=== PATIENT | male | born 1955 | race Two or more races ===

== ENCOUNTER 2016-12-17 16:03 | Outpatient (CLI) | payer MEDICARE, MEDICAID ==
[~2016-12-17 16:03] MED LIST: BISO1TAB7 PO; CLON0.5T PO; CYAN500T4 PO; DIPH50CA4 PO; ERGO500047 PO; FURO-144 PO; ZIPR40CA2 PO; ZOLP10TA2 PO; [UNRECOGNIZED DRUG - CODE] PO
== END 2016-12-17 23:59 | disposition home or self-care (01) ==
LOC: RAD 16:03
PROVIDERS: ATTEND Internal Medicine Hematology & Oncology
DX: J90 Pleural effusion, not elsewhere classified (principal); I67.82 Cerebral ischemia; R42 Dizziness and giddiness; G31.9 Degenerative disease of nervous system, unspecified
CPT/HCPCS: 70450-TC; 71020-TC

== ENCOUNTER 2017-02-10 10:21 | Outpatient (CLI) | payer MEDICARE, MEDICAID ==
[2017-02-10 10:58] LABS: BASOPHILS # (AUTO) 0.1 /CMM (0.0-0.2); BASOPHILS % (AUTO) 0.9 % (0.0-2.0); EOSINOPHILS # (AUTO) 0.2 /CMM (0.0-0.7); EOSINOPHILS % (AUTO) 2.8 % (0.0-6.0); HEMATOCRIT 40 % (39-51); HEMOGLOBIN 13.3 g/dL (13.5-17.5); LYMPHOCYTES # (AUTO) 1.3 /CMM (0.8-4.8); LYMPHOCYTES % (AUTO) 17.5 % (20.0-44.0); MEAN CORPUSCULAR HEMOGLOBIN 30 PG (26.0-33.0); MEAN CORPUSCULAR HGB CONC 33 g/dl (31.0-36.0); MEAN CORPUSCULAR VOLUME 90 fL (80-96); MONOCYTES # (AUTO) 0.5 /CMM (0.1-1.30); MONOCYTES % (AUTO) 6.5 % (2.0-12.0); NEUTROPHILS # (AUTO) 5.3 /CMM (1.8-8.9); NEUTROPHILS % (AUTO) 72.3 % (43.0-81.0); PLATELET COUNT (AUTO) 350 /CMM (150-450); RDW COEFFICIENT OF VARIATION 14.3 (11.5-15.0); RED BLOOD CELL COUNT(AUTO) 4.46 MIL/uL (4.5-6.0); WHITE BLOOD COUNT (AUTO) 7.4 K/uL (4.3-11.0)
[2017-02-10 11:29] LABS: ALBUMIN 3.9 g/dL (3.4-5.0); BILIRUBIN,TOTAL 0.5 mg/dL (0.2-1.0); CALCIUM, SERUM 9.3 mg/dL (8.5-10.1); CREATININE 1.2 mg/dL (0.6-1.3); TOTAL PROTEIN, SERUM 7.5 g/dL (6.4-8.2)
== END 2017-02-10 23:59 | disposition home or self-care (01) ==
LOC: LAB 10:21
PROVIDERS: ATTEND Internal Medicine Hematology & Oncology
DX: C92.11 Chronic myeloid leukemia, BCR/ABL-positive, in remission (principal); J90 Pleural effusion, not elsewhere classified; T45.1X5A Adverse effect of antineoplastic and immunosuppressive drugs, initial encounter
CPT/HCPCS: 36415; 71020-TC; 80053-TC; 85025-TC

== ENCOUNTER 2017-03-11 13:25 | Outpatient (CLI) | payer MEDICARE, MEDICAID ==
[2017-03-11 14:21] LABS: BASOPHILS % (AUTO) 0.5 % (0.0-2.0); EOSINOPHILS # (AUTO) 0.2 /CMM (0.0-0.7); EOSINOPHILS % (AUTO) 2.5 % (0.0-6.0); HEMATOCRIT 39 % (39-51); HEMOGLOBIN 12.9 g/dL (13.5-17.5); LYMPHOCYTES # (AUTO) 1.4 /CMM (0.8-4.8); LYMPHOCYTES % (AUTO) 16.4 % (20.0-44.0); MEAN CORPUSCULAR HEMOGLOBIN 29 PG (26.0-33.0); MEAN CORPUSCULAR HGB CONC 33 g/dl (31.0-36.0); MEAN CORPUSCULAR VOLUME 89 fL (80-96); MONOCYTES # (AUTO) 0.6 /CMM (0.1-1.30); MONOCYTES % (AUTO) 6.7 % (2.0-12.0); NEUTROPHILS # (AUTO) 6.2 /CMM (1.8-8.9); NEUTROPHILS % (AUTO) 73.9 % (43.0-81.0); PLATELET COUNT (AUTO) 275 /CMM (150-450); RDW COEFFICIENT OF VARIATION 15.3 (11.5-15.0); RED BLOOD CELL COUNT(AUTO) 4.41 MIL/uL (4.5-6.0); WHITE BLOOD COUNT (AUTO) 8.4 K/uL (4.3-11.0)
[2017-03-11 15:20] LABS: ALBUMIN 3.6 g/dL (3.4-5.0); BILIRUBIN,TOTAL 0.4 mg/dL (0.2-1.0); CALCIUM, SERUM 9.1 mg/dL (8.5-10.1); CREATININE 1.1 mg/dL (0.6-1.3); POTASSIUM 3.9 mmol/L (3.5-5.1); TOTAL PROTEIN, SERUM 7.2 g/dL (6.4-8.2)
[2017-03-11 15:36] LABS: THYROID STIMULATING HORMONE 0.947 uIU/mL (0.358-3.74)
== END 2017-03-11 23:59 | disposition home or self-care (01) ==
LOC: LAB 13:25
PROVIDERS: ATTEND Internal Medicine Hematology & Oncology
DX: J90 Pleural effusion, not elsewhere classified (principal); J98.11 Atelectasis
CPT/HCPCS: 36415; 71020-TC; 80053-TC; 82728-TC; 82746; 83540-TC; 84439-TC; 84443-TC; 85025-TC

== ENCOUNTER 2017-05-16 13:30 | Outpatient (CLI) | payer MEDICARE, MEDICAID | END 2017-05-16 23:59 | disposition home or self-care (01) | LOC: WOU 13:30 | PROVIDERS: ATTEND Surgery | DX: L72.3 Sebaceous cyst (principal); I10 Essential (primary) hypertension; C92.10 Chronic myeloid leukemia, BCR/ABL-positive, not having achieved remission; F17.200 Nicotine dependence, unspecified, uncomplicated | CPT/HCPCS: 82962-TC; G0463 ==

== ENCOUNTER 2017-08-25 10:02 | Inpatient (IN) | payer MEDICARE, MEDICAID ==
[~2017-08-25] VITALS: Ht 182.9 cm; Wt 99.8 kg
--- NOTE | 2017-08-25 10:07 | NUR ---
BBRA 89 FROM HOME FOR CP X 3 DAYS. GOWNED PT . PLACED ON MONITOR. AWAITING MD ORDER. PT HAS LAC #20 IV ACCESS. BLOOD SAMPLE COLLECTED SENT TO LAB
[2017-08-25] MEDS ORDERED: ASPIRIN 81 MG TAB.CHEW ONE (10:12)
[2017-08-25] MEDS ORDERED: NITROGLYCERIN PACKET 1 GM PACKET ONE (10:12)
--- NOTE | 2017-08-25 10:14 | NUR ---
ekg in progress
[2017-08-25 10:24] LABS: BASOPHILS % (AUTO) 0.3 % (0.0-2.0); EOSINOPHILS # (AUTO) 0.1 /CMM (0.0-0.7); EOSINOPHILS % (AUTO) 0.5 % (0.0-6.0); HEMATOCRIT 40 % (39-51); HEMOGLOBIN 13.3 g/dL (13.5-17.5); LYMPHOCYTES % (AUTO) 8.7 % (20.0-44.0); MEAN CORPUSCULAR HEMOGLOBIN 30 PG (26.0-33.0); MEAN CORPUSCULAR HGB CONC 33 g/dl (31.0-36.0); MEAN CORPUSCULAR VOLUME 91 fL (80-96); MONOCYTES # (AUTO) 0.9 /CMM (0.1-1.30); MONOCYTES % (AUTO) 7.8 % (2.0-12.0); NEUTROPHILS # (AUTO) 9.9 /CMM (1.8-8.9); NEUTROPHILS % (AUTO) 82.7 % (43.0-81.0); PLATELET COUNT (AUTO) 239 /CMM (150-450); RDW COEFFICIENT OF VARIATION 18.1 (11.5-15.0); RED BLOOD CELL COUNT(AUTO) 4.43 MIL/uL (4.5-6.0)
--- NOTE | 2017-08-25 10:24 | NUR ---
IRRIGATOR GRAVITY FLOW AT BEDSIDE
[2017-08-25] MEDS ORDERED: NITROGLYCERIN PACKET 1 GM PACKET TD ONE (10:30)
[2017-08-25] MEDS ORDERED: ASPIRIN 81 MG TAB.CHEW PO ONE (10:30)
[2017-08-25 10:35] LABS: CALCIUM, SERUM 8.7 mg/dL (8.5-10.1); CREATININE 0.8 mg/dL (0.6-1.3); POTASSIUM 3.3 mmol/L (3.5-5.1)
[2017-08-25 10:39] LABS: INR 0.9 (0.87-1.13); PROTHROMBIN TIME 9.4 SECS (9.5-12.7)
[2017-08-25 10:41] LABS: ALBUMIN 3.7 g/dL (3.4-5.0); BILIRUBIN,DIRECT 0.2 mg/dL (0.0-0.2); BILIRUBIN,TOTAL 0.6 mg/dL (0.2-1.0); TOTAL PROTEIN, SERUM 7.3 g/dL (6.4-8.2)
[2017-08-25] MEDS ORDERED: AMLO5TAB2 PO (10:41)
[2017-08-25] MEDS ORDERED: ATOR10TA PO (10:41)
[2017-08-25] MEDS ORDERED: ASPI81TA2 PO (10:41)
[2017-08-25 10:43] LABS: TROPONIN I 0.018 ng/mL (0.00-0.056)
[2017-08-25] MEDS ORDERED: CT SWABBABLE VALVE TRANS SET 1 EA INFUS.SET MC ONE (10:51)
[2017-08-25] MEDS ORDERED: IOHEXOL-350 100 ML VIAL IV ONE (10:51)
[2017-08-25] MEDS ORDERED: IV NS 0.9% 250 ML IV ONE (10:52)
[2017-08-25 11:00] VITALS: BP 143/85
--- NOTE | 2017-08-25 12:27 | NUR ---
Report called to Soraya FERNANDEZ for continuity of care
--- NOTE | 2017-08-25 13:00 | NUR ---
SHEET METAL APPRENTICEADJUSTER ARBITRATOR NOTE PATIENT IS ALERT AND ORIENTED x4. NO COMPLAINTS OF CHEST PAIN AT THIS TIME. NO SOB OR DISTRESS NOTED. CALL LIGHT WITHIN REACH. SAFETY MEASURES IMPLEMENTED. ABLE TO COMMUNICATE NEEDS. ALL BELONGINGS ACCOUNTED FOR AND AT BEDSIDE WITH PATIENT. LEFT AC IV 18 G INTACT AND PATENT NO REDNESS OR SWELLING NOTED. RIGHT AC 20 G IV INTACT AND PATENT NO REDNESS OR SWELLING NOTED. PATIENT HAS RIGHT KNEE SCAB, PICTURE TAKEN AND DOCUMENT. PATIENT IS ALLERGIC TO LISINOPRIL, ALLERGY DOCUMENTED. CAME INTO THE ER DUE TO HAVING CHEST PAIN FOR 3 DAYS, PATIENT GIVEN ASPIRIN AND NITRO IN ER. AWAITING MD ORDERS. TELE MONITOR ON SR/ST -98 WITH PAC'S AND PVCS. WILL CONTINUE TO MONITOR
[2017-08-25] MEDS ORDERED: IV NS 0.9% 1,000 ML IV PRN ×2 (13:04→16:15)
[2017-08-25] MEDS ORDERED: NITROGLYCERIN 0.4 MG/TAB BOTTLE SL PRN (13:30)
[2017-08-25] MEDS ORDERED: ACETAMINOPHEN 325 MG TABLET PO PRN (13:30)
[2017-08-25] MEDS ORDERED: ONDANSETRON HCL/PF 4 MG/2 ML VIAL IVP PRN (13:30)
[2017-08-25] MEDS ORDERED: MAG HYDROX/AL HYDROX/SIMETH 30 ML UDC PO PRN (13:30)
[2017-08-25] MEDS ORDERED: ALBUTEROL FS 2.5 MG/3 ML VIAL.NEB NEB PRN (13:30)
[2017-08-25] MEDS ORDERED: Z GUARD REMEDY 2 OZ OINT TP PRN (13:30)
[2017-08-25] MEDS ORDERED: MORPHINE SULFATE INJ 2 MG/ML DISP.SYRIN IV PRN (13:30)
[2017-08-25] MEDS ORDERED: MAGNESIUM HYDROXIDE 30 ML UDC PO PRN (13:30)
[2017-08-25] MEDS ORDERED: clonazePAM 0.5 MG TABLET PO PRN (13:30)
[2017-08-25] MEDS: ENOXAPARIN SODIUM 40 MG/0.4 ML DISP.SYRIN SQ SCH (13:36)
[2017-08-25 16:00] VITALS: BP 144/92
[2017-08-25] MEDS ORDERED: FLU VACC QS 2017-18(36MOS+)/PF 0.5 ML DISP.SYRIN IM ONE (17:00)
--- NOTE | 2017-08-25 17:30 | NUR ---
GUT CARRIER NOTE FLU SHOT ADMINISTERED. CONSENT OBTAINED BY PATIENT. DOCUMENTED.
[2017-08-25 18:35] LABS: THYROID STIMULATING HORMONE 0.761 uIU/mL (0.358-3.74)
--- NOTE | 2017-08-25 18:41 | NUR ---
MOP HANDLE ASSEMBLER CLOSING NOTE PATIENT IS ALERT AND ORIENTED X4. NO CHEST PAIN AT THIS TIME. NO SOB OR DISTRESS NOTED, CALL LIGHT WITHIN REACH AT ALL TIMES. SAFETY MEASURES IMPLEMENTED. ABLE TO COMMUNICATE NEEDS. BOTH IVS INTACT AND PATENT NO REDNESS OR SWELLING NOTED. NPO AT MIDNIGHT FOR NM MYOCARDIAL STRESS TEST, CONSENT OBTAINED. CT WITHOUT CONTRAST TO BE DONE. TELE MONITOR IN PLACE SR/ST WITH PAC/PVC. IV FLUIDS RUNNING AT 75 ML/HR. WILL ENDORSE TO CLINICAL RESOURCE DIRECTOR FOR KATHIA Addendum: 08/25/17 at 1851 by GEORGIA ROSADO RN AWARE OF POTASSIUM 3.3 NO NEW ORDERS AT THIS TIME. CALLED X2. AWAITING CALL BACK TO FOLLOW UP
--- NOTE | 2017-08-25 19:30 | NUR ---
TELE/MORTGAGE LOAN REVIEWER; RECEIVED PT IN BED AWAKE, ALERT AND ORIENTED. NO C/O OF CHEST PAIN AT THIS TIME. BREATHING NON LABORED. IVF RESUMED OF NS AT 75 ML /HOUR TO HIS RAC LINE. BED ON LOWER POSITION AND LOCKED FOR SAFETY. UPPER PART OF BED SIDE RAILS ARE UP FOR SAFETY. PT REMINDED FOR NPO AFTER MIDNIGHT . CONTINUE TO MONITOR CALL LIGHT WITHIN REACH.
[2017-08-25 20:00] VITALS: BP 150/83
[2017-08-25] MEDS: ZOLPIDEM TARTRATE 5 MG TABLET PO PRN (21:41)
[2017-08-25] MEDS ORDERED: ATORVASTATIN 40 MG TABLET PO SCH (22:00)
[2017-08-26] VITALS: BP 142/77
[2017-08-26] MEDS ORDERED: IV NS 0.9% 1,000 ML IV PRN
[2017-08-26 08:00] VITALS: BP_SYST 112; BP_SYST 126; BP_DIAS 58; BP_DIAS 78
[2017-08-26] MEDS: AMLODIPINE BESYLATE 5 MG TABLET PO SCH (09:00)
[2017-08-26] MEDS ORDERED: ASPIRIN 81 MG TAB.CHEW PO SCH (09:00)
[2017-08-26] MEDS: ENOXAPARIN SODIUM 40 MG/0.4 ML DISP.SYRIN SQ SCH (09:00)
[2017-08-26] MEDS: ATORVASTATIN 10 MG TABLET PO SCH (09:00)
[2017-08-26] MEDS: ASPIRIN 81 MG TAB.CHEW PO SCH (09:00)
--- NOTE | 2017-08-26 09:00 | NUR ---
agent telegrapher: notes meditech down, am meds given as ordered. pt for stress test at 1100 per sonu (WEbook med tech). pt aware. breakfast held. instructed to call for assistance.
[2017-08-26 10:35] LABS: CALCIUM, SERUM 8.4 mg/dL (8.5-10.1); CREATININE 0.7 mg/dL (0.6-1.3); MAGNESIUM 1.9 mg/dL (1.8-2.4); PHOSPHORUS 3.4 mg/dL (2.5-4.9); POTASSIUM 3.3 mmol/L (3.5-5.1)
[2017-08-26 11:42] LABS: BASOPHILS % (AUTO) 0.4 % (0.0-2.0); EOSINOPHILS # (AUTO) 0.1 /CMM (0.0-0.7); EOSINOPHILS % (AUTO) 1.4 % (0.0-6.0); HEMATOCRIT 36 % (39-51); HEMOGLOBIN 11.9 g/dL (13.5-17.5); LYMPHOCYTES # (AUTO) 1.2 /CMM (0.8-4.8); MEAN CORPUSCULAR HEMOGLOBIN 30 PG (26.0-33.0); MEAN CORPUSCULAR HGB CONC 33 g/dl (31.0-36.0); MEAN CORPUSCULAR VOLUME 92 fL (80-96); MONOCYTES # (AUTO) 0.9 /CMM (0.1-1.30); MONOCYTES % (AUTO) 10.4 % (2.0-12.0); NEUTROPHILS # (AUTO) 6.6 /CMM (1.8-8.9); NEUTROPHILS % (AUTO) 74.8 % (43.0-81.0); PLATELET COUNT (AUTO) 204 /CMM (150-450); RDW COEFFICIENT OF VARIATION 18.4 (11.5-15.0); RED BLOOD CELL COUNT(AUTO) 3.92 MIL/uL (4.5-6.0); WHITE BLOOD COUNT (AUTO) 8.9 K/uL (4.3-11.0)
[2017-08-26 12:00] VITALS: BP 141/75
--- NOTE | 2017-08-26 12:20 | NUR ---
tele coat hanger shaper machine operator: notes brought down by sonu (nuclear med tech) for stress test via w/c at this time. will order lunch when pt gets back.
[2017-08-26] MEDS ORDERED: REGADENOSON 0.4 MG/5 ML DISP.SYRIN IVP ONE (12:47)
--- NOTE | 2017-08-26 13:30 | NUR ---
tele steam engineer: notes pt back from stress test and to be medicinal plant picker again in an hour per nuclear med. lunch served. instructed to call for assistance. will continue to monitor.
[2017-08-26] MEDS ORDERED: POTASSIUM CL. PREMIX PERIPHER. 50 ML IV SCH (15:01)
--- NOTE | 2017-08-26 15:18 | NUR ---
tele evp head of sm[employer] strategy: notes stress test completed and result will be available in a couple of hours per sonu (nuclear med).
[2017-08-26] MEDS ORDERED: POTASSIUM CHLORIDE 20 MEQ TAB.PRT.SR PO ONE (15:30)
--- NOTE | 2017-08-26 15:54 | NUR ---
tele recep: notes stress test resulted: IMPRESSION:1. 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 2. No wall motion abnormalities. 3. The left ventricle ejection fraction at stress is 50%. A call report was made to Dr. Freitas at 03:47 p.m. on August 26, [address] crespo (radiologist).
[2017-08-26 16:00] VITALS: BP 149/97
--- NOTE | 2017-08-26 17:39 | NUR ---
tele cushion spring assembler: notes tele removed per order.
--- NOTE | 2017-08-26 18:15 | NUR ---
m/s health information provider: notes pt up and about and requested to have his ambien change from 5mg to 10mg. per pt he spoke to dr. moncada earlier and will increase med per groundman. informed pt the hospitalist will have to change the dose, not the groundman, but md has gone for the day and will f/u as instructed.
--- NOTE | 2017-08-26 19:40 | NUR ---
spoke with patient, stated he lives with roommates in a sober living. He is ambulatory and independent with adl's. His pc is Dr. Walter. Patient requires assistance/taxi transportation upon discharge. Addendum: 08/26/17 at 1941 by HERNÁN SIFUENTES RN Amended: Links added.
[2017-08-26 20:00] VITALS: BP 164/101
--- NOTE | 2017-08-26 20:15 | NUR ---
MS/RN OPENING NOTES PATIENT ABLE TO WALK IN THE HALLWAY ACCOMPANIED BY FRIEND EARLIER, BELONGINGS OF PAIR OF SHOES AND BELT WERE CHECK IN , INVENTORY LIST ADDED. PATIENT B/P WAS ELEVATED AND RECHECK 140/74, PROVIDED NEW BED SHEET AND EXTRA PILLOW,. PATIETN COMPLAINED OF NOT ABLE TO SLEEP AND PREFER TO HAVE KLONOPIN NOW AND AMBIEN LATER. REQUETED THAT HE TAKES AMBIEN 10MG. WILL F/U .
[2017-08-26 20:42] VITALS: BP 140/74
--- NOTE | 2017-08-26 20:55 | NUR ---
MS/RN NOTES PATIENT REPORTED TOOTH PAIN AND REQUEST FOR NORCO 5-325MG PO AND WANT AMBIEN 5 MG PO TO SLEEP. WILL MONITOR MEDICATION EFFECTIVENESS.
[2017-08-26] MEDS: ZOLPIDEM TARTRATE 5 MG TABLET PO PRN (20:56)
[2017-08-26] MEDS: HYDROCODONE/APAP 5/325MG 1 EACH TABLET PO PRN (20:57)
--- NOTE | 2017-08-26 22:08 | NUR ---
ms/rn notes PATIENT IV ON RIGHT HAND REMOVED AND REFUSED TO HAVE IV REINSERTED. PATIENT HAS BEED DRINKING FLUIDS AND HAD 1600 ML FLUIDS INTAKE , HAD EATEN EGG SANDWICH AND PROVIDED NEEDS. INFORMED CHARGE NURSE AND WILL FOLLOW UP FOR ANY CHANGES.PAIN MEDICATION FOR TOOTH ACHE GIVEN BUT NO CHEST PAIN.
[2017-08-27] MEDS: HYDROCODONE/APAP 5/325MG 1 EACH TABLET PO PRN ×2 (03:40→10:25)
--- NOTE | 2017-08-27 03:44 | NUR ---
MS/RN NOTES PATIENT WAS ABLE TO SLEEP DURING THE NIGHT, WOKE UP AT 345 AND ASK FOR PAIN MED DUE TO TOOTHACHE, 03/16 ADMINISTERED NORCO 5-325 MG PO AND MONITOR FOR EFFECTIVENESS.
--- NOTE | 2017-08-27 06:32 | NUR ---
322-1 MS/ RN OPENING NOTES PATIENT ALERT, ORIENTED. PROVIDED NEEDS. ABLE TO SLEEP DUFING THE HARMONY. WILL CONTINUE TO MONITOR.
[2017-08-27 07:31] LABS: CALCIUM, SERUM 8.5 mg/dL (8.5-10.1); CREATININE 0.7 mg/dL (0.6-1.3); PHOSPHORUS 3.8 mg/dL (2.5-4.9); POTASSIUM 3.7 mmol/L (3.5-5.1)
[2017-08-27 08:00] VITALS: BP 146/90
[2017-08-27] MEDS: ASPIRIN 81 MG TAB.CHEW PO SCH (08:23)
[2017-08-27] MEDS: ATORVASTATIN 10 MG TABLET PO SCH (08:23)
[2017-08-27] MEDS: AMLODIPINE BESYLATE 5 MG TABLET PO SCH (08:23)
[2017-08-27] MEDS: ENOXAPARIN SODIUM 40 MG/0.4 ML DISP.SYRIN SQ SCH (08:23)
--- NOTE | 2017-08-27 10:25 | NUR ---
medicated for lt. jaw pain with norco.
[2017-08-27] MEDS ORDERED: AMOXICILLIN TRIHYDRATE 250 MG CAPSULE PO SCH (13:00)
--- NOTE | 2017-08-27 13:00 | NUR ---
dr. silverio in to see pt.
[2017-08-27] MEDS ORDERED: ZOLPIDEM TARTRATE 5 MG TABLET PO PRN (13:30)
--- NOTE | 2017-08-27 14:30 | NUR ---
dr. guevara in to see pt.
--- NOTE | 2017-08-27 15:00 | NUR ---
dc photo taken.rxs called to pt. pharm. and med sheets faxed as well.
[2017-08-27] MEDS ORDERED: AMOX250C PO (15:14)
[2017-08-27] MEDS ORDERED: FERR325T28 PO (15:14)
[2017-08-27] MEDS ORDERED: AMLO5TAB2 PO (15:14)
[2017-08-27 16:00] VITALS: BP 140/91
--- NOTE | 2017-08-27 16:50 | NUR ---
all dc papers signed,belonging sheet signed.ambulated to lobby accompanied by mds manager for taxi curing pickling packer.
[2017-08-27] MEDS ORDERED: FERROUS SULFATE (325 MG) 325 MG/TAB TABLET PO SCH (17:00)
== END 2017-08-27 16:50 | disposition home or self-care (01) | DRG 392 ==
LOC: ER 10:04 → TELE 12:25 → MED 08-26 17:38
PROVIDERS: ADMIT Internal Medicine; ATTEND Internal Medicine
DX: K21.9 Gastro-esophageal reflux disease without esophagitis (principal); E44.1 Mild protein-calorie malnutrition; G62.9 Polyneuropathy, unspecified; K76.0 Fatty (change of) liver, not elsewhere classified; C92.11 Chronic myeloid leukemia, BCR/ABL-positive, in remission; D50.9 Iron deficiency anemia, unspecified; F17.210 Nicotine dependence, cigarettes, uncomplicated; I25.10 Atherosclerotic heart disease of native coronary artery without angina pectoris; E78.5 Hyperlipidemia, unspecified; F31.9 Bipolar disorder, unspecified; F41.9 Anxiety disorder, unspecified; I10 Essential (primary) hypertension; Z79.899 Other long term (current) drug therapy; I73.9 Peripheral vascular disease, unspecified; Z68.29 Body mass index [BMI] 29.0-29.9, adult; R29.6 Repeated falls; R94.31 Abnormal electrocardiogram [ECG] [EKG]; K05.219 Aggressive periodontitis, localized, unspecified severity
CPT/HCPCS: 36415; 70450-TC; 71010-TC; 80048-TC; 80061-TC; 80076-TC; 82728-TC; 82746; 83540-TC; 83735-TC; 84100-TC; 84443-TC; 84484-TC; 85025-TC; 85730-TC; 87040-TC; 87081-TC; 93307-TC; A4606; A9502; J1650; J2785; J7030; J7050; Q2036; Q9967; Z7610

== ENCOUNTER 2017-10-24 13:47 | Outpatient (CLI) | payer MEDICARE, MEDICAID ==
[~2017-10-24 13:47] MED LIST changes: -ASPI-1169 PO; +ASPI81TA2 PO; -DULO30CA2 PO; -FERR-58 PO; -LEVO750T21 PO; -RIVA10TA PO
[2017-10-24] MEDS ORDERED: FERR-58 PO (19:24)
[2017-10-24] MEDS ORDERED: AMLO5TAB2 PO (19:24)
== END 2017-10-24 23:59 | disposition home or self-care (01) ==
LOC: RAD 13:47
PROVIDERS: ATTEND Internal Medicine Hematology & Oncology
DX: J90 Pleural effusion, not elsewhere classified (principal); J98.11 Atelectasis; M47.894 Other spondylosis, thoracic region
CPT/HCPCS: 71020-TC

== ENCOUNTER 2017-10-24 17:33 | Inpatient (IN) | payer MEDICARE, MEDICAID ==
[~2017-10-24] VITALS: Ht 177.8 cm; Wt 94.5 kg
[~2017-10-24 17:33] MED LIST changes: +ASPI-1169 PO; -ASPI81TA2 PO
[2017-10-24] MEDS ORDERED: ALBUTEROL FS 2.5 MG/0.5 ML VIAL.NEB NEB ONE (18:00)
[2017-10-24] MEDS ORDERED: IPRATROPIUM NEB FS 0.5 MG/2.5 ML AMPUL.NEB NEB ONE (18:00)
[2017-10-24] MEDS ORDERED: ALBUTEROL FS 2.5 MG/0.5 ML VIAL.NEB ONE (18:02)
[2017-10-24] MEDS ORDERED: IPRATROPIUM NEB FS 0.5 MG/2.5 ML AMPUL.NEB ONE (18:02)
[2017-10-24 18:20] LABS: BASOPHILS # (AUTO) 0.1 /CMM (0.0-0.2); BASOPHILS % (AUTO) 1.2 % (0.0-2.0); EOSINOPHILS # (AUTO) 0.2 /CMM (0.0-0.7); EOSINOPHILS % (AUTO) 1.6 % (0.0-6.0); HEMATOCRIT 39 % (39-51); HEMOGLOBIN 13.3 g/dL (13.5-17.5); LYMPHOCYTES # (AUTO) 0.9 /CMM (0.8-4.8); LYMPHOCYTES % (AUTO) 7.4 % (20.0-44.0); MEAN CORPUSCULAR HEMOGLOBIN 31 PG (26.0-33.0); MEAN CORPUSCULAR HGB CONC 35 g/dl (31.0-36.0); MEAN CORPUSCULAR VOLUME 91 fL (80-96); MONOCYTES # (AUTO) 0.6 /CMM (0.1-1.30); MONOCYTES % (AUTO) 5.4 % (2.0-12.0); NEUTROPHILS % (AUTO) 84.4 % (43.0-81.0); PLATELET COUNT (AUTO) 323 /CMM (150-450); RDW COEFFICIENT OF VARIATION 15.2 (11.5-15.0); RED BLOOD CELL COUNT(AUTO) 4.25 MIL/uL (4.5-6.0); WHITE BLOOD COUNT (AUTO) 11.8 K/uL (4.3-11.0)
--- NOTE | 2017-10-24 18:20 | NUR ---
BIBRA C/O/ RLE PAIN "CLOT". AAO4. NONLABORED RESP. 99% O2 SATS.
--- NOTE | 2017-10-24 18:21 | NUR ---
MANAGER TELECOM WAS PAGED TO BEDSIDE
[2017-10-24 18:29] LABS: CALCIUM, SERUM 9.3 mg/dL (8.5-10.1); CARBON DIOXIDE 27 mmol/L (21-32); CHLORIDE 99 mmol/L (98-107); CREATININE 1.1 mg/dL (0.6-1.3); GLUCOSE 213 mg/dL (74-106); POTASSIUM 3.4 mmol/L (3.5-5.1); SODIUM SERUM 135 mmol/L (136-145); UREA NITROGEN, BLOOD 18 mg/dL (7-18)
[2017-10-24 18:32] LABS: INR 0.97 (0.87-1.13); PROTHROMBIN TIME 10.1 SECS (9.5-12.7)
[2017-10-24 18:35] LABS: ALANINE AMINOTRANSFERASE 30 U/L (12-78); ALBUMIN 3.7 g/dL (3.4-5.0); ALKALINE PHOSPHATASE 107 U/L (46-116); ASPARTATE AMINOTRANSFERASE 27 U/L (15-37); BILIRUBIN,DIRECT 0.2 mg/dL (0.0-0.2); BILIRUBIN,TOTAL 0.7 mg/dL (0.2-1.0); TOTAL PROTEIN, SERUM 7.9 g/dL (6.4-8.2)
[2017-10-24 18:37] LABS: TROPONIN I 0.021 ng/mL (0.00-0.056)
[2017-10-24] MEDS ORDERED: IOHEXOL-350 100 ML VIAL IV ONE (18:38)
[2017-10-24] MEDS ORDERED: IV NS 0.9% 250 ML IV ONE (18:38)
[2017-10-24] MEDS ORDERED: POTASSIUM CHLORIDE 20 MEQ TAB.PRT.SR PO ONE ×2 (18:44→19:00)
[2017-10-24] MEDS ORDERED: ENOXAPARIN SODIUM 60 MG/0.6 ML DISP.SYRIN SQ ONE ×2 (18:54→19:00)
[2017-10-24] MEDS ORDERED: ENOXAPARIN SODIUM 40 MG/0.4 ML DISP.SYRIN SQ ONE (18:54)
--- NOTE | 2017-10-24 18:57 | NUR ---
PT STABLE. TAKEN TO CT NOW. RLE DOPPLER SHOWS LARGE DVT. LOVENOX 90MG GIVEN. REPORT GIVEN TO NOC REBECCA, DAPHNIE.
[2017-10-24] MEDS ORDERED: LEVOFLOXACIN 750 MG /D5W 150ML PIGGYBACK IV ONE (19:00)
--- NOTE | 2017-10-24 19:01 | NUR ---
DR MITCHELL WAS PAGED
[2017-10-24] MEDS ORDERED: FERR-58 PO (19:24)
[2017-10-24] MEDS ORDERED: AMLO5TAB2 PO (19:24)
[2017-10-24] MEDS ORDERED: LEVOFLOXACIN 750 MG /D5W 150ML 150 ML IV ONE ×2 (19:25→22:40)
--- NOTE | 2017-10-24 19:29 | NUR ---
PATIENT BACK FROM CT. WILL CONTINUE TO MONITOR
[2017-10-24] MEDS ORDERED: VANCOMYCIN 1 GM in IV D5W 250 ML IV ONE (19:30)
[2017-10-24] MEDS ORDERED: IV NS 0.9% 1,000 ML BAG IV ONE (19:30)
--- NOTE | 2017-10-24 19:31 | NUR ---
RUNNING ATLyudmila PALACIOS
[2017-10-24] MEDS ORDERED: VANCOMYCIN 1 GM VIAL ONE (19:44)
--- NOTE | 2017-10-24 19:54 | NUR ---
AWAITING BED FOR ADMISSION. IVF RUNNING
--- NOTE | 2017-10-24 20:18 | NUR ---
2ND IV STARTED RAC 18G
--- NOTE | 2017-10-24 20:38 | NUR ---
IVPB MAURO RUNNING THROUGH RAC 18G. IVF RUNNING IVPB 18G
--- NOTE | 2017-10-24 20:47 | NUR ---
HOSPITALIST YVON AT BEDSIDE SPEAKING/ASSESSING PATIENT
--- NOTE | 2017-10-24 20:54 | NUR ---
ECHOCARDIGRAM IN PROGRESS
[2017-10-24] MEDS ORDERED: IV NS 0.9% 1,000 ML IV PRN (21:25)
[2017-10-24] MEDS ORDERED: HYDROCODONE/APAP 5/325MG 1 EACH TABLET PO PRN (21:30)
[2017-10-24] MEDS ORDERED: MAG HYDROX/AL HYDROX/SIMETH 30 ML UDC PO PRN (21:30)
[2017-10-24] MEDS ORDERED: ACETAMINOPHEN 325 MG TABLET PO PRN (21:30)
[2017-10-24] MEDS ORDERED: Z GUARD REMEDY 2 OZ OINT TP PRN (21:30)
[2017-10-24] MEDS ORDERED: ONDANSETRON HCL/PF 4 MG/2 ML VIAL IVP PRN (21:30)
[2017-10-24] MEDS ORDERED: HYDROCODONE/APAP 10/325MG 1 EA TABLET PO PRN (21:30)
[2017-10-24] MEDS ORDERED: MAGNESIUM HYDROXIDE 30 ML UDC PO PRN (21:30)
--- NOTE | 2017-10-24 22:03 | NUR ---
REPORT GIVEN TO ISAAC TYLER
[2017-10-24 22:27] VITALS: BP 140/96
--- NOTE | 2017-10-24 22:30 | NUR ---
LAUNDRY TECHNICIAN INITIAL NOTE RECEIVED REPORT FROM ARASELI RN, PT TRANSPORTED TO ICU BY ZENOBIA WILSON. PT IN [facility]. A/A/O X4. LUNG SOUNDS CLEAR. BOWEL SOUNDS PRESENT. IV PATENT AND INTACT. PT CONTINENT TO BOTH URINE AND STOOL. LEFT KNEE ABRASION NOTED, SACRAL SKIN INTACT. PULSES PRESENT. BED IN LOW LOCKED POSITION. CALL LIGHT WITHIN REACH. WILL CONTINUE TO MONITOR.
[2017-10-24 22:31] VITALS: BP 141/84
[2017-10-24] MEDS ORDERED: ENOXAPARIN SODIUM 100 MG/ML DISP.SYRIN SQ ONE (22:40)
[2017-10-24] MEDS ORDERED: ATORVASTATIN 10 MG TABLET ONE (22:40)
[2017-10-24] MEDS: ATORVASTATIN 10 MG TABLET PO SCH (22:44)
[2017-10-24] MEDS: LEVOFLOXACIN 750 MG /D5W 150ML 750 MG in PREMIX 1 EA IV SCH (22:44)
[2017-10-24] MEDS: ENOXAPARIN SODIUM 100 MG/ML DISP.SYRIN SQ SCH (22:45)
[2017-10-24 23:00] VITALS: BP 145/85
[2017-10-25] VITALS (23 sets, daily range): BP systolic 93–160; BP diastolic 55–113
[2017-10-25 00:03] LABS: APPEARANCE,URINE CLEAR (CLEAR); BILIRUBIN,URINE NEGATIVE (NEGATIVE); BLOOD, URINE NEGATIVE Ery/uL (NEGATIVE); COLOR,URINE YELLOW (YELLOW); KETONES,URINE NEGATIVE (NEGATIVE); LEUKOCYTE ESTERASE ,URINE NEGATIVE (NEGATIVE); NITRITE, URINE NEGATIVE (NEGATIVE); PROTEIN,URINE NEGATIVE (NEGATIVE); UGLUCOSE NEGATIVE (NEGATIVE)
[2017-10-25] MEDS ORDERED: clonazePAM 0.5 MG TABLET ONE (00:07)
[2017-10-25] MEDS ORDERED: ZOLPIDEM TARTRATE 10 MG TABLET ONE (00:08)
[2017-10-25] MEDS: ZOLPIDEM TARTRATE 10 MG TABLET PO PRN ×2 (00:09→21:25)
[2017-10-25] MEDS: clonazePAM 0.5 MG TABLET PO PRN ×3 (00:09→21:24)
[2017-10-25 00:15] LABS: BACTERIA,URINE None seen /HPF (None Seen); RBC,URINE NONE SEEN /HPF (0-2); SQUAMOUS EPITHELIAL CELL,UR Rare /HPF (None Seen); WBC,URINE 0-2 /HPF (0-3)
--- NOTE | 2017-10-25 04:00 | NUR ---
INFANT CHILDCARE PROVIDER PATIENT REFUSING MORNING DRAW AT THIS TIME. PT DOES NOT WANT BP TAKEN AT THIS TIME AND WANTS ALL ALARMS IN ROOM OFF. IV OFF OF 0400. IV KEPT ALARMING DUE TO "OCCLUSION". WILL CONTINUE TO MONITOR.
[2017-10-25 07:51] LABS: BASOPHILS % (AUTO) 0.5 % (0.0-2.0); EOSINOPHILS # (AUTO) 0.3 /CMM (0.0-0.7); EOSINOPHILS % (AUTO) 3.5 % (0.0-6.0); HEMATOCRIT 33 % (39-51); LYMPHOCYTES # (AUTO) 0.8 /CMM (0.8-4.8); MEAN CORPUSCULAR HEMOGLOBIN 31 PG (26.0-33.0); MEAN CORPUSCULAR HGB CONC 33 g/dl (31.0-36.0); MEAN CORPUSCULAR VOLUME 93 fL (80-96); MONOCYTES # (AUTO) 0.6 /CMM (0.1-1.30); MONOCYTES % (AUTO) 8.4 % (2.0-12.0); NEUTROPHILS # (AUTO) 5.9 /CMM (1.8-8.9); NEUTROPHILS % (AUTO) 77.6 % (43.0-81.0); PLATELET COUNT (AUTO) 231 /CMM (150-450); RDW COEFFICIENT OF VARIATION 15.9 (11.5-15.0); WHITE BLOOD COUNT (AUTO) 7.6 K/uL (4.3-11.0)
--- NOTE | 2017-10-25 08:00 | NUR ---
ICU/RN INITIAL NOTES,AM RECEIVED REPORT FROM NIGHT NURSE. PT ALERT,AWAKE, ORIENTED, FOLLOWS COMMANDS. ON RA, NO ACUTE DISTRESS NOTED AT THIS TIME. PT SINUS ON TELE, VSS. PIV PATENT AND INTACT, NO S/S OF INFECTION NOTED, IV FLUIDS INFUSING ORDERED. MORNING LABS DRAWN, RESULTS PENDING. ALL NEEDS WILL BE ATTENDED, SAFETY MEASURES TAKEN, BED IN LOW POSITION, SIDE RAILS UP, CALL LIGHT WITHIN REACH. WILL CONTINUE CARE.
[2017-10-25 08:16] LABS: CALCIUM, SERUM 8.6 mg/dL (8.5-10.1); CREATININE 0.7 mg/dL (0.6-1.3); MAGNESIUM 1.9 mg/dL (1.8-2.4); PHOSPHORUS 2.8 mg/dL (2.5-4.9); POTASSIUM 3.4 mmol/L (3.5-5.1)
[2017-10-25 08:20] LABS: THYROID STIMULATING HORMONE 1.434 uIU/mL (0.358-3.74)
[2017-10-25] MEDS ORDERED: POTASSIUM CL. PREMIX PERIPHER. 50 ML IV SCH (09:00)
[2017-10-25] MEDS ORDERED: POTASSIUM CHLORIDE 20 MEQ TAB.PRT.SR PO ONE ×2 (09:30→10:30)
[2017-10-25] MEDS: AMLODIPINE BESYLATE 5 MG TABLET PO SCH (09:32)
[2017-10-25] MEDS: FERROUS SULFATE (325 MG) 325 MG/TAB TABLET PO SCH ×2 (09:32→16:33)
[2017-10-25] MEDS: ENOXAPARIN SODIUM 100 MG/ML DISP.SYRIN SQ SCH ×2 (09:33→20:41)
--- NOTE | 2017-10-25 10:20 | NUR ---
ICU/RN: MD ROUNDS, PT ASSESSED NEW ORDERS RECEIVED, WILL CARRY OUT. ORDERS FOR POTASSIUM REPLACEMENT AND 2D ECHO. WILL COMPLETE.
--- NOTE | 2017-10-25 18:36 | NUR ---
patient lives with roommates in a sober living. He is ambulatory and independent with adl's. His pc is Dr. Walter. Patient might need assistance with transportation once discharge. Addendum: 10/25/17 at 1837 by HERNÁN SIFUENTES RN Amended: Links added.
--- NOTE | 2017-10-25 18:57 | NUR ---
ICU/RN ENDING NOTES,AM REPORT WILL BE ENDORSED TO NIGHT NURSE FOR CONTINUATION OF CARE. PT ON ROOM AIR, NO DISTRESS NOTED. PIV SALINE LOCK. ALL NEEDS MET, SAFETY MEASURES TAKEN, SIDE RAILS UP, CALL LIGHT WITHIN REACH. WILL CONTINUE CARE.
--- NOTE | 2017-10-25 20:00 | NUR ---
Received report from AM shift patient a/o x 4.Follows commands.VS stable.SR.On RA saturation 98%.Respiration even and unlabored.Denies pain or any discomfort.PIV intact. Voiding per urinal adequate amount.Safety measures maintained.Bed in low positioned and locked and Call light within reach.Care explained.Verbalized understanding.Will continue to monitor.
[2017-10-25] MEDS: LEVOFLOXACIN 750 MG /D5W 150ML 750 MG in PREMIX 1 EA IV SCH (21:23)
[2017-10-25] MEDS: ATORVASTATIN 10 MG TABLET PO SCH (21:24)
[2017-10-26] VITALS (24 sets, daily range): BP systolic 90–156; BP diastolic 41–97
--- NOTE | 2017-10-26 | NUR ---
Patient resting.VS remains stable.Denies pain or any discomfort.Independent with ADL.
--- NOTE | 2017-10-26 06:00 | NUR ---
Patient remains asymptomatic.VS stable.AM care done with patient assisting.
[2017-10-26 07:21] LABS: BASOPHILS % (AUTO) 0.6 % (0.0-2.0); EOSINOPHILS # (AUTO) 0.4 /CMM (0.0-0.7); HEMATOCRIT 35 % (39-51); HEMOGLOBIN 11.4 g/dL (13.5-17.5); LYMPHOCYTES # (AUTO) 0.7 /CMM (0.8-4.8); MEAN CORPUSCULAR HEMOGLOBIN 30 PG (26.0-33.0); MEAN CORPUSCULAR HGB CONC 33 g/dl (31.0-36.0); MEAN CORPUSCULAR VOLUME 93 fL (80-96); MONOCYTES # (AUTO) 0.7 /CMM (0.1-1.30); MONOCYTES % (AUTO) 10.1 % (2.0-12.0); NEUTROPHILS # (AUTO) 4.8 /CMM (1.8-8.9); NEUTROPHILS % (AUTO) 72.3 % (43.0-81.0); PLATELET COUNT (AUTO) 221 /CMM (150-450); RDW COEFFICIENT OF VARIATION 15.6 (11.5-15.0); RED BLOOD CELL COUNT(AUTO) 3.76 MIL/uL (4.5-6.0); WHITE BLOOD COUNT (AUTO) 6.7 K/uL (4.3-11.0)
[2017-10-26 07:41] LABS: CREATININE 0.8 mg/dL (0.6-1.3); POTASSIUM 4.3 mmol/L (3.5-5.1)
[2017-10-26 07:56] LABS: PHOSPHORUS 3.1 mg/dL (2.5-4.9)
--- NOTE | 2017-10-26 07:56 | NUR ---
ICU/RN INITIAL NOTES,AM RECEIVED REPORT FROM NIGHT NURSE. PT ALERT,AWAKE, ORIENTED, FOLLOWS COMMANDS. ON RA, NO ACUTE DISTRESS NOTED AT THIS TIME. PT SINUS ON TELE, VSS. PIV PATENT AND INTACT, NO S/S OF INFECTION NOTED. MORNING LABS DRAWN, RESULTS PENDING. ALL NEEDS WILL BE ATTENDED, URINAL AT BEDSIDE. SAFETY MEASURES TAKEN, BED IN LOW POSITION, SIDE RAILS UP, CALL LIGHT WITHIN REACH. WILL CONTINUE CARE.
[2017-10-26] MEDS: ENOXAPARIN SODIUM 100 MG/ML DISP.SYRIN SQ SCH ×2 (08:48→21:46)
[2017-10-26] MEDS: AMLODIPINE BESYLATE 5 MG TABLET PO SCH (08:48)
[2017-10-26] MEDS: FERROUS SULFATE (325 MG) 325 MG/TAB TABLET PO SCH ×2 (08:48→16:18)
[2017-10-26] MEDS: clonazePAM 0.5 MG TABLET PO PRN ×2 (08:50→21:35)
[2017-10-26] MEDS: DULOXETINE HCL 30 MG CAPSULE.DR PO SCH (16:19)
--- NOTE | 2017-10-26 18:24 | NUR ---
ICU/RN ENDING NOTES,AM REPORT WILL BE ENDORSED TO NIGHT NURSE FOR CONTINUATION OF CARE. PT ON ROOM AIR, NO DISTRESS. SINUS ON TELE. PT AMBULATORY, LINENS/GOWN CHANGED. URINAL AT BEDSIDE. ALL NEEDS ATTENDED TO, NO PAIN OR DISCOMFORT AT THIS TIME. ALL SAFETY MEASURES TAKEN, BED IN LOW POSITION, SIDE RAILS UP, CALL LIGHT WITHIN REACH.
--- NOTE | 2017-10-26 19:30 | NUR ---
KNOTTER: RECEIVED PT ALERT, AWAKE AND ORIENTED X 3. ON ROOM AIR WT NO ACUTE DISTRESS, NO C/O PAIN. SR ON TITLE I ASSISTANT. AFEBRILE. PERIPHERAL IVs INTACT AND PATENT WT NO S/S OF INFILTRATION. PT ABLE TO VOID ON URINAL WT CLEAR YELLOW URINE. INDEPENDENT WT ADLs AND BED MOBILITY. HOB AT 35 DEGREES. SAFETY PRECAUTION NOTED. CALL LIGHT WITHIN REACH. WILL CONTINUE TO MONITOR.
[2017-10-26] MEDS: TASIGNA 150 MG PO SCH (21:28)
[2017-10-26] MEDS: ATORVASTATIN 10 MG TABLET PO SCH (21:29)
[2017-10-26] MEDS: LEVOFLOXACIN 750 MG /D5W 150ML 750 MG in PREMIX 1 EA IV SCH (21:30)
[2017-10-26] MEDS: ZOLPIDEM TARTRATE 10 MG TABLET PO PRN (21:35)
[2017-10-27] VITALS: BP 130/69
--- NOTE | 2017-10-27 00:30 | NUR ---
FIRE WATCHER: NO KATHIA. VS WITHIN PATIENT'S BASELINE. WILL CONTINUE TO MONITOR.
[2017-10-27 01:00] VITALS: BP 120/49
--- NOTE | 2017-10-27 02:00 | NUR ---
DOWEL MACHINE OPERATOR: PT IS ASLEEP AT THIS TIME. ON TELE STATUS AND SAID HE DOES NOT WANT HIS BP TAKEN Q HOURLY SO HE CAN SLEEP. WILL TAKE BP AT 0400. SR ON HOT HEADER OPERATOR AND PT IS TELE STATUS.
--- NOTE | 2017-10-27 05:35 | NUR ---
AIRCONDITIONING PLANT OPERATOR: REPORT GIVEN TO REBECCA LIAO TO TRANSFER TO TELE 315-2.
[2017-10-27 05:45] VITALS: BP 120/94
--- NOTE | 2017-10-27 06:00 | NUR ---
PENSIONHOLDER INFORMATION CLERK: PT TRANSFERRED TO TELE FLOOR ROOM 315-2 AND ENDORSED ALL BELONGINGS DIANNE. CELL PHONE, KEYS AND WALLET TO STEVE LIAO. PT REFUSED TO GET CLEANED AT THIS TIME. NO ACUTE DISTRESS, NO C/O PAIN.
--- NOTE | 2017-10-27 06:30 | NUR ---
TELE CYCLE COUNTER NOTE RECEIVED PT TRANSFERRED FROM ICU VIA WHEELCHAIR, DX OF PULMONARY EMBOLISM. PT IS ALERT ORIENTED X4 ABLE TO AMBULATE , DENIES ANY PAIN OR ANY DISCOMFORT. RE-ORIENTED WHERE HE AT AND HOW TO USED THE CALL LIGHT AND AT THE SAME TIME ENCOURAGE HIM TO USE IT IF HE NEEDS SOME HELPED. ON TELE SR PER MONITOR. VITAL SIGNS FF. BP 136/86. PULSE 72, RESP 20, TEMP 98.8 AND O2 SAT 97%. KEPT HIM WARM AND COMFORTABLE AT ALL TIMES. ENDORSE TO AM NURSE FOR CONTINUITY OF CARE. PLACE CALL LIGHT AT REACH.
[2017-10-27 07:45] LABS: BASOPHILS % (AUTO) 0.6 % (0.0-2.0); EOSINOPHILS # (AUTO) 0.4 /CMM (0.0-0.7); EOSINOPHILS % (AUTO) 6.1 % (0.0-6.0); HEMATOCRIT 35 % (39-51); HEMOGLOBIN 11.5 g/dL (13.5-17.5); LYMPHOCYTES # (AUTO) 0.9 /CMM (0.8-4.8); LYMPHOCYTES % (AUTO) 12.2 % (20.0-44.0); MEAN CORPUSCULAR HEMOGLOBIN 31 PG (26.0-33.0); MEAN CORPUSCULAR HGB CONC 33 g/dl (31.0-36.0); MEAN CORPUSCULAR VOLUME 93 fL (80-96); MONOCYTES # (AUTO) 0.8 /CMM (0.1-1.30); MONOCYTES % (AUTO) 10.5 % (2.0-12.0); NEUTROPHILS # (AUTO) 5.1 /CMM (1.8-8.9); NEUTROPHILS % (AUTO) 70.6 % (43.0-81.0); PLATELET COUNT (AUTO) 238 /CMM (150-450); RDW COEFFICIENT OF VARIATION 15.6 (11.5-15.0); RED BLOOD CELL COUNT(AUTO) 3.73 MIL/uL (4.5-6.0); WHITE BLOOD COUNT (AUTO) 7.2 K/uL (4.3-11.0)
--- NOTE | 2017-10-27 07:47 | NUR ---
DIESEL MECHANIC APPRENTICE OPENING NOTES RECEIVED PATIENT IN STABLE CONDITION. IN NO APPARENT DISTRESS. PATIENT IS ALERT AND RESTING IN BED. BEDSIDE RAILS ARE UP X2. BED IS LOCKED AND LOWERED. CALL LIGHT IS WITHIN REACH. WILL CONTINUE TO MONITOR.
[2017-10-27 08:00] VITALS: BP 124/77
[2017-10-27 08:00] LABS: CREATININE 0.7 mg/dL (0.6-1.3); MAGNESIUM 1.9 mg/dL (1.8-2.4); PHOSPHORUS 3.7 mg/dL (2.5-4.9)
[2017-10-27] MEDS: FERROUS SULFATE (325 MG) 325 MG/TAB TABLET PO SCH ×2 (08:10→16:48)
[2017-10-27] MEDS: DULOXETINE HCL 30 MG CAPSULE.DR PO SCH (08:10)
[2017-10-27] MEDS: TASIGNA 150 MG PO SCH ×2 (08:16→16:48)
[2017-10-27] MEDS: AMLODIPINE BESYLATE 5 MG TABLET PO SCH (08:16)
[2017-10-27] MEDS: ENOXAPARIN SODIUM 100 MG/ML DISP.SYRIN SQ SCH ×2 (08:20→21:37)
[2017-10-27] MEDS: clonazePAM 0.5 MG TABLET PO PRN (14:29)
[2017-10-27 16:00] VITALS: BP 112/68
--- NOTE | 2017-10-27 19:25 | NUR ---
MS RN OPENING NOTES RECEIVED PATIENT AWAKE, RESTING IN BED, @ RA, NO SOB, NO ACUTE DISTRESS, NO C/O CHEST PAIN OR ANY OTHER PAIN NOTED. A & O X 4. BRP. IV ACCESS TO RAC & LAC, SL, INTACT PATENT. BED IN LOW LOCKED POSITION. CALL LIGHT WITHIN REACH. WILL OBSERVE CLOSELY.
--- NOTE | 2017-10-27 19:31 | NUR ---
MS RN CLOSING NOTES PATIENT IS IN STABLE CONDITION. IN NO APPARENT DISTRESS. BEDSIDE RAILS ARE UP X2. BED IS LOCKED AND LOWERED. WILL ENDORSE CARE TO WRAPPER SORTER NURSE FOR KATHIA.
[2017-10-27 20:00] VITALS: BP 139/81
[2017-10-27] MEDS ORDERED: LEVOFLOXACIN (750 MG) 750 MG TABLET PO SCH (21:00)
[2017-10-27] MEDS: ATORVASTATIN 10 MG TABLET PO SCH (21:35)
[2017-10-27] MEDS: ZOLPIDEM TARTRATE 10 MG TABLET PO PRN (21:42)
--- NOTE | 2017-10-27 21:42 | NUR ---
PRN AMBIEN GIVEN PT ASKED FOR AMBIEN FOR SLEEPLESS NESS, PRN AMBIEN GIVEN, VS WNL. WILL REASSESS FOR EFFECTIVENESS.
--- NOTE | 2017-10-28 02:05 | NUR ---
MS RN NOTES PATIENT SLEEPING COMFORTABLY IN BED, WOKE UP ONCE TO USE THE RESTROOM, WENT BACK TO SLEEP. MONITORING CLOSELY.
--- NOTE | 2017-10-28 06:50 | NUR ---
MS RN OPENING NOTES PATIENT SLEPT INTERMITTENTLY, NO C/O SOB, NECK PAIN OR ACUTE DISTRESS/DISCOMFORT NOTED. A & O X 4, AMBULATORY. IV ACCESS TO RAC & LAC, SL, INTACT PATENT. ALL NEEDS ATTENDED TO & MET. BED IN LOW LOCKED POSITION. CALL LIGHT WITHIN REACH. WILL ENDORSE TO AM RN FOR CONTINUITY OF CARE.
--- NOTE | 2017-10-28 07:45 | NUR ---
RN NOTES RECEIVED PT. PT IS STABLE AND RESTING IN BED, A/OX4. NO S/S OF RESPIRATORY DISTRESS OR SOB. NO C/O PAIN AT THIS TIME. IV ACCESS LOCATED ON RIGHT AC 20G AND LEFT AC 18G BOTH SL. PT APPEARS TO BE ANXIOUS, WILL F/U WITH PRN MEDICATION. SAFETY MEASURES IN PLACE, CALL LIGHT WITHIN REACH. WILL CONTINUE TO MONITOR.
[2017-10-28 08:00] VITALS: BP 132/85
[2017-10-28 08:25] VITALS: BP 132/85
[2017-10-28] MEDS: DULOXETINE HCL 30 MG CAPSULE.DR PO SCH (08:25)
[2017-10-28] MEDS: clonazePAM 0.5 MG TABLET PO PRN (08:25)
[2017-10-28] MEDS: FERROUS SULFATE (325 MG) 325 MG/TAB TABLET PO SCH (08:25)
[2017-10-28] MEDS: AMLODIPINE BESYLATE 5 MG TABLET PO SCH (08:25)
[2017-10-28] MEDS: TASIGNA 150 MG PO SCH (08:26)
[2017-10-28] MEDS: ENOXAPARIN SODIUM 100 MG/ML DISP.SYRIN SQ SCH (08:32)
[2017-10-28] MEDS ORDERED: RIVA10TA PO (09:43)
[2017-10-28] MEDS ORDERED: DULO30CA2 PO (09:43)
[2017-10-28] MEDS ORDERED: LEVO750T21 PO (09:43)
--- NOTE | 2017-10-28 14:52 | NUR ---
DISCHARGE NOTE PT DISCHARGED TO HOME. PT VSS, NO S/S OF SOB OR RESPIRATORY DISTRESS. NO C/O PAIN AT THIS TIME. IV ACCESS REMOVED. EXITCARE AND DISCHARGE PAPERWORK PROVIDED AND EXPLAINED TO PT. PT VERBALIZES UNDERSTANDING OF DOCUMENTATION. DISCHARGE INSTRUCTIONS AND BELONGINGS SHEET SIGNED, COPIED AND PLACED IN CHART. PHOTO TAKEN OF RIGHT KNEE WOUND PRIOR TO DISCHARGE AND PLACED IN CHART. PRESCRIPTION SENT TO [facility]. PHARMACY STATES THAT INSURANCE WILL NOT COVER XARELTO PRESCRIPTION WITHOUT PRIOR AUTHORIZATION, DR. MUNROE NOTIFIED. ID BAND REMOVED FROM PT PRIOR TO D/C. PT LEFT THE HOSPITAL VIA TAXI.
== END 2017-10-28 14:50 | disposition home health service (06) | DRG 871 ==
LOC: ER 17:36 → ICU 20:53 → MED 10-27 05:53 → TELE 10-27 06:30 → MED 10-27 12:26
PROVIDERS: ADMIT Nurse Practitioner Acute Care; ATTEND Nurse Practitioner Acute Care
DX: A41.9 Sepsis, unspecified organism (principal); I26.99 Other pulmonary embolism without acute cor pulmonale; I82.401 Acute embolism and thrombosis of unspecified deep veins of right lower extremity; J90 Pleural effusion, not elsewhere classified; D51.3 Other dietary vitamin B12 deficiency anemia; E87.2 Acidosis; C92.10 Chronic myeloid leukemia, BCR/ABL-positive, not having achieved remission; E87.1 Hypo-osmolality and hyponatremia; D52.9 Folate deficiency anemia, unspecified; J98.11 Atelectasis; F31.30 Bipolar disorder, current episode depressed, mild or moderate severity, unspecified; D50.9 Iron deficiency anemia, unspecified; E87.6 Hypokalemia; F17.210 Nicotine dependence, cigarettes, uncomplicated; I10 Essential (primary) hypertension; E78.5 Hyperlipidemia, unspecified; I25.10 Atherosclerotic heart disease of native coronary artery without angina pectoris; D63.8 Anemia in other chronic diseases classified elsewhere; Y90.9 Presence of alcohol in blood, level not specified; T45.1X5A Adverse effect of antineoplastic and immunosuppressive drugs, initial encounter; Y92.009 Unspecified place in unspecified non-institutional (private) residence as the place of occurrence of the external cause; Z79.899 Other long term (current) drug therapy; F20.9 Schizophrenia, unspecified; F10.20 Alcohol dependence, uncomplicated; J44.9 Chronic obstructive pulmonary disease, unspecified
CPT/HCPCS: 36415; 71010-TC; 80048-TC; 80061-TC; 80076-TC; 81000-TC; 83605-TC; 83735-TC; 84100-TC; 84443-TC; 84484-TC; 85025-TC; 85730-TC; 87040-TC; 87081-TC; 93307-TC; 93970-TC; A4216; A4606; J1650; J1956; J3370; J7030; J7050; J7060; Q9967

== ENCOUNTER → 2017-10-24 | Emergency (ER) | payer MEDICARE, MEDICAID ==
[~2017-10-24] MED LIST changes: +AMLO5TAB2 PO; +AMOX250C PO; +ASPI-1169 PO; +ATOR10TA PO; -BISO1TAB7 PO; -CYAN500T4 PO; -DIPH50CA4 PO; +DULO30CA2 PO; -ERGO500047 PO; +FERR-58 PO; +FERR325T28 PO; -FURO-144 PO; +LEVO750T21 PO; +RIVA10TA PO; -ZIPR40CA2 PO; -[UNRECOGNIZED DRUG - CODE] PO
--- NOTE | 2017-10-24 13:40 | NUR ---
PT REFUSED TO BE SEEN AT THIS TIME. PT STATES THAT HE WILL GO TO HIS APPOINTMENT DR. MUNROE AND COME AFTER
== END | disposition left against medical advice (07) ==
LOC: ER 13:39
DX: Z53.21 Procedure and treatment not carried out due to patient leaving prior to being seen by health care provider (principal)

== ENCOUNTER 2018-01-23 13:55 | Outpatient (CLI) | payer MEDICARE, MEDICAID ==
[~2018-01-23 13:55] MED LIST changes: -AMOX250C PO; -ASPI-1169 PO; +DULO30CA2 PO; +FERR325T23 PO; -FERR325T28 PO; +LEVO750T21 PO; +RIVA10TA PO
== END 2018-01-23 23:59 | disposition home or self-care (01) ==
LOC: WOU 13:55
PROVIDERS: ATTEND Surgery
DX: L72.3 Sebaceous cyst (principal); I10 Essential (primary) hypertension; C92.10 Chronic myeloid leukemia, BCR/ABL-positive, not having achieved remission; Z92.21 Personal history of antineoplastic chemotherapy
CPT/HCPCS: G0463

== ENCOUNTER 2018-03-17 10:57 | Inpatient (IN) | payer MEDICARE, OTHER ==
[~2018-03-17] VITALS: Ht 182.9 cm; Wt 103.0 kg
[~2018-03-17 10:57] MED LIST changes: -AMLO5TAB2 PO; +AMLO5TAB7 PO
--- NOTE | 2018-03-17 10:57 | NUR ---
EASY FATIGABILITY X 2 WEEKS,WORSE X 2 DAYS. PLACED ON MONITOR.AWAITING MD ORDER
[2018-03-17 11:45] LABS: BASOPHILS # (AUTO) 0.2 /CMM (0.0-0.2); BASOPHILS % (AUTO) 2.3 % (0.0-2.0); EOSINOPHILS % (AUTO) 1.6 % (0.0-6.0); HEMATOCRIT 27 % (39-51); HEMOGLOBIN 8.6 g/dL (13.5-17.5); LYMPHOCYTES % (AUTO) 10.7 % (20.0-44.0); MEAN CORPUSCULAR HGB CONC 32 g/dl (31.0-36.0); MEAN CORPUSCULAR VOLUME 82 fL (80-96); MONOCYTES # (AUTO) 1.1 /CMM (0.1-1.30); MONOCYTES % (AUTO) 11.7 % (2.0-12.0); NEUTROPHILS # (AUTO) 6.9 /CMM (1.8-8.9); NEUTROPHILS % (AUTO) 73.7 % (43.0-81.0); PLATELET COUNT (AUTO) 565 /CMM (150-450); RDW COEFFICIENT OF VARIATION 15.5 (11.5-15.0); RED BLOOD CELL COUNT(AUTO) 3.26 MIL/uL (4.5-6.0); WHITE BLOOD COUNT (AUTO) 9.4 K/uL (4.3-11.0)
[2018-03-17 11:54] LABS: CALCIUM, SERUM 9.3 mg/dL (8.5-10.1); CARBON DIOXIDE 26 mmol/L (21-32); CHLORIDE 98 mmol/L (98-107); GLUCOSE 104 mg/dL (74-106); POTASSIUM 4.8 mmol/L (3.5-5.1); SODIUM SERUM 132 mmol/L (136-145); UREA NITROGEN, BLOOD 11 mg/dL (7-18)
[2018-03-17 12:06] LABS: ALANINE AMINOTRANSFERASE 77 U/L (12-78); ALBUMIN 2.6 g/dL (3.4-5.0); ALKALINE PHOSPHATASE 151 U/L (46-116); ASPARTATE AMINOTRANSFERASE 37 U/L (15-37); BILIRUBIN,TOTAL 0.9 mg/dL (0.2-1.0); TOTAL PROTEIN, SERUM 7.9 g/dL (6.4-8.2)
[2018-03-17 12:11] LABS: TROPONIN I < 0.017 ng/mL (0.00-0.056)
[2018-03-17 12:17] LABS: INR 1.49 (0.85-1.15)
--- NOTE | 2018-03-17 12:20 | NUR ---
CALLED NURSING SUP. FOR TELE BED
--- NOTE | 2018-03-17 12:38 | NUR ---
DEANNA PAGED, ANGIE TERRAZAS FOAM TANK LAMINATOR
--- NOTE | 2018-03-17 12:49 | NUR ---
TELE 113-2 FOR PLEURAL EFFUSION, ANGIE TERRAZAS ADMITTING
--- NOTE | 2018-03-17 13:34 | NUR ---
GAVE REPORT TO SALMA FOR TELE ROOM 113 RIGHT PLEURAL EFFUSION ADMITITNG ANGIE TERRAZAS TRANSFER VIA ACLS PROTOCOL
--- NOTE | 2018-03-17 13:50 | NUR ---
SYSTEMS TRAINER OPENING NOTES RECEIVED PATIENT FROM ER IN STABLE CONDITION. IN NO APPARENT DISTRESS. BEDSIDE RAILS ARE UPX2. BED IS LOCKED AND LOWERED. CALL LIGHT IS WITHIN REACH. WILL CONTINUE TO MONITOR.
[2018-03-17] MEDS ORDERED: MAGNESIUM HYDROXIDE 30 ML UDC PO PRN (15:00)
[2018-03-17] MEDS ORDERED: MAG HYDROX/AL HYDROX/SIMETH 30 ML UDC PO PRN (15:00)
[2018-03-17] MEDS ORDERED: ONDANSETRON HCL/PF 4 MG/2 ML VIAL IVP PRN (15:00)
[2018-03-17] MEDS ORDERED: Z GUARD REMEDY 2 OZ OINT TP PRN (15:00)
[2018-03-17] MEDS ORDERED: LIDOCAINE HCL/PF 1% 30 ML SDV ONE (15:40)
--- NOTE | 2018-03-17 16:05 | NUR ---
REGARDING U/S GUIDED THORACENTESIS, SPOKE TO RN SALMA AND HE SAID PATIENT WAS ON BLOOD THINNER XARELTO (20 MG) AT 9 AM THIS MORNING. PATIENT HAS NOT SIGNED CONSENT. WILL CHECK BACK TOMORROW AND CONFIRM IF SAFE TO DO PROCEDURE WITH RADIOLOGIST
[2018-03-17] MEDS: FERROUS SULFATE (325 MG) 325 MG/TAB TABLET PO SCH (18:00)
--- NOTE | 2018-03-17 18:33 | NUR ---
ENVIRONMENTAL ANALYST CLOSING NOTES PATIENT IN STABLE CONDITION. IN NO APPARENT DISTRESS. BEDSIDE RAILS ARE UPX2. BED IS LOCKED AND LOWERED. IV LINE IS INTACT AND PATENT. ALL NEEDS WERE MET. CALL LIGHT IS WITHIN REACH. WILL ENDORSE CARE TO OIL WELL PERFORATOR OPERATOR NURSE FOR KATHIA.
[2018-03-17 20:00] VITALS: BP 145/83
--- NOTE | 2018-03-17 20:00 | NUR ---
[facility] RN NOTES RECEVED BEDSIDE REPORT FROM AM NURSE. PATIENT IS IN BED, IN STABLE CONDITION, NO APPARENT DISTRESS , NO SOB NOTED AT THIS TIME WITH OXYGENATION LEVEL OF 96% AT RA, V/S WNL, SR IN ENGINEER OPERATIONS AND MAINTENANCE.SAFETY MEASURES ARE IMPLEMENTED, BEDSIDE RAILS ARE UPX2. BED IS LOCKED AND LOWEST POSITION. IV LINE IS NOTED RAC, INTACT AND PATENT. ALL NEEDS WERE MET AT THIS TIME. CALL LIGHT IS WITHIN REACH. WILL CONT MONITORING.
[2018-03-17 20:13] VITALS: BP 145/83
[2018-03-17] MEDS: ZOLPIDEM TARTRATE 10 MG TABLET PO PRN (21:33)
--- NOTE | 2018-03-17 22:10 | NUR ---
BUTCH RN NOTES PATIENT COMPLAINS OF SOB. THE HOB ELEVATED AT 90 DEGREE ANGLE, 2L O2 VIA NC IS STARTED, SATURATION LEVEL IS 97% , RR 26. RT IS NOTIFIED.
[2018-03-17] MEDS: ATORVASTATIN 10 MG TABLET PO SCH (22:54)
[2018-03-18] VITALS: BP 95/55
--- NOTE | 2018-03-18 03:40 | NUR ---
[facility] RN NOTES Patient's right hand 20 G IV line was pulled out by patient. Patient is refusing new IV line starting at this time. Will try later again.
[2018-03-18 04:00] VITALS: BP 128/53
[2018-03-18 06:00] VITALS: BP 96/57
--- NOTE | 2018-03-18 06:02 | NUR ---
[facility] RN NOTES PATIENT HAS BEEN TRANSFERRED TO [facility]. PATIENT IS STABLE, IS A/O X4. NO ACUTE CHANGES NOTED, NO SOB AT THIS TIME, VITAL SIGNS ARE WNL. BEDSIDE REPORT IS GIVEN TO [address] [place] REBECCA RHODES FOR CONTINUATION OF PT CARE.
--- NOTE | 2018-03-18 06:10 | NUR ---
SOFTWARE SALES EXECUTIVE NOTE: RECEIVED PATIENT FROM [facility], RECEIVED REPORT FROM REBECCA MARR. PATIENT RESTING IN BED, NO ACUTE DISTRESS NOTED. BREATHING EVEN AND UNLABORED, NO SOB NOTED. PATIENT REFUSED NEW IV. BED LOCKED AND IN LOWEST POSITION, CALL LIGHT IN REACH. WILL CONTINUE TO MONITOR. WILL ENDORSE TO DAY SHIFT TO CONTINUE WITH PLAN OF CARE.
[2018-03-18 07:06] LABS: BASOPHILS # (AUTO) 0.1 /CMM (0.0-0.2); BASOPHILS % (AUTO) 0.8 % (0.0-2.0); EOSINOPHILS % (AUTO) 3.4 % (0.0-6.0); HEMATOCRIT 24 % (39-51); HEMOGLOBIN 7.6 g/dL (13.5-17.5); LYMPHOCYTES # (AUTO) 1.3 /CMM (0.8-4.8); MEAN CORPUSCULAR HGB CONC 32 g/dl (31.0-36.0); MEAN CORPUSCULAR VOLUME 84 fL (80-96); MONOCYTES % (AUTO) 12.1 % (2.0-12.0); NEUTROPHILS # (AUTO) 5.8 /CMM (1.8-8.9); NEUTROPHILS % (AUTO) 68.7 % (43.0-81.0); PLATELET COUNT (AUTO) 537 /CMM (150-450); RDW COEFFICIENT OF VARIATION 16.4 (11.5-15.0); RED BLOOD CELL COUNT(AUTO) 2.84 MIL/uL (4.5-6.0); WHITE BLOOD COUNT (AUTO) 8.5 K/uL (4.3-11.0)
[2018-03-18 07:16] LABS: CALCIUM, SERUM 8.9 mg/dL (8.5-10.1); CREATININE 0.9 mg/dL (0.6-1.3); MAGNESIUM 2.3 mg/dL (1.8-2.4); PHOSPHORUS 3.7 mg/dL (2.5-4.9); POTASSIUM 4.3 mmol/L (3.5-5.1)
--- NOTE | 2018-03-18 07:39 | NUR ---
MANAGER OFFICE OPENING NOTE RECEIVED BEDSIDE REPORT ON THE PATIENT. PATIENT IS A/O X4. ASLEEP, EASILY AWAKEN IN BED. BED IS LOCKED IN LOWEST POSITION, SIDE RAILS UP X2. PATIENT IS AMBULATORY AND ORIENTED TO OWN ABILITIES. PATIENT CURRENTLY DOES NOT HAVE AN IV ACCESS. REFUSES IV INSERTION. EXTERNAL MONITOR READING SR WITH BBB AND PVC's 75BPM. .CALL LIGHT WITHIN REACH. EDUCATED TO CALL FOR ASSISTANCE USING THE CALL LIGHT AND VERBALIZED UNDERSTANDING. DENIES PAIN/DISCOMFORT AT THIS TIME. ALL NEEDS ARE MET. CHEST RISING EQUALLY/BILATERALLY. WILL CONTINUE TO ASSESS/MONITOR THROUGHOUT THE SHIFT.
[2018-03-18 08:00] VITALS: BP 101/67
[2018-03-18] MEDS: PANTOPRAZOLE 40 MG TABLET.DR PO SCH (08:15)
[2018-03-18] MEDS: FERROUS SULFATE (325 MG) 325 MG/TAB TABLET PO SCH ×2 (08:18→17:41)
[2018-03-18] MEDS: AMLODIPINE BESYLATE 5 MG TABLET PO SCH (08:20)
--- NOTE | 2018-03-18 08:20 | NUR ---
Patient's BP 101/63 mm Hg. Patient stated " my blood pressure is on the low side, I don't want to take the blood pressure mediation. Amlodipine documented non-administered.
--- NOTE | 2018-03-18 08:44 | NUR ---
DR ANGIE TERRAZAS INFORMED PATIENT DOESN'T HAVE AN IV ACCESS AND REFUSES TO GET ONE. NO ORDERS RECEIVED.
--- NOTE | 2018-03-18 09:23 | NUR ---
RECEIVED ORDER FROM Rich TERRAZAS PATIENT IS OK NOT TO HAVE AN IV ACCESS.
--- NOTE | 2018-03-18 10:20 | NUR ---
THORACENTESIS CANCELLED AT [address] TERRAZAS.
[2018-03-18 12:23] LABS: THYROID STIMULATING HORMONE 1.679 uIU/mL (0.358-3.74)
[2018-03-18] MEDS ORDERED: ALBUTEROL FS 2.5 MG/0.5 ML VIAL.NEB ONE (13:46)
[2018-03-18] MEDS ORDERED: IPRATROPIUM NEB FS 0.5 MG/2.5 ML AMPUL.NEB ONE (13:46)
--- NOTE | 2018-03-18 13:55 | NUR ---
TX GIVEN AT 1355
[2018-03-18] MEDS ORDERED: IPRATROPIUM BROMIDE 14 GM INHALER (or 12.9 GM) IH PRN (14:00)
[2018-03-18] MEDS: ALBUTEROL FS 2.5 MG/0.5 ML VIAL.NEB NEB SCH ×2 (14:00→19:21)
[2018-03-18 16:00] VITALS: BP 103/65
[2018-03-18] MEDS: RIVAROXABAN 10 MG TABLET PO SCH (17:00)
--- NOTE | 2018-03-18 17:50 | NUR ---
RECEIVED TELEPHONE ORDER FROM ANGIE TERRAZAS TO RE-ORDER THORACENTESIS STAT AND HOLD XARELTO AT THIS TIME. READ BACK AND VERIFIED. WILL FOLLOW ORDER RECEIVED.
--- NOTE | 2018-03-18 18:03 | NUR ---
MS RN CLOSING NOTE PATIENT IS A/O X4. AWAKE AND RESPONSIVE IN BED. BED IS LOCKED IN LOWEST POSITION, SIDE RAILS UP X2. PATIENT IS AMBULATORY AND ORIENTED TO OWN ABILITIES. PATIENT CURRENTLY DOES NOT HAVE AN IV ACCESS. REFUSES IV INSERTION. DR ANGIE TERRAZAS IS AWARE. ORDER RECEIVED TO NOT INSERT AN IV AT THIS TIME. CALL LIGHT WITHIN REACH. EDUCATED TO CALL FOR ASSISTANCE USING THE CALL LIGHT AND VERBALIZED UNDERSTANDING. DENIES PAIN/DISCOMFORT AT THIS TIME. ALL NEEDS ARE MET. CHEST RISING EQUALLY/BILATERALLY. WILL ENDORSE TO THE CURRICULUM DIRECTOR NURSE FOR KATHIA.
--- NOTE | 2018-03-18 19:20 | NUR ---
MS RN OPENING NOTES: RECEIVED PT IN BED AND IS AWAKE AND TRYING TO GET COMFORTABLE IN BED. PT HAS NO IV ACCESS AT THIS TIME. MD IS AWARE. PT ON ROOM AIR AND TOLERATING WELL. CALL LIGHT WITHIN PT'S REACH. BED KEPT IN LOW, LOCKED POSITION, AND SIDE RAILS X 2UP. WILL CONTINUE TO MONITOR PT.
[2018-03-18 20:00] VITALS: BP 138/83
--- NOTE | 2018-03-18 20:04 | NUR ---
MS RN NOTES: SPOKE WITH DR. ANIYAH Longo AND INFORMED HIM THAT PER ARTUR WHO SPOKE WITH DR. BRUCE THAT US IS MORE ACCURATE AND EFFUSION IS HIGHLY LOCULATED AND CANNOT BE TAPPED FOR REDUCTION. ONLY A SMALL AMOUNT OF FLUID WILL COME OUT. DR. ANIYAH Marcus. AWARE.
--- NOTE | 2018-03-18 20:39 | NUR ---
MS RN NOTES: PT WAS ADMINISTERED MOM ALONG WITH PRUNE JUICE PT IS COMPLAINING OF CONSTIPATION.
[2018-03-18] MEDS: ATORVASTATIN 10 MG TABLET PO SCH (21:11)
[2018-03-18] MEDS: ZOLPIDEM TARTRATE 10 MG TABLET PO PRN (21:11)
--- NOTE | 2018-03-18 21:14 | NUR ---
MS RN NOTES: PT REQUESTED FOR SLEEPING PILL. PT WAS ADMINISTERED AMBIEN 10MG PO. WILL CONTINUE TO MONITOR PT.
[2018-03-19] MEDS: ALBUTEROL FS 2.5 MG/0.5 ML VIAL.NEB NEB SCH ×4 (01:12→19:55)
[2018-03-19] MEDS: IPRATROPIUM NEB FS 0.5 MG/2.5 ML AMPUL.NEB NEB PRN (03:36)
[2018-03-19 06:21] LABS: BASOPHILS % (AUTO) 0.4 % (0.0-2.0); EOSINOPHILS % (AUTO) 2.5 % (0.0-6.0); HEMATOCRIT 26 % (39-51); HEMOGLOBIN 8.2 g/dL (13.5-17.5); LYMPHOCYTES % (AUTO) 12.4 % (20.0-44.0); MEAN CORPUSCULAR HGB CONC 32 g/dl (31.0-36.0); MEAN CORPUSCULAR VOLUME 84 fL (80-96); MONOCYTES # (AUTO) 1.1 /CMM (0.1-1.30); MONOCYTES % (AUTO) 12.6 % (2.0-12.0); NEUTROPHILS # (AUTO) 6.1 /CMM (1.8-8.9); NEUTROPHILS % (AUTO) 72.1 % (43.0-81.0); PLATELET COUNT (AUTO) 552 /CMM (150-450); RDW COEFFICIENT OF VARIATION 16.3 (11.5-15.0); RED BLOOD CELL COUNT(AUTO) 3.05 MIL/uL (4.5-6.0); WHITE BLOOD COUNT (AUTO) 8.5 K/uL (4.3-11.0)
--- NOTE | 2018-03-19 06:21 | NUR ---
MS RN CLOSING NOTES: ALL NEEDS WERE ATTENDED AND ANTICIPATED FOR. PT ON ROOM AIR AND TOLERATING WELL. PT ASLEEP AT THIS TIME. NO S/S OF DISTRESS. CALL LIGHT WITHIN PT'S REACH. BED KEPT IN LOW, LOCKED POSITION, AND SIDE RAILS X 2UP. WILL ENDORSE TO AM NURSE FOR KATHIA.
--- NOTE | 2018-03-19 06:51 | NUR ---
ON Tuesday03/18/2018, FOR US GUIDED THORACENTESIS AT [address] MENCHACA. HE SAID THAT" BECAUSE THE ORDER WAS NOT STAT, WE COULD WAIT UNTIL TUESDAY UNLESS ORDERING PHYSICIAN CHANGE THE ORDER TO STAT".THEN I TALKED TO DR TERRAZAS.HE ORDERED A PLEURAL EFFUSION ULTRASOUND & SAID IF RESULT WAS POSITIVE , HE WOULD CHANGE THE ORDER TO STAT. AFTER THE EXAM , DR TERRAZAS CANCELLED THE ORDER AT 1000 AM ON 03/18/2018. LINDA FERNANDEZ IS AWARE. AROUND 1830 ON Tuesday03/18/2018, I GOT A CALL FOR US GUIDED THORACENTESIS. AT THIS TIME NIKA MONROE - THE RADIOLOGIST- LOOK AT THE ULTRASOUND IMAGES OF PLEURAL EFFUSION AND SAID;" BECAUSE EFFUSION IS HIGHLY LOCULATED, CANNOT BE TAPPED FOR REDUCTION. ONLY A SMALL AMOUNT OF FLUID WILL COME OUT. " THEN HE SAID TO GIVE HIS NUMBER TO ORDERING PHYSICIAN IN CASE IF THEY WANTED TO TALK TO HIM. ALSO HE SAID ;" I ALSO PUT AN ADDENDUM ON THE CT REPORT TO SHOW THE LOCULATIONS". TORRI FERNANDEZ IS AWARE OF THIS CONVERSATION .
[2018-03-19 08:00] VITALS: BP 97/54
--- NOTE | 2018-03-19 08:00 | NUR ---
MS RN NOTES PATIENT IN BED RESTING ALERT, ORIENTED X3. NO SOB OR ACUTE DISTRESS NOTED. PATIENT WITH NO PERIPHERAL IV MD AWARE. BED IN LOW LOCKED POSITION. CALL LIGHT WITHIN REACH. WILL CONTINUE TO MONITOR.
[2018-03-19] MEDS: PANTOPRAZOLE 40 MG TABLET.DR PO SCH (08:14)
[2018-03-19] MEDS: FERROUS SULFATE (325 MG) 325 MG/TAB TABLET PO SCH ×2 (08:14→17:31)
[2018-03-19] MEDS: AMLODIPINE BESYLATE 5 MG TABLET PO SCH (08:14)
[2018-03-19 08:15] VITALS: BP 97/54
[2018-03-19 10:13] LABS: IMMUNOGLOBULIN A, SERUM 169 mg/dL (61-437); IMMUNOGLOBULIN G, SERUM 832 mg/dL (700-1600); IMMUNOGLOBULIN M, SERUM 43 mg/dL (20-172)
[2018-03-19 13:18] LABS: OCCULT BLOOD STOOL NEGATIVE (NEGATIVE)
[2018-03-19] MEDS: MAGNESIUM HYDROXIDE 30 ML UDC PO PRN (13:22)
--- NOTE | 2018-03-19 13:22 | NUR ---
MS RN NOTES PATIENT COMPLAINED OF CONSTIPATION ALTHOUGH HE HAD A BM THIS MORNING. ADMINISTERED MILK OF MAG. NEEDED. WILL CONTINUE TO MONITOR.
[2018-03-19 16:00] VITALS: BP 141/79
[2018-03-19] MEDS: RIVAROXABAN 10 MG TABLET PO SCH (17:00)
--- NOTE | 2018-03-19 19:05 | NUR ---
MS RN OPENING NOTES: RECEIVED PT AND IS BED WATCHING TELEVISION. PT IS A/OX4.NO IV ACESS NOTED AT THIS TIME. MD AWARE. NO S/S OF DISTRESS NOTED. CALL LIGHT WITHIN PT'S REACH. BED KEPT IN LOW, LOCKED POSITION, AND SIDE RAILS X 2 UP. WILL CONTINUE TO MONITOR PT.
--- NOTE | 2018-03-19 19:30 | NUR ---
MS RN NOTES PATIENT IN BED RESTING NO SOB OR ACUTE DISTRESS NOTED. PATIENT ALERT, ORIENTED X3 ALL DUE MEDICATIONS ADMINISTERED. ALL NEEDS MET. ENDORSED CARE TO PM SHIFT.
[2018-03-19 20:00] VITALS: BP 146/83
[2018-03-19 20:20] VITALS: BP 146/83
[2018-03-19] MEDS: ATORVASTATIN 10 MG TABLET PO SCH (21:17)
[2018-03-19] MEDS: TAMSULOSIN 0.4 MG CAP.SR.24H PO SCH (21:17)
--- NOTE | 2018-03-19 22:24 | NUR ---
MS RN NOTES: DR. ANIYAH Longo ON FLOOR. INFORMED HIM THAT PT'S BP IS TRENDING UP. NORVASC 5MG WAS HELD THIS AM. PER ANIYAH MONROE, OK TO GIVE NORVASC 5MG PO. WILL CONTINUE TO MONITOR PT.
[2018-03-19 22:26] VITALS: BP 151/86
[2018-03-19] MEDS ORDERED: AMLODIPINE BESYLATE 5 MG TABLET PO ONE (22:30)
[2018-03-19] MEDS: ZOLPIDEM TARTRATE 10 MG TABLET PO PRN (22:58)
[2018-03-20] MEDS: ALBUTEROL FS 2.5 MG/0.5 ML VIAL.NEB NEB SCH ×4 (01:30→19:44)
[2018-03-20 06:46] LABS: BASOPHILS % (AUTO) 0.5 % (0.0-2.0); EOSINOPHILS % (AUTO) 3.2 % (0.0-6.0); HEMATOCRIT 26 % (39-51); HEMOGLOBIN 8.5 g/dL (13.5-17.5); LYMPHOCYTES # (AUTO) 1.1 /CMM (0.8-4.8); LYMPHOCYTES % (AUTO) 12.8 % (20.0-44.0); MEAN CORPUSCULAR HGB CONC 33 g/dl (31.0-36.0); MEAN CORPUSCULAR VOLUME 83 fL (80-96); MONOCYTES # (AUTO) 0.8 /CMM (0.1-1.30); MONOCYTES % (AUTO) 9.9 % (2.0-12.0); NEUTROPHILS # (AUTO) 6.1 /CMM (1.8-8.9); NEUTROPHILS % (AUTO) 73.6 % (43.0-81.0); PLATELET COUNT (AUTO) 523 /CMM (150-450); RDW COEFFICIENT OF VARIATION 16.3 (11.5-15.0); RED BLOOD CELL COUNT(AUTO) 3.15 MIL/uL (4.5-6.0); WHITE BLOOD COUNT (AUTO) 8.3 K/uL (4.3-11.0)
--- NOTE | 2018-03-20 06:48 | NUR ---
MS RN CLOSING NOTES: ALL NEEDS WERE ATTENDED AND ANTICIPATED FOR. PT ASLEEP AT THIS TIME. NO IV ACCESS NOTED PT REFUSED AND MD IS AWARE. CALL LIGHT WITHIN PT'S REACH. BED KEPT IN LOW, LOCKED POSITION, AND SIDE RAILS X 2UP. WILL ENDORSE TO AM NURSE FOR KATHIA.
[2018-03-20 07:03] LABS: CALCIUM, SERUM 8.7 mg/dL (8.5-10.1); CREATININE 0.8 mg/dL (0.6-1.3); MAGNESIUM 2.6 mg/dL (1.8-2.4); PHOSPHORUS 3.7 mg/dL (2.5-4.9); POTASSIUM 4.4 mmol/L (3.5-5.1)
--- NOTE | 2018-03-20 07:19 | NUR ---
MS RN OPENING NOTES RECEIVED PT FROM NIGHTSHIFT NURSE IN STABLE CONDITION. PT IS A/O X3. NO SOB OR SIGNS OF DISTRESS NOTED. BREATHING IS EVEN AND UNLABORED. PT ON RA AND SATING WELL @ 100%. NO IV NOTED. MD AWARE. BED IN LOW LOCKED POSITION, SIDE RAILS UP X2, CALL LIGHT WITHIN REACH. WILL CONTINUE TO MONITOR
[2018-03-20 08:00] VITALS: BP 114/71
[2018-03-20] MEDS: FERROUS SULFATE (325 MG) 325 MG/TAB TABLET PO SCH ×2 (09:35→17:38)
[2018-03-20] MEDS: PANTOPRAZOLE 40 MG TABLET.DR PO SCH (09:35)
[2018-03-20] MEDS: AMLODIPINE BESYLATE 5 MG TABLET PO SCH (09:35)
--- NOTE | 2018-03-20 09:59 | NUR ---
MS RN NOTES: THORACENTESIS RADIOLOGIST WAS CALLED IN REGARDS TO THORACENTESIS PROCEDURE. PER RADIOLOGIST, "THE PROCEDURE WAS CANCELLED BY THE MD BECAUSE THE PT DOES NOT HAVE A BIG ENOUGH POCKET TO EXTRACT FLUIDS". DR TERRAZAS WAS MADE AWARE AND STATED THAT THE "PT'S CAT SCAN SHOWED A BIG ENOUGH POCKET" AND PROCEED WITH THE PROCEDURE. WILL REORDER AND MAKE RADIOLOGIST AWARE
[2018-03-20] MEDS: MAGNESIUM HYDROXIDE 30 ML UDC PO PRN (10:07)
[2018-03-20 11:12] LABS: *SPE A/G RATIO 0.7 (0.7-1.7); *SPE ALBUMIN 2.4 g/dL (2.9-4.4); *SPE ALPHA-1-GLOBULIN 0.5 g/dL (0.0-0.4); *SPE ALPHA-2-GLOBULIN 1.3 g/dL (0.4-1.0); *SPE GLOBULIN, TOTAL 3.6 g/dL (2.2-3.9); *SPE M-SPIKE Not Observed g/dL (Not Observed); *SPEGAMMA GLOBULIN 0.8 g/dL (0.4-1.8)
--- NOTE | 2018-03-20 11:28 | NUR ---
TWO UNSUCCESSFUL ATTEMPTS TO REACH RN IN REGARDS TO US GUIDED THORACENTESIS
--- NOTE | 2018-03-20 11:36 | NUR ---
MS RN NOTES: THORACENTESIS F/U AN ORDER WAS PLACED FOR A US GUIDED THORACENTESIS PER DR. TERRAZAS'S ORDER. RADIOLOGIST WAS INFORMED AND STATED THAT SHE WILL BE UP BY 1300
[2018-03-20] MEDS: IPRATROPIUM NEB FS 0.5 MG/2.5 ML AMPUL.NEB NEB PRN (12:23)
[2018-03-20 13:38] LABS: INR 0.97 (0.87-1.13)
--- NOTE | 2018-03-20 14:04 | NUR ---
MS RN NOTES: RADIOLOGIST IN ROOM FOR THORACENTESIS. PT STABLE
--- NOTE | 2018-03-20 14:13 | NUR ---
MS RN NOTES: S/P THORACENTESIS PT STABLE POST THORACENTESIS. BREATHING REMAINS EVEN AND UNLABORED. STAT CXR ORDERED. SAMPLE SENT TO LAB
[2018-03-20 16:00] VITALS: BP 131/74
--- NOTE | 2018-03-20 17:31 | NUR ---
MS RN NOTES: XARELTO PER DR. TERRAZAS, RESTART PT'S HOME
[2018-03-20] MEDS: RIVAROXABAN 10 MG TABLET PO SCH (17:39)
--- NOTE | 2018-03-20 19:14 | NUR ---
MS RN OPENING NOTES: RECEIVED PT AND IS IN BED AND IS A/OX4. PT IS SITTING UP IN BED AND IS WATCHING TELEVISION. NO IV NOTED. NO S/S OF DISTRESS NOTED AT THIS TIME. CALL LIGHT WITHIN PT'S REACH. BED KEPT IN LOW, LOCKED POSITION, AND SIDE RAILS X 2UP. WILL CONTINUE TO MONITOR PT.
--- NOTE | 2018-03-20 19:27 | NUR ---
MS RN CLOSING NOTES PT REMAINS STABLE, AL NEEDS WERE MET DURING SHIFT AND ORDERS CARRIED OUT ACCORDINGLY. ALL DUE MEDS GIVEN. BREATHING REMAINS EVEN AND UNLABORED S/P THORACENTESIS. VITALS STABLE THROUGHOUT SHIFT. WILL ENDORSE TO NIGHTSHIFT NURSE FOR KATHIA
--- NOTE | 2018-03-20 19:30 | NUR ---
MS RN NOTES: DR. MUNROE AT BEDSIDE.
[2018-03-20 20:00] VITALS: BP 140/86
[2018-03-20 20:02] VITALS: BP 140/86
[2018-03-20] MEDS: TAMSULOSIN 0.4 MG CAP.SR.24H PO SCH (21:06)
[2018-03-20] MEDS: ATORVASTATIN 10 MG TABLET PO SCH (21:06)
[2018-03-20] MEDS: ZOLPIDEM TARTRATE 10 MG TABLET PO PRN (21:46)
--- NOTE | 2018-03-20 21:48 | NUR ---
MS RN NOTES: PT REQUESTING FOR SLEEPING PILL. PT WAS ADMINISTERED AMBIEN 10MG PO. WILL CONTINUE TO MONITOR PT.
[2018-03-21] MEDS: ALBUTEROL FS 2.5 MG/0.5 ML VIAL.NEB NEB SCH ×4 (01:30→19:46)
--- NOTE | 2018-03-21 06:25 | NUR ---
MS RN CLOSING NOTES: ALL NEEDS WERE ATTENDED AND ANTICIPATED FOR. PT HAS NO IV ACCESS NOTED AT THIS TIME. PT ASLEEP AT THIS TIME. CALL LIGHT WITHIN PT'S REACH. BED KEPT IN LOW, LOCKED POSITION, AND SIDE RAILS X 2UP. WILL ENDORSE TO AM NURSE FOR KATHIA.
--- NOTE | 2018-03-21 07:15 | NUR ---
ms rn initial notes Received patient in bed, asleep, head of bed elevated, no SOB or distress noted, alert and oriented x 4, verbally responsive and able to make needs known as endorsed by retail shift manager RN. No IV access as endorsed by retail shift manager RN. No facial grimace noted. Call light with in patient reach, will continue to monitor accordingly.
[2018-03-21 08:00] VITALS: BP 123/74
[2018-03-21] MEDS: PANTOPRAZOLE 40 MG TABLET.DR PO SCH (08:24)
[2018-03-21] MEDS: FERROUS SULFATE (325 MG) 325 MG/TAB TABLET PO SCH ×2 (08:24→16:18)
[2018-03-21] MEDS: AMLODIPINE BESYLATE 5 MG TABLET PO SCH (08:24)
[2018-03-21 16:00] VITALS: BP 119/66
[2018-03-21] MEDS: RIVAROXABAN 10 MG TABLET PO SCH (16:17)
[2018-03-21] MEDS: DOCUSATE SODIUM 100 MG CAPSULE PO SCH (16:17)
--- NOTE | 2018-03-21 19:21 | NUR ---
ms rn closing notes All needs provided, attended, and anticipated, patient is in stable condition at this time. Endorsed to next shift rn to continue care. Call light with in patient reach.
--- NOTE | 2018-03-21 19:25 | NUR ---
MS RN OPENING NOTES: RECEIVED PT IN BED AND IS TALKING ON THE PHONE RIGHT NOW. PT IS A/OX4. PT IS ON ROOM AIR AND TOLERATING WELL. NO IV NOTED AT THIS TIME PT IS REFUSING. EXPLAINED TO PT THAT HE HAS A PROCEDURE TOMORROW AND TO BE NPO POST MIDNIGHT. CALL LIGHT WITHIN PT'S REACH. BED KEPT IN LOW, LOCKED POSITION, AND SIDE RAILS X 2UP. WILL CONTINUE TO MONITOR PT.
[2018-03-21] MEDS: IPRATROPIUM NEB FS 0.5 MG/2.5 ML AMPUL.NEB NEB PRN (19:46)
[2018-03-21 20:00] VITALS: BP 129/76
[2018-03-21] MEDS: TAMSULOSIN 0.4 MG CAP.SR.24H PO SCH (21:19)
[2018-03-21] MEDS: ATORVASTATIN 10 MG TABLET PO SCH (21:19)
[2018-03-21] MEDS: ZOLPIDEM TARTRATE 10 MG TABLET PO PRN (21:21)
--- NOTE | 2018-03-21 21:23 | NUR ---
MS RN NOTES: PT REQUESTED FOR HIS SLEEPING AID HE IS TO FOR A PROCEDURE TOMORROW AND IS TO BE NPO POST MIDNIGHT. PT ADMINISTERED AMBIEN 10MG PO. ALSO OFFERED PT TO START IV; PT IS REFUSING RIGHT NOW AND INFORMED HIM THAT PT NEEDS IT FOR PROCEDURE TOMORROW. PT SAID "IT CAN WAIT FOR TOMORROW" IT IS HARD FOR HIM TO SLEEP WITH IT.
[2018-03-22] MEDS: ALBUTEROL FS 2.5 MG/0.5 ML VIAL.NEB NEB SCH ×4 (00:58→19:30)
[2018-03-22 06:20] LABS: BASOPHILS # (AUTO) 0.1 /CMM (0.0-0.2); BASOPHILS % (AUTO) 0.9 % (0.0-2.0); EOSINOPHILS % (AUTO) 4.4 % (0.0-6.0); HEMATOCRIT 26 % (39-51); HEMOGLOBIN 8.4 g/dL (13.5-17.5); LYMPHOCYTES # (AUTO) 1.3 /CMM (0.8-4.8); LYMPHOCYTES % (AUTO) 16.2 % (20.0-44.0); MEAN CORPUSCULAR HGB CONC 32 g/dl (31.0-36.0); MEAN CORPUSCULAR VOLUME 82 fL (80-96); MONOCYTES % (AUTO) 12.1 % (2.0-12.0); NEUTROPHILS # (AUTO) 5.3 /CMM (1.8-8.9); NEUTROPHILS % (AUTO) 66.4 % (43.0-81.0); PLATELET COUNT (AUTO) 568 /CMM (150-450); RDW COEFFICIENT OF VARIATION 16.2 (11.5-15.0); RED BLOOD CELL COUNT(AUTO) 3.16 MIL/uL (4.5-6.0)
--- NOTE | 2018-03-22 06:44 | NUR ---
MS RN CLOSING NOTES: ALL NEEDS WERE ATTENDED AND ANTICIPATED FOR. PT ASLEEP AT THIS TIME. STILL NO IV ACCESS PT WANTS TO DO IT AT A LATER TIME. PT HAS BEEN NPO SINCE MIDNIGHT PT IS TO GO FOR A PROCEDURE TODAY AT NOON. CALL LIGHT WITHIN PT'S REACH. BED KEPT IN LOW, LOCKED POSITION, AND SIDE RAILS X 2UP. WILL ENDORSE TO AM NURSE FOR KATHIA.
[2018-03-22 07:00] LABS: CALCIUM, SERUM 8.7 mg/dL (8.5-10.1); CREATININE 0.7 mg/dL (0.6-1.3); MAGNESIUM 2.3 mg/dL (1.8-2.4); PHOSPHORUS 4.1 mg/dL (2.5-4.9); POTASSIUM 4.5 mmol/L (3.5-5.1)
[2018-03-22] MEDS: PANTOPRAZOLE 40 MG TABLET.DR PO SCH (07:30)
--- NOTE | 2018-03-22 07:42 | NUR ---
RN OPENING NOTES RECEIVED PT. IN BED A&OX4. BREATHING UNLABORED, AND EVENLY ON ROOM AIR. NO S/S OF ACUTE DISTRESS. PER NURSE PT. WAS REFUSING IV ACCESS LAST NIGHT, BUT AGREED TO HAVE ONE TODAY BEFORE SURGERY. BED IS IN LOWEST, AND LOCKED POSITION. 2 SIDE RAILS UP, AND INSTRUCTED PT. TO USE CALL LIGHT FOR ASSISTANCE. ALL NEEDS MET. WILL CONTINUE TO ASSESS AND MONITOR.
[2018-03-22 08:00] VITALS: BP_SYST 106
[2018-03-22 08:07] VITALS: BP 106/81
[2018-03-22] MEDS: IPRATROPIUM NEB FS 0.5 MG/2.5 ML AMPUL.NEB NEB PRN (08:14)
[2018-03-22] MEDS: AMLODIPINE BESYLATE 5 MG TABLET PO SCH (09:00)
[2018-03-22] MEDS: FERROUS SULFATE (325 MG) 325 MG/TAB TABLET PO SCH ×2 (09:00→16:59)
[2018-03-22] MEDS: DOCUSATE SODIUM 100 MG CAPSULE PO SCH ×2 (09:00→16:59)
--- NOTE | 2018-03-22 11:48 | NUR ---
RN NOTES SURGERY RESCHEDULED FOR Tuesday03/24/18 PER MD. PT. WILL BE NPO AFTER MIDNIGHT STARTING TUESDAY NIGHT 03/23/18. CANCELLED MEDICATION XARELTO PER MD ORDER.
--- NOTE | 2018-03-22 14:00 | NUR ---
RN NOTES PT. PULLED OUT HIS RIGHT HAND GAUGE 20 IV. BLEEDING WAS STOPPED, NO SIGNS OF NEW ACTIVE BLEEDING WAS NOTED. PT. STATED THAT HE "DOESN'T NEED A NEW IV UNTIL SURGERY, AND THE IV IS UNCOMFORTABLE FOR HIM WHILE HE IS SLEEPING." PT. WAS EXPLAINED THE REASON HE NEEDS AN IV WHILE BEING HOSPITALIZED, THE RISKS, AND BENEFITS. PT. VERBALIZED UNDERSTANDING, AND AGREED TO HAVE A NEW IV INSERTED BEFORE SURGERY ON TUESDAY.
[2018-03-22] MEDS: ACETAMINOPHEN 325 MG TABLET PO PRN (15:49)
[2018-03-22 16:00] VITALS: BP 125/85
--- NOTE | 2018-03-22 18:57 | NUR ---
RN CLOSING NOTES PT. IS IN BED A&OX4. BREATHING UNLABORED, AND EVENLY ON ROOM AIR. NO S/S OF ACUTE DISTRESS. PT. REFUSED NEW IV ACCESS BECAUSE IT'S UNCOMFORTABLE TO SLEEP WITH IT AT NIGHT. BED IS IN LOWEST, AND LOCKED POSITION. 2 SIDE RAILS UP, AND INSTRUCTED PT. TO USE CALL LIGHT FOR ASSISTANCE. ALL NEEDS MET. WILL ENDORSE REPORT TO NURSE.
[2018-03-22 20:00] VITALS: BP 120/79
--- NOTE | 2018-03-22 20:05 | NUR ---
RN NOTES RECEIVED NEW ORDERS FORM DR. MUNROE FOR LABS TO BE DONE ON MARCH 24, TUESDAY AM. ALL ORDERS NOTED AND CARRIED OUT.
[2018-03-22] MEDS: ATORVASTATIN 10 MG TABLET PO SCH (21:24)
[2018-03-22] MEDS: ZOLPIDEM TARTRATE 10 MG TABLET PO PRN (21:24)
[2018-03-22] MEDS: TAMSULOSIN 0.4 MG CAP.SR.24H PO SCH (21:24)
--- NOTE | 2018-03-22 21:26 | NUR ---
RN NOTES PATIENT REQUESTED FOR MEDICATION TO HELP HIM SLEEP. ADMINISTERED AMBIEN 5 MG 1TAB PO ORDERED. WILL CONTINUE TO MONITOR PT.
[2018-03-23] MEDS: ALBUTEROL FS 2.5 MG/0.5 ML VIAL.NEB NEB SCH ×4 (01:14→19:43)
--- NOTE | 2018-03-23 06:29 | NUR ---
RN CLOSING NOTES PATIENT ALERT AND ORIENTED X 4, AMBULATORY, SITTING UP IN BED, NO SOB, IN NO ACUTE DISTRESS, DENIES PAIN, IN STABLE CONDITION. ALL PATIENT'S NEEDS ATTENDED TO THROUGHOUT THE SHIFT. PATIENT CONTINUES TO REFUSE TO START AN IV PERIPHERAL LINE BUT AGREES FOR AN IV ACCESS SITE TO BE PLACED BEFORE HIS PROCEDURE. RESPECTED PATIENT'S DECISION. PLACED CALL LIGHT WITHIN EASY REACH. BED IN LOW POSITION AND LOCKED IN PLACE. WILL ENDORSE TO AM SHIFT NURSE FOR CONTINUITY OF CARE.
[2018-03-23] MEDS: PANTOPRAZOLE 40 MG TABLET.DR PO SCH (07:03)
[2018-03-23 07:23] LABS: FREE PSA 0.12 ng/mL (0.00-45); PROSTATE SPECIFIC ANTIGEN SCR 0.95 ng/mL (0.00-4.00)
[2018-03-23 08:00] VITALS: BP 118/78
--- NOTE | 2018-03-23 08:49 | NUR ---
REPORT GIVEN TO NURSE WARD, FOR KATHIA. PT STABLE AT THIS TIME.
--- NOTE | 2018-03-23 09:30 | NUR ---
SANITATION TRUCK DRIVER NOTE Pt lying in bed watching TV aa0 x3; No signs of respiratory distress;
[2018-03-23 11:32] VITALS: BP 120/78
[2018-03-23] MEDS: FERROUS SULFATE (325 MG) 325 MG/TAB TABLET PO SCH ×2 (11:33→19:28)
[2018-03-23] MEDS: AMLODIPINE BESYLATE 5 MG TABLET PO SCH (11:34)
[2018-03-23] MEDS: DOCUSATE SODIUM 100 MG CAPSULE PO SCH ×2 (11:34→19:28)
--- NOTE | 2018-03-23 12:00 | NUR ---
HIGH [employer]CHOOL HVAC R INSTRUCTOR NOTE Patient ambulates independently in hallway and to bathroom; No complaints at this time or questions at this time about surgery on 03/24; Educated patient on effect of ordered medication; Patient was worried about taking xarelto and not being able to get surgery
[2018-03-23 16:00] VITALS: BP 117/74
--- NOTE | 2018-03-23 19:00 | NUR ---
SILK SCREEN OPERATOR NOTE Pt is comfortable and confident about surgery tommorow; Report given to next shift nurse
[2018-03-23] MEDS: MAGNESIUM HYDROXIDE 30 ML UDC PO PRN (19:28)
--- NOTE | 2018-03-23 19:30 | NUR ---
RN OPENING NOTES RECEIVED PATIENT SITTING UP IN BED, ALERT AND ORIENTED X 4, IN NO ACUTE DISTRESS, NO SOB, BREATHING EVEN AND UNLABORED. PATIENT IN STABLE CONDITION, DENIES PAIN. PLACED CALL LIGHT WITHIN EASY REACH. WILL CONTINUE TO MONITOR PATIENT.
[2018-03-23 20:00] VITALS: BP 124/70
[2018-03-23 20:42] VITALS: BP 124/70
[2018-03-23] MEDS: ZOLPIDEM TARTRATE 10 MG TABLET PO PRN (21:39)
[2018-03-23] MEDS: TAMSULOSIN 0.4 MG CAP.SR.24H PO SCH ×2 (21:39→22:00)
[2018-03-23] MEDS: ATORVASTATIN 10 MG TABLET PO SCH (21:39)
--- NOTE | 2018-03-23 22:00 | NUR ---
RN NOTE PATIENT REFUSED TO TAKE HIS FLOMAX. EXPLAINED RISKS AND BENEFITS TO PATIENT BUT PT CONTINUES TO REFUSE MEDICATION AND VERBALIZED THAT HE DOESN'T NEED IT RIGHT NOW. RESPECTED PATIENT'S DECISION. WILL CONTINUE TO MONITOR THIS PATIENT.
[2018-03-24] VITALS (24 sets, daily range): BP systolic 91–162; BP diastolic 54–99
[2018-03-24] MEDS: ALBUTEROL FS 2.5 MG/0.5 ML VIAL.NEB NEB SCH ×4 (01:30→19:45)
--- NOTE | 2018-03-24 06:28 | NUR ---
RN CLOSING NOTES PATIENT IN BED, ASLEEP BUT EASILY AROUSABLE, ALERT AND ORIENTED X 4, IN NO ACUTE DISTRESS, NO SOB NOTED, BREATHING EVEN AND UNLABORED. PATIENT IS SCHEDULED FOR SURGERY TODAY, IV LINE INSERTED ON LEFT FOREARM G20, INTACT AND PATENT. PATIENT TOLERATED PROCEDURE WELL. ALL PATIENT'S NEEDS ATTENDED TO THROUGHOUT THE SHIFT, CALL LIGHT PLACED WITHIN EASY REACH. WILL ENDORSE TO AM SHIFT NURSE FOR CONTINUITY OF CARE.
[2018-03-24 06:48] LABS: BASOPHILS # (AUTO) 0.1 /CMM (0.0-0.2); BASOPHILS % (AUTO) 0.6 % (0.0-2.0); HEMATOCRIT 29 % (39-51); HEMOGLOBIN 9.5 g/dL (13.5-17.5); LYMPHOCYTES # (AUTO) 1.6 /CMM (0.8-4.8); LYMPHOCYTES % (AUTO) 17.6 % (20.0-44.0); MEAN CORPUSCULAR HGB CONC 33 g/dl (31.0-36.0); MEAN CORPUSCULAR VOLUME 81 fL (80-96); MONOCYTES # (AUTO) 0.9 /CMM (0.1-1.30); MONOCYTES % (AUTO) 10.4 % (2.0-12.0); NEUTROPHILS # (AUTO) 6.2 /CMM (1.8-8.9); NEUTROPHILS % (AUTO) 68.4 % (43.0-81.0); PLATELET COUNT (AUTO) 609 /CMM (150-450); RDW COEFFICIENT OF VARIATION 16.1 (11.5-15.0); RED BLOOD CELL COUNT(AUTO) 3.55 MIL/uL (4.5-6.0); WHITE BLOOD COUNT (AUTO) 9.1 K/uL (4.3-11.0)
[2018-03-24] MEDS: PANTOPRAZOLE 40 MG TABLET.DR PO SCH (06:50)
[2018-03-24 06:53] LABS: INR 1.02 (0.87-1.13)
[2018-03-24] MEDS ORDERED: ANESTHESIA TRAY IN PYXIS 1 EA TRAY MC ONE (06:56)
[2018-03-24 07:01] LABS: CALCIUM, SERUM 9.5 mg/dL (8.5-10.1); CREATININE 0.9 mg/dL (0.6-1.3); POTASSIUM 4.3 mmol/L (3.5-5.1)
[2018-03-24] MEDS ORDERED: ROCURONIUM BROMIDE 50 MG/5 ML ONE ×2 (07:22→08:10)
[2018-03-24] MEDS ORDERED: HYDROMORPHONE INJ 2 MG/ML DISP.SYRIN ONE ×2 (07:22→10:35)
--- NOTE | 2018-03-24 07:25 | NUR ---
RN NOTE PATIENT BROUGHT TO OR, ACCOMPANIED BY OR STAFF. LEFT UNIT VIA GURNEY IN STABLE CONDITION. WILL ENDORSE TO AM SHIFT NURSE FOR CONTINUITY OF CARE.
[2018-03-24] MEDS: AMLODIPINE BESYLATE 5 MG TABLET PO SCH (09:00)
[2018-03-24] MEDS: DOCUSATE SODIUM 100 MG CAPSULE PO SCH ×2 (09:00→16:36)
[2018-03-24] MEDS: FERROUS SULFATE (325 MG) 325 MG/TAB TABLET PO SCH ×2 (09:00→16:36)
--- NOTE | 2018-03-24 09:45 | NUR ---
RN NOTES PATIENT WILL GO TO ROOM 264 AFTER SURGERY, REPORT GIVEN TO CHAR FERNANDEZ.
--- NOTE | 2018-03-24 11:25 | NUR ---
FILES SUPERVISOR RECEIVED PT FROM PACU AWAKE AND ALERT. ON O2 AT 10L MASK WITH SPO2 100%. RIGHT ANTERIOR CHEST TUBES X2 INTACT CONNECTED TO CHEST DRAIN WITH CONTINUOUS WALL SUCTION. CHEST DRESSING INTACT. PT DENIES PAIN AT THIS TIME. O2 CHANGED TO 2L NC. Addendum: 03/24/18 at 1132 by MARY JANE JOYCE RN PT POST VATS PROCEDURE TODAY.
[2018-03-24] MEDS ORDERED: KETOROLAC TROMETHAMINE 15 MG/ML VIAL IV PRN (12:00)
[2018-03-24] MEDS ORDERED: ONDANSETRON HCL/PF 4 MG/2 ML VIAL IV PRN (12:00)
[2018-03-24] MEDS: HYDROMORPHONE INJ 2 MG/ML DISP.SYRIN IV PRN ×3 (12:02→21:18)
[2018-03-24] MEDS: IV D5/0.45 NACL W/20 MEQ KCL 1L IV PRN ×2 (12:19)
[2018-03-24] MEDS: HYDROCODONE/APAP 10/325MG 1 EA TABLET PO PRN ×2 (18:52→22:27)
--- NOTE | 2018-03-24 19:30 | NUR ---
RN NOTES: 1230: PATIENT RECEIVED ALERT AWAKE ORIENTED X4. ON 2LPM NC , DENIES BREATHING DIFFICULTY. C/O PAIN ON CHEST TUBES INSERTION SITE. S/P VATS PROCEDURE WITH DECORTICATION DONE BY DR. MELGOZA WITH CHEST TUBE INSERTION DOUBLE TO LATERAL RIGHT CHEST. CHECKED WITH CALEB BEN DAY ARTIST AT BEDSIDE. NO AIR LEAKAGE. DRESSING INTACT. NOTED DRESSING BLOODY UPON ARRIVAL. REINFORCED. NO FURTHER BLEEDING NOTED. 1600: CONTINUE WITH PAIN MANAGEMENT MEDICATION. SAFETY MEASURES OBSERVED. INDEPENDENT WITH BED MOBILITY. D/C STUART CATH AT 1330PM PER PATIENT REQUEST, ORDERED BY DR. ANGIE TERRAZAS. PATIENT VERBALIZE THAT HE URINATE ALREADY AFTER THAT, INSTRUCT HIM TO CALL NURSE OR USE URINAL AT BEDSIDE. CALL LIGHT WITHIN REACH. WILL CONTINUE TO MONITOR. SAFETY MEASURES OBSERVED. 1919: REPORT GIVEN TO NIGHT RN AT BEDSIDE FOR CONTINUITY OF CARE.
[2018-03-24] MEDS: TAMSULOSIN 0.4 MG CAP.SR.24H PO SCH (21:17)
[2018-03-24] MEDS: ATORVASTATIN 10 MG TABLET PO SCH (21:18)
[2018-03-24] MEDS: ZOLPIDEM TARTRATE 10 MG TABLET PO PRN (21:22)
--- NOTE | 2018-03-24 21:30 | NUR ---
CONSTRUCTION SALES MANAGER - REC'D PT. S/P RT. BILAT. LATERAL CHEST TUBE/THORASCOPY/DECORT. PT.IS A&O X 3, NSR/90'S. RT.RADIAL JANELL WAS ZEROED/CALIBRATED. SBP'S ARE IN THE 120-130'S & ARE NOW CORRELAT- ING. PT. HAD GOOD APPETITE/CARDIAC DIET. PT.IS ON R/A W/O2 SATS >93%. LUNG COOK ARE CLEAR ON LEFT & DIMINISHED ON RT. AFEBRILE. ALL PULSES PALPABLE X 4 EXT. JENIKNS'S-BUT PT. WAS TOLD THAT THIS IS SERIOUS & HE CANNOT GET OOB ON HIS OWN. HE VERBALLY AGREED TO USE CALL BARTH WHEN HE NEEDS TO USE URINAL. PT. HAS BELONGINGS AT BS CORNER & IS USING HIS CELL PHONE ON BS TABLE. RT.CT AREA HAS DRIED BLOOD ON LINENS & DRSG. NO ACTIVE BLEEDING NOTED.
[2018-03-25] VITALS (22 sets, daily range): BP systolic 80–146; BP diastolic 46–83
[2018-03-25] MEDS: HYDROMORPHONE INJ 2 MG/ML DISP.SYRIN IV PRN ×5 (00:55→16:44)
[2018-03-25] MEDS: ALBUTEROL FS 2.5 MG/0.5 ML VIAL.NEB NEB SCH ×4 (01:30→20:11)
[2018-03-25] MEDS ORDERED: IV PREMIX D5 1/2NS + KCL 1,000 ML IV ONE (02:35)
[2018-03-25] MEDS: IV D5/0.45 NACL W/20 MEQ KCL 1L IV PRN ×2 (02:56)
[2018-03-25 05:10] LABS: BASOPHILS % (AUTO) 0.1 % (0.0-2.0); EOSINOPHILS % (AUTO) 0.2 % (0.0-6.0); HEMATOCRIT 25 % (39-51); HEMOGLOBIN 8.2 g/dL (13.5-17.5); LYMPHOCYTES # (AUTO) 1.4 /CMM (0.8-4.8); LYMPHOCYTES % (AUTO) 8.7 % (20.0-44.0); MEAN CORPUSCULAR HGB CONC 32 g/dl (31.0-36.0); MEAN CORPUSCULAR VOLUME 81 fL (80-96); MONOCYTES % (AUTO) 6.6 % (2.0-12.0); NEUTROPHILS # (AUTO) 13.2 /CMM (1.8-8.9); NEUTROPHILS % (AUTO) 84.4 % (43.0-81.0); PLATELET COUNT (AUTO) 571 /CMM (150-450); RDW COEFFICIENT OF VARIATION 16.4 (11.5-15.0); RED BLOOD CELL COUNT(AUTO) 3.12 MIL/uL (4.5-6.0); WHITE BLOOD COUNT (AUTO) 15.7 K/uL (4.3-11.0)
[2018-03-25 05:42] LABS: ALBUMIN 2.2 g/dL (3.4-5.0); BILIRUBIN,TOTAL 0.4 mg/dL (0.2-1.0); CALCIUM, SERUM 8.9 mg/dL (8.5-10.1); CREATININE 0.8 mg/dL (0.6-1.3); MAGNESIUM 2.4 mg/dL (1.8-2.4); POTASSIUM 4.9 mmol/L (3.5-5.1); TOTAL PROTEIN, SERUM 6.6 g/dL (6.4-8.2)
--- NOTE | 2018-03-25 06:45 | NUR ---
CERTIFIED RESIDENTIAL MEDICATION AIDE - AT 5AM, LAB WENT INTO PT'S RM. TO DRAW AM LABS & DISCOVERED HIS JANELL TOTALLY DISLODGED & REMOVED. NO BLEEDING WAS NOTED ANYWHERE. PT. CLOTTED IMMEDIATELY. VSS/NIBP/AFEBRILE/SR-90'S. PT. CONT.W/O2 SATS IN THE HIGH 90'S/RA. CHEST TUBE HAD 900CC OF SANG. DRAINAGE NOTED. GOOD UOP VIA URINAL. DR. MELGOZA HERE AT 06:30AM. STATUS UPDATE GIVEN. MD AWARE OF NO JANELL. MD WAS ALSO MADE AWARE THAT WHEN I CHANGED CHEST TUBE DRSG, HIS SUTURE WAS DANGLING W/3 PARAG-NOTED. MD STATED PT. IS ALOUD TO GET OOB TO CHAIR. PT. MADE AWARE THAT HE MUST USE CALL BARTH FOR ANY MOVEMENT. VERBAL REPORT ENDORSED TO PATTI FERNANDEZ. FOR KATHIA.
--- NOTE | 2018-03-25 07:15 | NUR ---
RUNSTITCHING MACHINE OPERATOR NOTES RECEIVED PATIENT AOX4 , NOT IN ACUTE DISTRESS , SPO2 OF 100% VIA RA , DENIES SOB , COMPLAINS OF RIDE SIDED PAIN 6/ [place] IN CHARACTERISTICS WILL ADMINISTER PRN PAIN MEDICATION , RIGHT SIDED CHEST TUBE IN PLACE CONNECTED TO -20MMHG SUCTION ATRIUM WITH NO AIR LEAK NOTED DRAINING WITH SANGUINOUS OUTPUT , ST 105 ON BEDSIDE MONITOR , IV OF L FA # 20 PATENT AND INTACT , L WRIST # 20 PATENT AND INTACT WITH D5 1/2 NS WITH 20 KCL @ 75ML/HR INFUSING WELL , ALL NEEDS ATTENDED , BED ON LOW AND LOCKED POSITION , SIDE RAILS X2 CALL LIGHT WITHIN REACH HOB @ 35 , WILL CONTINUE TO MONITOR
[2018-03-25] MEDS: PANTOPRAZOLE 40 MG TABLET.DR PO SCH (07:22)
[2018-03-25] MEDS: clonazePAM 1 MG TABLET PO PRN (07:22)
[2018-03-25] MEDS: FERROUS SULFATE (325 MG) 325 MG/TAB TABLET PO SCH ×2 (08:58→16:32)
[2018-03-25] MEDS: DOCUSATE SODIUM 100 MG CAPSULE PO SCH ×2 (08:58→16:32)
[2018-03-25] MEDS: AMLODIPINE BESYLATE 5 MG TABLET PO SCH (08:59)
[2018-03-25] MEDS ORDERED: APIXABAN 5 MG TABLET PO SCH (09:00)
--- NOTE | 2018-03-25 15:00 | NUR ---
DIRECTOR OF KNOWLEDGE MANAGEMENT NOTES REPORT GIVEN TO DAVE FOR CONTINUITY OF CARE TRANSFERRED PT TO ROOM 116-1 STABLE AT THIS TIME ,AFEBRILE , SPO2 OF 100% VIA RA . NO DISTRESS NOTED , CHEST TUBE ATTACHED TO ATRIUM WATER SEAL @ -20MMHG ATTACHED TO WALL SUCTION DRAINED WITH 100ML SANGUINOUS OUTPUT ,
--- NOTE | 2018-03-25 15:10 | NUR ---
RN NOTES RECEIVED PT ON BED IN ROOM 116-1 FROM ICU , PT IS A/OX4, RESPIRATION EVEN AND UNLABORED, ON RA , R SIDE CHEST TUBE SITE CDI, DRAINING SEROSANGUINEOUS DRAINING , ON TELE HR 100'S ST , L FA IV SITE G 20 , AND L WRIST IV SITE G 20 SITES CDI, SR UP x3, CALL LIGHT WITHIN EASY REACH , BED LOCKED AND IN LOWEST POSITION , WILL CONTINUE TO MONITOR.
--- NOTE | 2018-03-25 18:04 | NUR ---
RN NOTES PT STABLE , RESPIRATION EVEN AND UNLABORED , CHEST TUBE INTACT , DRAINING TO GRAVITY , WILL ENDORSE TO DIAGNOSTIC TECHNICIAN NURSE FOR KATHIA
[2018-03-25] MEDS: KETOROLAC TROMETHAMINE INJ 30 MG/ML VIAL IV PRN (18:41)
--- NOTE | 2018-03-25 20:00 | NUR ---
RN NOTES RECEIVED BEDSIDE REPORT. PT ON BED, A/OX4, RESPIRATION EVEN AND UNLABORED, ON RA , R SIDE CHEST TUBE SITE CDI, ON TELE HR 96 SR, BBB , L FA IV SITE G 20 INFILTRATED AND HAS BEEN REMOVED AND EXTREMITY ELEVATED, L WRIST IV SITE G 20 IS PATIENT AND INTACT. ALL SAFETY MEASURES ARE IMPLEMENTED, BED IN LOWEST, LOCKED POSITION, BED ALARM IS ON, SR UP x2, CALL LIGHT WITHIN EASY REACH. WILL CONTINUE TO MONITOR.
[2018-03-25] MEDS: HYDROMORPHONE INJ 0.5 MG/0.5 ML SYRINGE IV PRN ×2 (20:48→23:40)
[2018-03-25] MEDS: ATORVASTATIN 10 MG TABLET PO SCH (21:58)
[2018-03-25] MEDS: TAMSULOSIN 0.4 MG CAP.SR.24H PO SCH (21:58)
[2018-03-25] MEDS: ZOLPIDEM TARTRATE 10 MG TABLET PO PRN (23:39)
[2018-03-26] VITALS: BP 116/67
[2018-03-26] MEDS: ALBUTEROL FS 2.5 MG/0.5 ML VIAL.NEB NEB SCH ×4 (01:10→19:30)
[2018-03-26] MEDS: KETOROLAC TROMETHAMINE INJ 30 MG/ML VIAL IV PRN ×2 (03:37→10:44)
[2018-03-26 04:00] VITALS: BP 97/75
[2018-03-26 05:48] LABS: BASOPHILS % (AUTO) 0.4 % (0.0-2.0); EOSINOPHILS % (AUTO) 3.8 % (0.0-6.0); HEMATOCRIT 24 % (39-51); HEMOGLOBIN 7.7 g/dL (13.5-17.5); LYMPHOCYTES # (AUTO) 1.3 /CMM (0.8-4.8); LYMPHOCYTES % (AUTO) 11.6 % (20.0-44.0); MEAN CORPUSCULAR HGB CONC 32 g/dl (31.0-36.0); MEAN CORPUSCULAR VOLUME 81 fL (80-96); MONOCYTES # (AUTO) 0.9 /CMM (0.1-1.30); MONOCYTES % (AUTO) 7.5 % (2.0-12.0); NEUTROPHILS # (AUTO) 8.8 /CMM (1.8-8.9); NEUTROPHILS % (AUTO) 76.7 % (43.0-81.0); PLATELET COUNT (AUTO) 498 /CMM (150-450); RDW COEFFICIENT OF VARIATION 16.3 (11.5-15.0); RED BLOOD CELL COUNT(AUTO) 2.98 MIL/uL (4.5-6.0); WHITE BLOOD COUNT (AUTO) 11.5 K/uL (4.3-11.0)
[2018-03-26 06:22] LABS: CALCIUM, SERUM 8.7 mg/dL (8.5-10.1); CREATININE 0.8 mg/dL (0.6-1.3); MAGNESIUM 2.2 mg/dL (1.8-2.4); POTASSIUM 4.6 mmol/L (3.5-5.1)
[2018-03-26 08:00] VITALS: BP 123/68
[2018-03-26] MEDS: DOCUSATE SODIUM 100 MG CAPSULE PO SCH ×2 (08:26→17:53)
[2018-03-26] MEDS: PANTOPRAZOLE 40 MG TABLET.DR PO SCH (08:26)
[2018-03-26] MEDS: FERROUS SULFATE (325 MG) 325 MG/TAB TABLET PO SCH ×2 (08:26→17:53)
[2018-03-26] MEDS: AMLODIPINE BESYLATE 5 MG TABLET PO SCH (08:27)
[2018-03-26] MEDS: HYDROMORPHONE INJ 0.5 MG/0.5 ML SYRINGE IV PRN ×3 (09:09→23:11)
[2018-03-26] MEDS: clonazePAM 1 MG TABLET PO PRN ×2 (10:47→15:21)
[2018-03-26 12:00] VITALS: BP 105/70
[2018-03-26] MEDS: HYDROMORPHONE INJ 2 MG/ML DISP.SYRIN IV PRN ×2 (15:21→17:54)
[2018-03-26 16:00] VITALS: BP 107/73
[2018-03-26] MEDS: RIVAROXABAN 10 MG TABLET PO SCH (17:54)
--- NOTE | 2018-03-26 19:30 | NUR ---
RN TD NOTES, RECEIVED PATIENT ON BED A/OX4, RESPIRATION EVEN AND UNLABORED, NO SOB/ACUTE DISTRESS NOTED AT THIS TIME, NO C/O PAIN AT THSI TIME, O2 SATURATION >96% ON RA , R SIDE CHEST TUBE SITE CDI, DRESSING CHANGED AT THIS TIME, ST 101 ON IMPRESS ASSOCIATE AT THIS TIME, RIGHT HAND IV ACCESS 20G PATENT AND INTACT S/L, ALL NEEDS PROVIDED, BED IN LOWEST, LOCKED POSITION, BED ALARM IS ON, CALL LIGHT WITHIN REACH. WILL CONTINUE TO MONITOR CLOSELY.
[2018-03-26 20:00] VITALS: BP 113/76
[2018-03-26] MEDS: ATORVASTATIN 10 MG TABLET PO SCH (21:00)
[2018-03-26] MEDS: TAMSULOSIN 0.4 MG CAP.SR.24H PO SCH (21:00)
[2018-03-26] MEDS: ZOLPIDEM TARTRATE 10 MG TABLET PO PRN (21:57)
[2018-03-27] VITALS: BP_SYST 109; BP_SYST 112; BP_DIAS 66; BP_DIAS 75
[2018-03-27] MEDS: HYDROMORPHONE INJ 0.5 MG/0.5 ML SYRINGE IV PRN ×9 (01:26→23:10)
[2018-03-27] MEDS: ALBUTEROL FS 2.5 MG/0.5 ML VIAL.NEB NEB SCH ×4 (01:30→20:17)
[2018-03-27 03:57] LABS: BASOPHILS # (AUTO) 0.1 /CMM (0.0-0.2); BASOPHILS % (AUTO) 0.6 % (0.0-2.0); EOSINOPHILS % (AUTO) 5.6 % (0.0-6.0); HEMATOCRIT 23 % (39-51); HEMOGLOBIN 7.2 g/dL (13.5-17.5); LYMPHOCYTES # (AUTO) 1.4 /CMM (0.8-4.8); LYMPHOCYTES % (AUTO) 14.7 % (20.0-44.0); MEAN CORPUSCULAR HGB CONC 32 g/dl (31.0-36.0); MEAN CORPUSCULAR VOLUME 81 fL (80-96); MONOCYTES # (AUTO) 0.7 /CMM (0.1-1.30); MONOCYTES % (AUTO) 6.8 % (2.0-12.0); NEUTROPHILS % (AUTO) 72.3 % (43.0-81.0); PLATELET COUNT (AUTO) 530 /CMM (150-450); RDW COEFFICIENT OF VARIATION 16.6 (11.5-15.0); RED BLOOD CELL COUNT(AUTO) 2.79 MIL/uL (4.5-6.0); WHITE BLOOD COUNT (AUTO) 9.7 K/uL (4.3-11.0)
[2018-03-27 04:00] VITALS: BP 108/74
[2018-03-27 04:15] LABS: CALCIUM, SERUM 8.9 mg/dL (8.5-10.1); CREATININE 0.8 mg/dL (0.6-1.3); MAGNESIUM 2.1 mg/dL (1.8-2.4); PHOSPHORUS 4.7 mg/dL (2.5-4.9); POTASSIUM 4.5 mmol/L (3.5-5.1)
[2018-03-27 04:28] LABS: FERRITIN 492 ng/mL (8-388)
[2018-03-27 04:41] LABS: IRON, SERUM 16 ug/dl (50-175); TOTAL IRON BINDING CAPACITY 160 ug/dl (250-450)
--- NOTE | 2018-03-27 06:38 | NUR ---
RN TD NOTES, PATIENT IN BED AWAKE, ALERT AND ORIENTED, ABLE TO COMMUNICATE NEEDS AND CONCERNS, RESPIRATIONS EVEN AND UNLABORED, NO SOB/ACUTE DISTRESS NOTED AT THIS TIME, ON PAIN MANAGEMENT, REQUESTED DILAUDID FOR PAIN Q2HRS THROUGHOUT AND ADMINISTERED ORDERED, O2 SATURATION >96% ON RA , RIGHT SIDE CHEST TUBE SITE CDI, DRESSING DRY AND CLEAN AT THIS TIME, 100ML DRAINAGE DURING THIS SHIFT, , SR ON TERMITE HELPER, , RIGHT HAND IV ACCESS 20G PATENT AND INTACT S/L, ALL NEEDS PROVIDED, BED IN LOWEST, LOCKED POSITION, BED ALARM IS ON, CALL LIGHT WITHIN REACH. WILL ENDORSE CONTINUITY OF CARE TO ONCOMING NURSE.
[2018-03-27] MEDS: IPRATROPIUM NEB FS 0.5 MG/2.5 ML AMPUL.NEB NEB PRN (07:33)
--- NOTE | 2018-03-27 07:35 | NUR ---
BUTCH RN NOTE: RECEIVED PATIENT IS IN BED, AWAKE, ALERT AND ABLE TO MAKE HIS NEEDS KNOWN WATCHING TELEVISION. ON CLASSIFIER OPERATOR, ST HR= 96. RESPIRATION IS EVEN AND UNLABORED. (R) MID-LATERAL CHEST TUBE NOTED IN PLACED INTACT AND NO AIR LEAKAGE NOTED. (R) HAND IV LINE NOTED PATENT AND INTACT. HOB ELEVATED. BED LOCKED AT ALL TIMES AND IN LOWEST POSITION. CALL LIGHT WITHIN REACH. NEEDS ANTICIPATED.
[2018-03-27] MEDS: PANTOPRAZOLE 40 MG TABLET.DR PO SCH (07:53)
[2018-03-27 08:00] VITALS: BP 106/68
[2018-03-27] MEDS: FERROUS SULFATE (325 MG) 325 MG/TAB TABLET PO SCH ×2 (09:18→16:07)
[2018-03-27] MEDS: AMLODIPINE BESYLATE 5 MG TABLET PO SCH (09:18)
[2018-03-27] MEDS: DOCUSATE SODIUM 100 MG CAPSULE PO SCH ×2 (09:18→16:06)
[2018-03-27 12:00] VITALS: BP 127/67
[2018-03-27] MEDS ORDERED: HYDROMORPHONE 1 MG/1 ML DISP.SYRIN IV PRN (12:00)
[2018-03-27] MEDS ORDERED: POLYETHYLENE GLYCOL 3350 17 GM POWD.PACK PO ONE (13:30)
[2018-03-27] MEDS: oxyCODONE IR immediate release 5 MG PO PRN ×2 (13:42→21:54)
[2018-03-27 16:00] VITALS: BP_SYST 123; BP_DIAS 61; BP_DIAS 81
[2018-03-27] MEDS: RIVAROXABAN 10 MG TABLET PO SCH (16:07)
--- NOTE | 2018-03-27 19:30 | NUR ---
SUPERVISOR POWDER AND PRIMER CANNING NOTES, RECEIVED PATIENT ON BED A/OX4, RESPIRATION EVEN AND UNLABORED, NO SOB/ACUTE DISTRESS NOTED AT THIS TIME, NO C/O PAIN AT THIS TIME, O2 SATURATION >96% ON RA , R SIDE CHEST TUBE SITE CDI, DRESSING DRY AND CLEAN NOTED, ST 100 ON PRESS ROOM SUPERVISOR AT THIS TIME, RIGHT HAND IV ACCESS 20G PATENT AND INTACT S/L, ALL NEEDS PROVIDED, BED IN LOWEST, LOCKED POSITION, BED ALARM IS ON, CALL LIGHT WITHIN REACH. WILL CONTINUE TO MONITOR CLOSELY.
--- NOTE | 2018-03-27 19:31 | NUR ---
PIANO ASSEMBLER NOTE: PATIENT IS IN BED, SEATED UPRIGHT AWAKE, ALERT AND ABLE TO MAKE HIS NEEDS KNOWN. ON WRAPPER LAYER AND EXAMINER SOFT WORK, ST HR= 105. RESPIRATION IS EVEN AND UNLABORED. (R) MID-LATERAL CHEST TUBE NOTED IN PLACED INTACT AND NO AIR LEAKAGE NOTED DRAINED 130CC SANGUINEOUS IN COLOR DURING THE SHIFT. (R) HAND IV LINE NOTED PATENT AND INTACT. PATIENT WAS GIVEN W/ DILAUDID 1MG IV PER MD ORDER C/O 8/10 ACHING PAIN ON HIS (R) MID-LATERAL CHEST TUBE SITE. CALL LIGHT WITHIN REACH. BED IN LOWEST POSITION. REPORT GIVEN TO PM SHIFT NURSE FOR CONTINUITY OF CARE.
[2018-03-27 20:00] VITALS: BP 144/95
[2018-03-27] MEDS: ATORVASTATIN 10 MG TABLET PO SCH (21:55)
[2018-03-27] MEDS: TAMSULOSIN 0.4 MG CAP.SR.24H PO SCH (21:55)
[2018-03-28] VITALS: BP 106/66
[2018-03-28] MEDS: ALBUTEROL FS 2.5 MG/0.5 ML VIAL.NEB NEB SCH ×4 (01:30→19:10)
[2018-03-28] MEDS: HYDROMORPHONE INJ 0.5 MG/0.5 ML SYRINGE IV PRN (02:51)
[2018-03-28 04:00] VITALS: BP 106/59
--- NOTE | 2018-03-28 06:40 | NUR ---
JOURNEYMAN SHEET METAL WORKER NOTES, PATIENT ON BED SLEEPING BUT EASILY AROUSABLE, RESPIRATION EVEN AND UNLABORED, NO SOB/ACUTE DISTRESS NOTED AT THIS TIME, NO C/O PAIN AT THIS TIME, O2 SATURATION >98% ON RA , R SIDE CHEST TUBE SITE CDI, DRESSING DRY AND CLEAN NOTED, ST 100 ON AIX ARCHITECT AT THIS TIME, RIGHT HAND IV ACCESS 20G PATENT AND INTACT S/L, ALL NEEDS PROVIDED, BED IN LOWEST, LOCKED POSITION, BED ALARM IS ON, CALL LIGHT WITHIN REACH. NO SIGNIFICANT CHANGE OF CONDITION THROUGHOUT THE [facility], WILL ENDORSE CONTINUITY OF CARE TO ONCOMING NURSE.
[2018-03-28 08:00] VITALS: BP 119/76
--- NOTE | 2018-03-28 08:00 | NUR ---
RN OPENING NOTES RECEIVED PT. IN BED A&OX4. BREATHING UNLABORED, AND EVENLY ON ROOM AIR. NO SOB. PT. PULLED OUT HIS IV FROM HIS RIGHT HAND, BLEEDING WAS STOPPED, PLEURAL VAC WAS TIPPED OVER, AND DISPLACED FLUIDS. NO S/S OF ACUTE DISTRESS. BED IS IN LOWEST, AND LOCKED POSITION. 2 SIDE RAILS UP, AND INSTRUCTED PT. TO USE CALL LIGHT FOR ASSISTANCE. WILL CONTINUE TO ASSESS AND MONITOR.
[2018-03-28 08:30] LABS: CALCIUM, SERUM 9.1 mg/dL (8.5-10.1); CREATININE 0.8 mg/dL (0.6-1.3); MAGNESIUM 2.1 mg/dL (1.8-2.4); PHOSPHORUS 4.7 mg/dL (2.5-4.9); POTASSIUM 4.2 mmol/L (3.5-5.1)
[2018-03-28 08:33] LABS: BASOPHILS % (AUTO) 0.6 % (0.0-2.0); HEMATOCRIT 23 % (39-51); HEMOGLOBIN 7.6 g/dL (13.5-17.5); LYMPHOCYTES # (AUTO) 1.4 /CMM (0.8-4.8); LYMPHOCYTES % (AUTO) 18.1 % (20.0-44.0); MEAN CORPUSCULAR HGB CONC 32 g/dl (31.0-36.0); MEAN CORPUSCULAR VOLUME 80 fL (80-96); MONOCYTES # (AUTO) 0.7 /CMM (0.1-1.30); MONOCYTES % (AUTO) 9.1 % (2.0-12.0); NEUTROPHILS % (AUTO) 66.2 % (43.0-81.0); PLATELET COUNT (AUTO) 562 /CMM (150-450); RDW COEFFICIENT OF VARIATION 16.9 (11.5-15.0); RED BLOOD CELL COUNT(AUTO) 2.93 MIL/uL (4.5-6.0); WHITE BLOOD COUNT (AUTO) 7.6 K/uL (4.3-11.0)
[2018-03-28] MEDS: DOCUSATE SODIUM 100 MG CAPSULE PO SCH ×2 (09:32→16:56)
[2018-03-28] MEDS: FERROUS SULFATE (325 MG) 325 MG/TAB TABLET PO SCH ×2 (09:32→16:56)
[2018-03-28] MEDS: PANTOPRAZOLE 40 MG TABLET.DR PO SCH (09:32)
[2018-03-28] MEDS: oxyCODONE IR immediate release 5 MG PO PRN ×2 (09:34→18:13)
[2018-03-28] MEDS: AMLODIPINE BESYLATE 5 MG TABLET PO SCH (09:35)
--- NOTE | 2018-03-28 10:00 | NUR ---
RN NOTES NEW PLEURAL VAC FOR CHEST PUT WAS PLACED. PT. HAD CHEST X RAY.
[2018-03-28 12:00] VITALS: BP 100/55
[2018-03-28 16:00] VITALS: BP_SYST 141; BP_SYST 95; BP_DIAS 52; BP_DIAS 70
--- NOTE | 2018-03-28 16:00 | NUR ---
RN NOTES TRIED TO RESTART NEW IV SITE TWICE, AFTER SECOND TRY PT. DID NOT WANT TO TRY A 3RD TIME. PT. REQUESTED TO TRY AGAIN TOMORROW.
[2018-03-28] MEDS: RIVAROXABAN 10 MG TABLET PO SCH ×2 (16:59→19:02)
--- NOTE | 2018-03-28 16:59 | NUR ---
RN NOTES PT. REFUSED TO TAKE XARELTO UNTIL HE DISCUSSES NEW MEDICATIONS OPTIONS WITH DR. MUNROE.
--- NOTE | 2018-03-28 19:30 | NUR ---
HELP DESK ANALYST NOTES, RECEIVED PATIENT ON BED A/OX4, RESPIRATION EVEN AND UNLABORED, NO SOB/ACUTE DISTRESS NOTED AT THIS TIME, NO C/O PAIN AT THIS TIME, O2 SATURATION >97% ON RA , R SIDE CHEST TUBE SITE CDI, DRESSING DRY AND INTACT AT SITE, SR ON PRODUCTION SUPPORT DEVELOPER AT THIS TIME, NOTED PATIENT WITH NO IV ACCESS, ASKED PATIENT IF IS OK TO PUT AN IV ACCES AND EDUCATED ABOUT THE IMPORTANCE OF HAVE IV ACCES WHILE IN HOSPITAL, AND HE REFUSED, EXPLAINED RISKS AND BENEFITS X3, STILL REFUSED, AND STATED THAT HE WANT THAT DONE IN THE MORNING, WILL F/U IF HE CHANGES HIS MIND, ALL NEEDS PROVIDED, BED LOCKED AND IN LOWEST POSITION, BED ALARM IS ON, CALL LIGHT WITHIN REACH. WILL CONTINUE TO MONITOR CLOSELY.
--- NOTE | 2018-03-28 19:58 | NUR ---
RN CLOSING NOTES PT.IS IN BED A&OX4. BREATHING UNLABORED, AND EVENLY ON ROOM AIR. NO SOB. NO S/S OF ACUTE DISTRESS. BED IS IN LOWEST, AND LOCKED POSITION. 2 SIDE RAILS UP, AND INSTRUCTED PT. TO USE CALL LIGHT FOR ASSISTANCE. CHEST TUBE IS INTACT CONNECTED TO PLEURAL VAC, PT. HAD 80 CC OF DRAINAGE FROM CHEST TUBE. WILL ENDORSE REPORT TO NURSE.
[2018-03-28 20:00] VITALS: BP 111/71
[2018-03-28] MEDS: TAMSULOSIN 0.4 MG CAP.SR.24H PO SCH (21:27)
[2018-03-28] MEDS: ATORVASTATIN 10 MG TABLET PO SCH (21:27)
[2018-03-28] MEDS: clonazePAM 1 MG TABLET PO PRN (21:31)
[2018-03-28] MEDS: ZOLPIDEM TARTRATE 10 MG TABLET PO PRN (23:33)
[2018-03-29] VITALS (7 sets, daily range): BP systolic 90–141; BP diastolic 39–85
[2018-03-29] MEDS: oxyCODONE IR immediate release 5 MG PO PRN ×4 (00:10→20:31)
[2018-03-29] MEDS: ALBUTEROL FS 2.5 MG/0.5 ML VIAL.NEB NEB SCH ×4 (01:05→19:01)
[2018-03-29 06:21] LABS: BASOPHILS % (AUTO) 0.6 % (0.0-2.0); EOSINOPHILS % (AUTO) 5.6 % (0.0-6.0); HEMATOCRIT 23 % (39-51); HEMOGLOBIN 7.4 g/dL (13.5-17.5); LYMPHOCYTES # (AUTO) 1.3 /CMM (0.8-4.8); LYMPHOCYTES % (AUTO) 16.8 % (20.0-44.0); MEAN CORPUSCULAR HGB CONC 32 g/dl (31.0-36.0); MEAN CORPUSCULAR VOLUME 80 fL (80-96); MONOCYTES # (AUTO) 0.7 /CMM (0.1-1.30); MONOCYTES % (AUTO) 8.5 % (2.0-12.0); NEUTROPHILS # (AUTO) 5.2 /CMM (1.8-8.9); NEUTROPHILS % (AUTO) 68.5 % (43.0-81.0); PLATELET COUNT (AUTO) 520 /CMM (150-450); RDW COEFFICIENT OF VARIATION 17.1 (11.5-15.0); WHITE BLOOD COUNT (AUTO) 7.6 K/uL (4.3-11.0)
--- NOTE | 2018-03-29 06:41 | NUR ---
RN CLOSING NOTES PT.IS IN BED SLEEPING AT THIS TIME, BREATHING UNLABORED, AND EVENLY ON ROOM AIR. NO SOB OR S/S OF ACUTE DISTRESS, NO IV ACCESS AT THIS TIME PER PATIENT HE WANTS THE IV INSERTION THIS MORNING, CHEST TUBE INTACT CONNECTED TO PLEURAL VAC DRAINAGE 80CC IN MY SHIFT, NO S/S OF INFECTION AT SITE, DRESSING DRY AND INTACT, BED LOCKED AND IN LOWEST POSITION, CALL LIGHT W/I REACH, WILL ENDORSE CONTINUITY OF CARE TO ONCOMING NURSE.
[2018-03-29 06:45] LABS: CALCIUM, SERUM 8.8 mg/dL (8.5-10.1); CREATININE 0.8 mg/dL (0.6-1.3); MAGNESIUM 2.2 mg/dL (1.8-2.4); PHOSPHORUS 4.2 mg/dL (2.5-4.9); POTASSIUM 4.4 mmol/L (3.5-5.1)
--- NOTE | 2018-03-29 07:15 | NUR ---
RN OPENING NOTES PATIENT RECEIVED IN BED SLEEPING AT THIS TIME,NO SOB NO DISTRESS NOTED. ON ROOM AIR. NO IV ACCESS AT THIS TIME PER PATIENT HE WANTS THE IV INSERTION LATER MORNING, CHEST TUBE INTACT CONNECTED TO PLEURAL VAC. DRESSING DRY AND INTACT, BED LOCKED AND IN LOWEST POSITION, CALL LIGHT IN REACH.PATIENT REFUSED BREATHING TREATMENT.CONTINUE TO MONITOR.
[2018-03-29] MEDS: PANTOPRAZOLE 40 MG TABLET.DR PO SCH (07:59)
[2018-03-29] MEDS: FERROUS SULFATE (325 MG) 325 MG/TAB TABLET PO SCH ×2 (08:04→17:12)
[2018-03-29] MEDS: DOCUSATE SODIUM 100 MG CAPSULE PO SCH ×2 (08:04→17:11)
[2018-03-29] MEDS: AMLODIPINE BESYLATE 5 MG TABLET PO SCH (08:08)
[2018-03-29] MEDS ORDERED: APIXABAN 2.5 MG TABLET PO SCH (09:00)
--- NOTE | 2018-03-29 09:00 | NUR ---
RN NOTE PATIENT DON'T HAVE IV LINE.REQUESTED TO INSERT IV LINE.PATIENT REFUSED.EXPLAINED THE RISK AND BENEFITT.WILL FOLLOW UP LATER.
--- NOTE | 2018-03-29 09:50 | NUR ---
RN NOTE RADIOLOGY WAS AT PATIENT ROOM TO TAKE PATIENT FOR CT CHEST DOCTOR ORDERED ,PATIENT REFUSED.
--- NOTE | 2018-03-29 10:30 | NUR ---
RN NOTE CLARIFIED WITH DR MUNROE REGARDING CT CHEST,CT CHEST AFTER THE REMOVAL OF THE CHEST TUBE.PATIENT AWARE.
[2018-03-29] MEDS: MAGNESIUM HYDROXIDE 30 ML UDC PO PRN (11:21)
--- NOTE | 2018-03-29 13:40 | NUR ---
RN NOTE MADE AWARE THAT PATIENT DID NOT HAVE BM MORE THAN 3 DAYS.GOT AN ORDER FOR DULCOLAX.
--- NOTE | 2018-03-29 14:00 | NUR ---
RN NOTES SEEN BY WITH ORDER FOR D/C CHEST TUBE SUCTION.WATER SEAL ONLY.SUCTION DISCONTINUED.CONTINUE TO MONITOR.
[2018-03-29] MEDS: BISACODYL (5 MG) 5 MG TABLET.DR PO PRN (14:06)
--- NOTE | 2018-03-29 15:00 | NUR ---
RN NOTE CT SCAN DONE PER ORDER.
[2018-03-29] MEDS: RIVAROXABAN 10 MG TABLET PO SCH ×2 (17:00→17:11)
--- NOTE | 2018-03-29 18:00 | NUR ---
RN NOTE PATIENT REFUSED IV LINE INSERTION.
--- NOTE | 2018-03-29 18:43 | NUR ---
RN SHIFT END NOTES PATIENT IN BED AXOX4,NO SOB NO DISTRESS NOTED DURING SHIFT. ON ROOM AIR.ON TELE MONITOR WITH SINUS RHYTHM OF 84. NO IV ACCESS AT THIS TIME, OFFERED MANY TIMES BUT PATIENT REFUSED.EXPLAINED RISK AND BENEFIT., CHEST TUBE INTACT CONNECTED TO WATER SEAL.NO SUCTION. DRESSING DRY AND INTACT, BED LOCKED AND IN LOWEST POSITION, CALL LIGHT IN REACH.PATIENT REFUSED BREATHING TREATMENT.WILL ENDORSE TO PM NURSE FOR KATHIA.
[2018-03-29] MEDS: ATORVASTATIN 10 MG TABLET PO SCH (22:00)
[2018-03-29] MEDS: ZOLPIDEM TARTRATE 10 MG TABLET PO PRN (22:42)
[2018-03-29] MEDS: TAMSULOSIN 0.4 MG CAP.SR.24H PO SCH (22:42)
--- NOTE | 2018-03-29 23:20 | NUR ---
RN NOTES PATIENT IN BED AXOX4,NO SOB. ON ROOM AIR.ON TELE MONITOR WITH SINUS RHYTHM OF 80. NO IV ACCESS AT THIS TIME, PT REFUSED AND EXPLAINED RISKS AND BENEFITS. CHEST TUBE INTACT CONNECTED TO WATER SEAL.NO SUCTION. DRESSING DRY AND INTACT, BED LOCKED AND IN LOWEST POSITION, CALL LIGHT IN REACH. WILL CONTINUE TO MONITOR
[2018-03-30] VITALS: BP 124/69
[2018-03-30] MEDS: ALBUTEROL FS 2.5 MG/0.5 ML VIAL.NEB NEB SCH ×4 (01:30→19:51)
[2018-03-30 04:00] VITALS: BP 134/72
--- NOTE | 2018-03-30 04:01 | NUR ---
RN NOTES PT REFUSED TELE MONITOR. PT NOTIFIED OF RISKS AND BENEFITS. WILL CONTINUE TO MONITOR.
[2018-03-30] MEDS: oxyCODONE IR immediate release 5 MG PO PRN ×3 (05:46→21:16)
[2018-03-30 06:47] LABS: BASOPHILS % (AUTO) 0.5 % (0.0-2.0); EOSINOPHILS % (AUTO) 5.3 % (0.0-6.0); HEMATOCRIT 24 % (39-51); HEMOGLOBIN 7.6 g/dL (13.5-17.5); LYMPHOCYTES # (AUTO) 1.4 /CMM (0.8-4.8); LYMPHOCYTES % (AUTO) 15.8 % (20.0-44.0); MEAN CORPUSCULAR HGB CONC 32 g/dl (31.0-36.0); MEAN CORPUSCULAR VOLUME 80 fL (80-96); MONOCYTES # (AUTO) 0.8 /CMM (0.1-1.30); MONOCYTES % (AUTO) 9.6 % (2.0-12.0); NEUTROPHILS # (AUTO) 5.9 /CMM (1.8-8.9); NEUTROPHILS % (AUTO) 68.8 % (43.0-81.0); PLATELET COUNT (AUTO) 509 /CMM (150-450); RDW COEFFICIENT OF VARIATION 16.9 (11.5-15.0); RED BLOOD CELL COUNT(AUTO) 2.95 MIL/uL (4.5-6.0); WHITE BLOOD COUNT (AUTO) 8.6 K/uL (4.3-11.0)
[2018-03-30 07:12] LABS: CALCIUM, SERUM 9.1 mg/dL (8.5-10.1); CREATININE 0.7 mg/dL (0.6-1.3); MAGNESIUM 2.2 mg/dL (1.8-2.4); PHOSPHORUS 4.4 mg/dL (2.5-4.9); POTASSIUM 4.5 mmol/L (3.5-5.1)
--- NOTE | 2018-03-30 07:20 | NUR ---
RN NOTES. PT STABLE CONDITION. NO CHANGE THROUGHOUT SHIFT. BED LOCKED LOWEST POSITION. CALL LIGHT WITHIN REACH. WILL ENDORSE TO ONCOMING NURSE.
--- NOTE | 2018-03-30 07:49 | NUR ---
PT REFUSED HHN TX AT THIS TIME. PT ON ROOM AIR. NO SOB/RESP DISTRESS NOTED. WILL CONTINUE TO MONITOR PT. WILL NOTIFY RN
[2018-03-30 08:00] VITALS: BP 97/52
--- NOTE | 2018-03-30 08:07 | NUR ---
FILM OR VIDEOTAPE EDITOR NOTE RESTING COMFORTABLY IN BED , WITH RT SIDE CHEST TUBE IN PLACE ON TELE MONITOR SR AT THIS TIME , BED IN LOWEST AND LOCKED POSITION , REFUSED TO DO BREATHING TX EXPLAINED OF BENEFITS ,STILL REFUSED WILL F\U NO SOB NOTED AT THIS TIME ,ON RA
[2018-03-30] MEDS: AMLODIPINE BESYLATE 5 MG TABLET PO SCH (09:00)
[2018-03-30] MEDS: DOCUSATE SODIUM 100 MG CAPSULE PO SCH ×2 (09:30→17:17)
[2018-03-30] MEDS: FERROUS SULFATE (325 MG) 325 MG/TAB TABLET PO SCH ×2 (09:30→17:17)
[2018-03-30] MEDS: MAGNESIUM HYDROXIDE 30 ML UDC PO PRN (09:33)
[2018-03-30] MEDS: PANTOPRAZOLE 40 MG TABLET.DR PO SCH (09:33)
[2018-03-30] MEDS: BISACODYL (5 MG) 5 MG TABLET.DR PO PRN (10:12)
--- NOTE | 2018-03-30 10:24 | NUR ---
BOILING HOUSE HAND NOTE SEEN BY DR DILL STATED CHEST TUBE WILL BE REMOVED TODAY AND THAN WILL BE D\C TO SNF ALSO AWARE LOZANO HG 7.6 NO NEW ORDER GIVEN AT THIS TIME
[2018-03-30] MEDS ORDERED: TAMS-12 PO (10:30)
[2018-03-30] MEDS ORDERED: OXYC5CAP18 PO (10:30)
[2018-03-30] MEDS ORDERED: BISA5TAB10 PO (10:30)
[2018-03-30] MEDS ORDERED: PANT40TA2 PO (10:30)
[2018-03-30 12:00] VITALS: BP 111/73
[2018-03-30 16:00] VITALS: BP 97/42
[2018-03-30] MEDS: RIVAROXABAN 10 MG TABLET PO SCH (17:00)
--- NOTE | 2018-03-30 17:24 | NUR ---
MS RN NOTE CALLED TO DR PHAN TO SEE PATIENT ABOUT CHEST TO REMOVE ; LEFT A MESSAGE, WILL F\U
--- NOTE | 2018-03-30 17:52 | NUR ---
MS BORIS PHAN AT BEDSIDE NO CHEST REMOVED TODAY WILL MONITOR TOMORROW
--- NOTE | 2018-03-30 18:51 | NUR ---
MS RN NOTE ALL NEEDS ATTENDED .NOT IN ACUTE DISTRESS ,CONT CHEST TUBE TO WATER SEAL DRESSING ON RT SIDE OF CHEST INTACT, NO C\O PAIN OR DISCOMFORT
[2018-03-30 20:00] VITALS: BP 103/54
[2018-03-30] MEDS: TAMSULOSIN 0.4 MG CAP.SR.24H PO SCH (21:02)
[2018-03-30] MEDS: ZOLPIDEM TARTRATE 10 MG TABLET PO PRN (21:02)
[2018-03-30] MEDS: HYDROMORPHONE INJ 0.5 MG/0.5 ML SYRINGE IV PRN ×3 (21:03→21:50)
[2018-03-30] MEDS: ATORVASTATIN 10 MG TABLET PO SCH (21:15)
[2018-03-31] MEDS: ALBUTEROL FS 2.5 MG/0.5 ML VIAL.NEB NEB SCH ×4 (01:16→20:12)
[2018-03-31] MEDS ORDERED: HYDROMORPHONE INJ 2 MG/ML DISP.SYRIN ONE (02:50)
[2018-03-31 04:00] VITALS: BP_SYST 109; BP_SYST 122; BP_DIAS 47; BP_DIAS 76
--- NOTE | 2018-03-31 06:09 | NUR ---
RN CLOSING NOTES COMFORTABLY RESTING IN BED WITH NO DISTRESS NOTED. BREATHING EVEN AND UNLABORED. NO COMPLAINT OF PAIN OR DISCOMFORT. NO SIGNIFICANT CHANGE OF CONDITION. WITAL SIGNS WNL. WIIL ENDORSE TO AM SHIFT FOR CONTINUITY OF CARE.
--- NOTE | 2018-03-31 07:10 | NUR ---
MS RN OPENING NOTES RECEIVED PT IN BED, ALERT AND ORIENTED X4, BREATHING EVEN AND UNLABORED, WITH INTACT CHEST TUBE CONNECTED TO 20 CM WATER SEAL, DRAINING SEROSANGUINOUS DRAINAGE, STILL NOTED BUBBLING. AVAILABLE AT BEDSIDE: VASELINE GAUZE, 4X4 GAUZE. SCISSORS. AND TAPE. WITH C/O ACHING ON RIGHT LATERAL TO BACK PAIN WITH PAIN SCALE OF 8/10 AGGREVATED WHEN CHANGING POSITION, NON PHARMACOLOGIC THERAPY DONE BUT PT STILL IN PAIN, WITH NO IV ACCESS, MD AWARE PER REPORT, WILL ADMINISTER PAIN MEDS ORDERED, BED IN LOW AND LOCKED POSITION, CALL LIGHT WITHIN REACH, WILL KEEP MONITORING,
[2018-03-31 08:00] VITALS: BP 129/72
[2018-03-31] MEDS: PANTOPRAZOLE 40 MG TABLET.DR PO SCH (08:24)
[2018-03-31] MEDS: FERROUS SULFATE (325 MG) 325 MG/TAB TABLET PO SCH ×2 (08:24→17:48)
[2018-03-31] MEDS: DOCUSATE SODIUM 100 MG CAPSULE PO SCH ×2 (08:24→17:47)
[2018-03-31] MEDS: AMLODIPINE BESYLATE 5 MG TABLET PO SCH (08:25)
[2018-03-31] MEDS: oxyCODONE IR immediate release 5 MG PO PRN ×2 (08:27→10:19)
[2018-03-31] MEDS: BISACODYL (5 MG) 5 MG TABLET.DR PO PRN (08:28)
--- NOTE | 2018-03-31 09:57 | NUR ---
MS1/RN DILAUDID IVP CHANGE TO P.O. ASKED DR. DILL IF THE ROUTE FOR PRN DILAUDID FROM IVP CHANGE TO P.O, RECEIVED ORDER TO CHANGE TO P.O AND HAVE PHARMACY DO CONVERSION ON DOSING, SPOKEN TO ANGIE (PHARMACY). MONITORING.
--- NOTE | 2018-03-31 10:30 | NUR ---
MS1/RN ROUNDS - DR. DILL UPDATED PT'S CONDITION. PT SEEN & EXAMINED BY DR. DILL, NO NEW ORDERS RECEIVED BUT ASKED WHY PT IS STILL ADMITTED, EXPLAINED PER PM NURSE REPORT WAS SEEN BY DR. MELGOZA YESTERDAY, DETERMINED THAT PT STILL NEED TO CONTINUE TX HERE IN THE HOSPITAL. ALSO PT WAS SEEN BY DR. MELGOZA'S PA, NO NEW ORDERS RECEIVED FROM HER. CHEST TUBE SITE CLEANSE AND RE-DRESSED, NOTED MINIMAL DRAINAGE (MOIST SEROSANGUINEOUS), NO S/S OF INFECTION, PT TOLERATED TX. MONITORING CONTINUED.
--- NOTE | 2018-03-31 11:45 | NUR ---
MS1/RN ROUNDS - DR. HILLIARD PT SEEN & EXAMINED BY DR. HILLIARD. NO NEW ORDERS RECEIVED AT THIS TIME. MONITORING CONTINUED. Addendum: 03/31/18 at 1229 by KRISTA HASTINGS RN ADDENDUM: DR. HILLIARD DISCUSSED DISCHARGE PLAN TO PT, SAID PROBABLY WON'T BE ABLE TO BE ADMITTED TO [facility] D/T CHEST TUBE, BUT PERHAPS AT [place]. WILL NOTIFY CASE MANAGEMENT REGARDING THIS CONVERSATION.
[2018-03-31] MEDS: HYDROMORPHONE HCL 2 MG TABLET PO PRN ×2 (13:47→20:57)
[2018-03-31] MEDS ORDERED: FERROUS SULFATE (325 MG) 325 MG/TAB TABLET PO SCH (14:30)
[2018-03-31] MEDS: RIVAROXABAN 10 MG TABLET PO SCH (17:48)
--- NOTE | 2018-03-31 19:00 | NUR ---
MS RN CLOSING NOTES PT IN BED, RESTING COMFORTABLY, NO ACUTE CHANGES NOTED DURING THE SHIFT, KEPT CHEST TUBE DRY, INTACT AND CONNECTED TO WATER SEAL DRAIN. AVAILABLE AT BEDSIDE: VASELINE GAUZE, 4X4 GAUZE. SCISSORS. AND TAPE. ALL NEEDS MET, PT ENDORSED TO PM TO CONTINUE CARE, SAFETY MAINTAINED
[2018-03-31 20:00] VITALS: BP 122/68
--- NOTE | 2018-03-31 20:05 | NUR ---
RN NOTES IN BED RESTING COMFORTABLY WATCHING TV WITH NO RESPIRATORY DISTRESS OR SHORTNESS OF BREATH. BREATHING EVEN AND UNLABORED. ALERT AND ORIENTED. ROOM AIR WELL TOLERATED. ABLE TO VERBALLY COMMUNICATE NEEDS. COMPLAINING OF RIGHT CHEST PAIN DUE TO CHEST TUBE. NEEDS ATTENDED. KEPT CLEAN AND DRY. WILL CONTINUE TO MONITOR
[2018-03-31] MEDS: ZOLPIDEM TARTRATE 10 MG TABLET PO PRN (20:58)
[2018-03-31] MEDS: ATORVASTATIN 10 MG TABLET PO SCH (22:20)
[2018-03-31] MEDS: TAMSULOSIN 0.4 MG CAP.SR.24H PO SCH (22:20)
[2018-03-31] MEDS: clonazePAM 1 MG TABLET PO PRN (22:41)
[2018-04-01] MEDS: ALBUTEROL FS 2.5 MG/0.5 ML VIAL.NEB NEB SCH ×4 (00:40→20:02)
[2018-04-01 04:00] VITALS: BP 116/60
[2018-04-01] MEDS: HYDROMORPHONE HCL 2 MG TABLET PO PRN ×3 (05:10→22:00)
--- NOTE | 2018-04-01 06:45 | NUR ---
RN CLOSING NOTES VITAL SIGNS WNL. NO DISTRESS NOTED, BREATHING EVEN AND UNLABORED. NO SIGNIFICANT CHANGE OF CONDITION. NEEDS ATTENDED. KEPT CLEAN AND DRY. WILL ENDORSE TO AM SHIFT FOR CONTINUITY OF CARE
[2018-04-01 08:00] VITALS: BP 110/67
--- NOTE | 2018-04-01 08:00 | NUR ---
MS1/RN AM SHIFT INITIAL NOTES RECEIVED PT ASLEEP IN BED, PT A/O X 4, NO ACUTE RESPIRATORY DISTRESS NOTED, VERBALIZED PAIN RATED 4/10 IN RIGHT CHEST TUBE. ON ROOM AIR SATURATING @ 96%, LUNG SOUNDS CLEAR. PT HAS NO IV SITE. RIGHT CHEST TUBE INTACT CONNECTED TO 20CM WATER SEAL CHAMBER DRAIN, BUBBLING, NOTED WITH SEROSANGUINEOUS OUTPUT. AT BEDSIDE AVAILABLE: VASELINE GAUZE, 4X4 GAUZE, SCISSORS AND TAPE. SCHEDULED AM MEDS TO BE GIVEN. CL WITHIN REACHED AND SAFETY MAINTAINED. ON GOING MONITORING.
--- NOTE | 2018-04-01 08:02 | NUR ---
RT PATIENT DID NOT WANT HHN TX AT THIS TIME, WANTED TO EAT BREAKFAST. NO SOB NOTED, PATIENT AWAKE + ALERT.
[2018-04-01] MEDS: DOCUSATE SODIUM 100 MG CAPSULE PO SCH ×2 (08:49→17:15)
[2018-04-01] MEDS: FERROUS SULFATE (325 MG) 325 MG/TAB TABLET PO SCH ×2 (08:50→17:16)
[2018-04-01] MEDS: PANTOPRAZOLE 40 MG TABLET.DR PO SCH (08:50)
[2018-04-01] MEDS: AMLODIPINE BESYLATE 5 MG TABLET PO SCH (08:50)
[2018-04-01] MEDS: LACTULOSE 10 G/15 ML UDC (PYXIS) PO PRN ×2 (08:54→17:15)
--- NOTE | 2018-04-01 12:00 | NUR ---
MS1/RN ROUNDS - DR. RHONA MELGOZA SEEN & EXAMINED PT, REMOVED ONE OF THE TUBES IN THE RIGHT LUNG WITH MYSELF ASSISTING. PRESSURE DRESSING REINFORCED. ONE TUBE LEFT, PT TOLERATED PROCEDURE. PER MD PT NEEDS TO STAY IN HOSPITAL FOR ABOUT 2 DAYS. NO NEW ORDERS RECEIVED, CASE MANAGEMENT AWARE OF DR. MELGOZA'S ORDER TO HOLD DISCHARGE, CASE MANAGEMENT WILL NOTIFY DR. DILL. MONITORING.
[2018-04-01] MEDS: oxyCODONE IR immediate release 5 MG PO PRN (12:13)
[2018-04-01] MEDS: IPRATROPIUM NEB FS 0.5 MG/2.5 ML AMPUL.NEB NEB PRN (13:00)
[2018-04-01 16:00] VITALS: BP 136/80
--- NOTE | 2018-04-01 17:00 | NUR ---
MS1/RN AFTERNOON ROUNDS NO CHANGE OF CONDITION. ON GOING MONITORING.
[2018-04-01] MEDS: RIVAROXABAN 10 MG TABLET PO SCH (17:15)
--- NOTE | 2018-04-01 19:31 | NUR ---
MS1/RN AM SHIFT END NOTES ALL NEEDS MET. NO ACUTE CHANGE OF CONDITION NOTED DURING THE SHIFT. PT ENDORSED TO PM NURSE TO CONTINUE CARE. CL WITHIN REACHED AND SAFETY MAINTAINED.
[2018-04-01 20:00] VITALS: BP 104/56
[2018-04-01] MEDS: TAMSULOSIN 0.4 MG CAP.SR.24H PO SCH (22:00)
[2018-04-01] MEDS: ATORVASTATIN 10 MG TABLET PO SCH (22:00)
--- NOTE | 2018-04-01 22:48 | NUR ---
MS1/RN PATIENT IS SLEEPING, AROUSABLE, APPEAR COMFORTABLE, NO SIGNS OF DISTRESS NOTED, CALL LIGHT IN REACH. WILL CONTINUE TO MONITOR.
[2018-04-02] MEDS: ZOLPIDEM TARTRATE 10 MG TABLET PO PRN ×2 (00:38→21:35)
--- NOTE | 2018-04-02 00:41 | NUR ---
MS1/RN AWAKE, AMBIEN 10 MG PO WAS GIVEN PER PATIENT'S REQUEST FOR SLEEP. WILL CONTINUE TO MONITOR
[2018-04-02] MEDS: ALBUTEROL FS 2.5 MG/0.5 ML VIAL.NEB NEB SCH ×4 (01:24→20:22)
--- NOTE | 2018-04-02 01:40 | NUR ---
MS1/RN PATIENT IS SLEEPING AT THIS TIME, EASILY AROUSABLE, APPEAR COMFORTABLE, NO SIGNS OF DISTRESS NOTED, CALL LIGHT IN REACH. WILL CONTINUE TO MONITOR.
[2018-04-02 04:00] VITALS: BP 106/52
[2018-04-02] MEDS: oxyCODONE IR immediate release 5 MG PO PRN (04:06)
[2018-04-02] MEDS: BISACODYL (5 MG) 5 MG TABLET.DR PO PRN (04:11)
--- NOTE | 2018-04-02 04:14 | NUR ---
MS1/RN C/O NO BM YET AFTER DOSE OF LACTULOSE YESTERDAY, DULCOLAX 10 MG WAS GIVEN ORDERED. WILL MONITOR.
--- NOTE | 2018-04-02 06:30 | NUR ---
MS1/RN PATIENT WAS AWAKE, REFUSED MORNING CARE. PATIENT JUST REQUESTED FOR NEW BLANKETS. ALL NEEDS ATTENDED AT THIS TIME. WILL CONTINUE TO MONITOR.
[2018-04-02 08:00] VITALS: BP 94/53
--- NOTE | 2018-04-02 08:00 | NUR ---
MS1/RN AM SHIFT INITIAL NOTES RECEIVED PT AWAKE IN BED, COMPLAINING OF CONSTIPATION. ON ROOM AIR, SATURATING @ 99%, LUNG SOUNDS CLEAR. PT HAS NO IV SITE. ONE RIGHT CHEST TUBE INTACT, CONNECTED TO 20CM WATER SEAL CHAMBER DRAIN, STILL NOTED BUBBLING, NOTED WITH SEROSANGUINEOUS OUTPUT. AT BEDSIDE AVAILABLE: VASELINE GAUZE, 4X4 GAUZE, SCISSORS AND TAPE. SCHEDULED AM MEDS TO BE GIVEN. CL WITHIN REACHED AND SAFETY MAINTAINED. ON GOING MONITORING.
[2018-04-02] MEDS: FERROUS SULFATE (325 MG) 325 MG/TAB TABLET PO SCH ×2 (08:22→16:42)
[2018-04-02] MEDS: DOCUSATE SODIUM 100 MG CAPSULE PO SCH ×3 (08:22→16:46)
[2018-04-02] MEDS: PANTOPRAZOLE 40 MG TABLET.DR PO SCH (08:22)
[2018-04-02] MEDS: LACTULOSE 10 G/15 ML UDC (PYXIS) PO PRN (08:22)
[2018-04-02] MEDS: AMLODIPINE BESYLATE 5 MG TABLET PO SCH (08:23)
[2018-04-02] MEDS ORDERED: BISACODYL SUPP (10 MG) 10 MG/SUPP.RECT SUPP.RECT RC PRN (08:30)
--- NOTE | 2018-04-02 10:15 | NUR ---
MS1/RN ROUNDS - DR. HILLIARD UPDATED PT'S CONDITION. PT SEEN & EXAMINED BY DR. HILLIARD, NO NEW ORDERS RECEIVED AT THIS TIME. ON GOING MONITORING.
--- NOTE | 2018-04-02 10:22 | NUR ---
MS1/RN BOWEL MOVEMENT PT PASSED MODERATE AMOUNT BOWEL AFTER SEVERAL DAYS OF CONSTIPATION. MONITORING.
[2018-04-02 12:00] VITALS: BP 93/39
[2018-04-02] MEDS: HYDROMORPHONE HCL 2 MG TABLET PO PRN ×2 (12:26→19:56)
[2018-04-02] MEDS: IPRATROPIUM NEB FS 0.5 MG/2.5 ML AMPUL.NEB NEB PRN (12:39)
[2018-04-02 16:00] VITALS: BP 108/69
[2018-04-02] MEDS: RIVAROXABAN 10 MG TABLET PO SCH (16:42)
--- NOTE | 2018-04-02 17:30 | NUR ---
MS1/RN AFTERNOON ROUNDS CHEST TUBE CHAMBER STILL BUBBLING, NO ADDITIONAL OUTPUT. PT HAD A TOTAL OF 3 BOWEL MOVEMENT AT THIS TIME. NO ACUTE CHANGE OF CONDITION. ON GOING MONITORING.
--- NOTE | 2018-04-02 19:23 | NUR ---
MS1/RN AM SHIFT END NOTES ALL NEEDS MET. NO ACUTE CHANGE OF CONDITION NOTED DURING THE SHIFT. RIGHT CHEST TUBE INTACT. PT ENDORSED TO PM NURSE TO CONTINUE CARE. CL WITHIN REACHED AND SAFETY MAINTAINED.
[2018-04-02 20:00] VITALS: BP 109/67
[2018-04-02] MEDS: ATORVASTATIN 10 MG TABLET PO SCH (21:21)
[2018-04-02] MEDS: TAMSULOSIN 0.4 MG CAP.SR.24H PO SCH (21:21)
[2018-04-03] MEDS: ALBUTEROL FS 2.5 MG/0.5 ML VIAL.NEB NEB SCH ×4 (01:30→19:30)
[2018-04-03 04:00] VITALS: BP_SYST 101; BP_SYST 91; BP_DIAS 52; BP_DIAS 66
--- NOTE | 2018-04-03 07:10 | NUR ---
MS RN OPENING NOTES MS RN OPENING NOTES RECEIVED PT IN BED, ALERT AND ORIENTED X4, NO SOB, AFEBRILE WITH INTACT CHEST TUBE WITH SEROSANGUINOUS DRAIN, STILL NOTED BUBBLING. AVAILABLE AT BEDSIDE: VASELINE GAUZE, 4X4 GAUZE. SCISSORS. AND TAPE. WITH C/O ACHING PAIN ON CHEST TUBE SITE WITH PAIN SCALE OF 7/10 AGGREVATED WHEN CHANGING POSITION, WILL ADMINISTER PAIN MEDS ORDERED, BED IN LOW AND LOCKED POSITION, CALL LIGHT WITHIN REACH, WILL KEEP MONITORING,
--- NOTE | 2018-04-03 07:52 | NUR ---
RT PATIENT AWAKE, ALERT, ZERO SOB, PATIENT REFUSED HHN TX.
[2018-04-03 08:00] VITALS: BP 110/72
[2018-04-03] MEDS: PANTOPRAZOLE 40 MG TABLET.DR PO SCH (08:50)
[2018-04-03] MEDS: FERROUS SULFATE (325 MG) 325 MG/TAB TABLET PO SCH ×2 (08:50→16:11)
[2018-04-03] MEDS: DOCUSATE SODIUM 100 MG CAPSULE PO SCH ×2 (08:50→16:11)
[2018-04-03] MEDS: AMLODIPINE BESYLATE 5 MG TABLET PO SCH (08:51)
[2018-04-03] MEDS: HYDROMORPHONE HCL 2 MG TABLET PO PRN ×2 (08:52→15:29)
[2018-04-03 12:00] VITALS: BP 112/72
[2018-04-03 16:00] VITALS: BP 112/68
--- NOTE | 2018-04-03 16:00 | NUR ---
MS RN NOTES PT IS FOR TRANSFER TO [facility] 2ND FLOOR ROOM 206 BED 2, PT MADE AWARE AND AGREED, GAVE REPORT TO MS END FLOOR RN CATE. PER CHARGE NURSE PT WILL BE TRANSFER AT 1930
[2018-04-03] MEDS: RIVAROXABAN 10 MG TABLET PO SCH (16:12)
--- NOTE | 2018-04-03 19:00 | NUR ---
MS RN CLOSING NOTES PT IN STABLE CONDITION, NO ACUTE CHANGES NOTED WITHIN THE SHIFT, ALL SAFETY MEASURES OBSERVED, CALL LIGHT WITHIN REACH, ALL NEEDS ATTENDED, STILL FOR TRANSFER TO 2ND FLOOR, ENDORSED TO INTERACTIVE WEB DEVELOPER NURSE SURAJ FOR CONTINUITY OF CARE WHILE STILL ON THE FLOOR
[2018-04-03 20:00] VITALS: BP 110/63
--- NOTE | 2018-04-03 20:10 | NUR ---
RN MS NOTES, PATIENT TRANSFERRED TO [facility] 2ND FLOOR AT THIS TIME, AND PLACED IN ROOM 206-B, ENDORSE TO NURSE, PATIENT IN STABLE CONDITION AT THIS TIME.
--- NOTE | 2018-04-03 20:11 | NUR ---
MS RN OPENING NOTES RECEIVED PT IN BED, ALERT AND ORIENTED X4, NO SOB, OR ACUTE DISTRESS NOTED AT THIS TIME, AFEBRILE, CHEST TUBE WITH SEROSANGUINEOUS DRAIN, STILL NOTED BUBBLING AT BEDSIDE, NO C/O PAIN AT THIS TIME, REPORT GIVEN BY PRIOR SHIFT TO [facility] FLOOR 2, PATIENT IS GOING TO BE TRANSFER SOON, BED IN LOW AND LOCKED POSITION, CALL LIGHT WITHIN REACH, WILL CONTINUE TO MONITOR CLOSELY. Addendum: 04/03/18 at 2016 by SURAJ CARPENTER RN AT 1929
--- NOTE | 2018-04-03 20:15 | NUR ---
MS RN INITIAL NOTE PT WAS TRANSFERRED FROM [facility]. A/O X3 ABLE TO MAKE NEEDS KNOWN. NO SIGNS OF SOB OR DISTRESS, BREATHING EVENLY AND UNLABORED ON RA. CHEST TUBE PRESENT, BUBBLES NOTED IN CHAMBER. NO IV ACCESS, MD AWARE. COMPLAINTS OF PAIN ON CHEST TUBE SIDE. PT ORIENTED TO ROOM. BED IS IN LOW AND LOCKED POSITION, CALL LIGHT WITHIN REACH. WILL CONTINUE TO MONITOR PT.
[2018-04-03] MEDS: oxyCODONE IR immediate release 5 MG PO PRN (20:34)
[2018-04-03] MEDS: ATORVASTATIN 10 MG TABLET PO SCH (21:07)
[2018-04-03] MEDS: TAMSULOSIN 0.4 MG CAP.SR.24H PO SCH (21:07)
[2018-04-03] MEDS: ZOLPIDEM TARTRATE 10 MG TABLET PO PRN (21:53)
[2018-04-04] MEDS: ALBUTEROL FS 2.5 MG/0.5 ML VIAL.NEB NEB SCH ×4 (01:30→19:56)
[2018-04-04] MEDS: ACETAMINOPHEN 325 MG TABLET PO PRN (06:05)
--- NOTE | 2018-04-04 06:08 | NUR ---
tylenol given as ordered for c/o pain around chest tube. will cont to monitor ,
--- NOTE | 2018-04-04 07:20 | NUR ---
MS RN CLOSING NOTE PT IS IN BED RESTING. CHEST TUBE IN PLACE, BUBBLES IN CHAMBER. NO SIGNS OF SOB OR DISTRESS, BREATHING EVENLY AND UNLABORED ON RA. NO ACUTE CHANGES THROUGHOUT THE SHIFT. ALL NEEDS WERE ANTICIPATED AND MET. BED IS IN LOW AND LOCKED POSITION, CALL LIGHT WITHIN REACH. WILL ENDORSE TO DAYSHIFT.
--- NOTE | 2018-04-04 07:30 | NUR ---
RN OPENING NOTES RECEIVED PATIENT IN BED RESTING. A/O X3, ABLE TO MAKE NEEDS KNOWN. NO SIGNS OF SOB OR DISTRESS, BREATHING EVENLY AND UNLABORED ON RA. CHEST TUBE PRESENT, BUBBLES NOTED IN CHAMBER. NO IV PRESENT, MD AWARE PER NIGHT RN. KEPT PATIENT SAFE AND COMFORTABLE. BED IS IN LOW AND LOCKED POSITION, SIDERAILS UPX2, CALL LIGHT WITHIN REACH. WILL CONTINUE TO MONIOTR ACCORDINGLY.
[2018-04-04 08:00] VITALS: BP 95/50
--- NOTE | 2018-04-04 08:00 | NUR ---
RN NOTES DR MELGOZA ON BEDSIDE CHECKING ON PATIENT AND HIS CHEST TUBE. NOTIFIED REGARDING THE BUBBLES. PER MD, IT'S NOTHING TO WORRY ABOUT UNLESS ITS INTERMITTENT BUBBLING. MD CLAMPED THE TUBES AND ORDERED XRAY.
[2018-04-04] MEDS: DOCUSATE SODIUM 100 MG CAPSULE PO SCH ×2 (09:00→17:00)
[2018-04-04] MEDS: AMLODIPINE BESYLATE 5 MG TABLET PO SCH (09:00)
[2018-04-04] MEDS: FERROUS SULFATE (325 MG) 325 MG/TAB TABLET PO SCH ×2 (09:03→17:05)
[2018-04-04] MEDS: PANTOPRAZOLE 40 MG TABLET.DR PO SCH (09:04)
[2018-04-04] MEDS: LACTULOSE 10 G/15 ML UDC (PYXIS) PO PRN (10:07)
[2018-04-04] MEDS: HYDROMORPHONE HCL 2 MG TABLET PO PRN (13:03)
[2018-04-04 16:00] VITALS: BP 130/75
[2018-04-04] MEDS: RIVAROXABAN 10 MG TABLET PO SCH (17:07)
--- NOTE | 2018-04-04 17:30 | NUR ---
RN NOTES DR MELGOZA ON BEDSIDE. REMOVED CHEST TUBE. INCISION SEALED WITH GAUZE AND TAPE. PATIENT TOLERATED WELL. WILL CONTINUE TO MONITOR.
--- NOTE | 2018-04-04 19:30 | NUR ---
RN NOTES RECEIVED PATIENT IN BED AWAKE, AO X 3, ABLE TO MAKE NEEDS KNOWN. NO ACUTE DISTRESS NOTED. MONITORED FOR PAIN. NO IV SITE. SAFETY REMINDERS GIVEN. ON LOW BED WITH BILATERAL UPPER SIDE RAILS UP. CALL BARTH WITHIN EASY REACH. WILL CONTINUE TO MONITOR.
--- NOTE | 2018-04-04 19:36 | NUR ---
RN CLOSING NOTES PATIENT IN STABLE CONDITION. ALL NEEDS ATTENDED AND PROVIDED. KEPT PATIENT SAFE AND COMFORTABLE. BED IN LOW/LOCKED POSITION, SIDERAILS UPX2, CALL LIGHT IN REACH, ENDORSED TO NIGHT RN FOR KATHIA.
[2018-04-04 20:00] VITALS: BP 125/71
[2018-04-04] MEDS: oxyCODONE IR immediate release 5 MG PO PRN (20:01)
[2018-04-04] MEDS: ATORVASTATIN 10 MG TABLET PO SCH (21:24)
[2018-04-04] MEDS: ZOLPIDEM TARTRATE 10 MG TABLET PO PRN (21:24)
[2018-04-04] MEDS: TAMSULOSIN 0.4 MG CAP.SR.24H PO SCH (22:00)
[2018-04-05] MEDS: ALBUTEROL FS 2.5 MG/0.5 ML VIAL.NEB NEB SCH ×3 (01:25→13:33)
[2018-04-05] MEDS: oxyCODONE IR immediate release 5 MG PO PRN (06:25)
[2018-04-05 06:31] LABS: BASOPHILS % (AUTO) 0.4 % (0.0-2.0); EOSINOPHILS % (AUTO) 1.2 % (0.0-6.0); HEMATOCRIT 23 % (39-51); HEMOGLOBIN 7.4 g/dL (13.5-17.5); LYMPHOCYTES # (AUTO) 1.4 /CMM (0.8-4.8); LYMPHOCYTES % (AUTO) 11.5 % (20.0-44.0); MEAN CORPUSCULAR HGB CONC 32 g/dl (31.0-36.0); MEAN CORPUSCULAR VOLUME 78 fL (80-96); MONOCYTES # (AUTO) 1.1 /CMM (0.1-1.30); MONOCYTES % (AUTO) 9.5 % (2.0-12.0); NEUTROPHILS # (AUTO) 9.4 /CMM (1.8-8.9); NEUTROPHILS % (AUTO) 77.4 % (43.0-81.0); PLATELET COUNT (AUTO) 560 /CMM (150-450); RDW COEFFICIENT OF VARIATION 15.9 (11.5-15.0); RED BLOOD CELL COUNT(AUTO) 2.94 MIL/uL (4.5-6.0)
--- NOTE | 2018-04-05 06:34 | NUR ---
RN NOTES PATIENT IN BED WITH EYES CLOSED, EASILY AROUSABLE. S/P CHEST TUBE REMOVAL; DRESSING INTACT; NO BLEEDING NOTED. DUE MED GIVEN WITH NO ASE NOTED. NEEDS ATTENDED. SAFETY PRECAUTIONS AND COMFORT MEASURES IN PLACE. WILL GIVE REPORT TO DAY SHIFT FOR CONTINUITY OF CARE.
[2018-04-05 06:49] LABS: CALCIUM, SERUM 9.1 mg/dL (8.5-10.1); CREATININE 0.8 mg/dL (0.6-1.3); MAGNESIUM 2.1 mg/dL (1.8-2.4); PHOSPHORUS 4.6 mg/dL (2.5-4.9); POTASSIUM 4.3 mmol/L (3.5-5.1)
--- NOTE | 2018-04-05 07:35 | NUR ---
RN OPENING NOTES RECEIVED PT. PT IS STABLE AND RESTING IN BED. A/OX3. NO S/S OF RESP DISTRESS OR SOB. PT C/O PAIN 01/14 HOWEVER STATES THAT IT IS TOLERABLE FOR NOW. PT CLEARED BY DR. MELGOZA FOR D/C, WILL F/U WITH CASE MANAGEMENT REGARDING SNF PLACEMENT. SAFETY MEASURES IN PLACE, CALL LIGHT WITHIN REACH. WILL CONTINUE TO MONITOR.
[2018-04-05 08:00] VITALS: BP_SYST 110; BP_SYST 127; BP_DIAS 49; BP_DIAS 72
[2018-04-05] MEDS: PANTOPRAZOLE 40 MG TABLET.DR PO SCH (08:34)
[2018-04-05] MEDS: FERROUS SULFATE (325 MG) 325 MG/TAB TABLET PO SCH ×2 (08:34→16:46)
[2018-04-05] MEDS: DOCUSATE SODIUM 100 MG CAPSULE PO SCH ×2 (08:34→16:46)
[2018-04-05] MEDS: AMLODIPINE BESYLATE 5 MG TABLET PO SCH (08:34)
[2018-04-05] MEDS: HYDROMORPHONE HCL 2 MG TABLET PO PRN ×2 (12:19→16:47)
[2018-04-05 16:00] VITALS: BP 117/70
[2018-04-05] MEDS: RIVAROXABAN 10 MG TABLET PO SCH (16:48)
--- NOTE | 2018-04-05 18:20 | NUR ---
DISCHARGE NOTE PT DISCHARGED TO [facility]. VSS, PT HAS NO C/O PAIN OR RESP DISTRESS. SKIN IS INTACT. DISCHARGE TEACHING PERFORMED, PT VERBALIZES UNDERSTANDING OF TEACHING. PT HAS NO IV ACCESS AT THIS TIME. ID BAND REMOVED. ALL DC PAPERWORK SIGNED, COPIED AND PLACED IN CHART. PERSONAL MEDICATIONS RETURNED TO PT. REPORT CALLED AND GIVEN TO NATTY OF [facility]. PT LEFT HOSPITAL IN AMBULANCE WITH PARAMEDICS.
== END 2018-04-05 18:10 | DRG 824 ==
LOC: ER 10:58 → TELE1 13:31 → TELE 03-18 05:52 → MED 03-18 09:52 → ICU 03-24 09:19 → TELE-TD 03-25 15:07 → TELE1 03-27 11:01 → MEDSG1 03-30 12:01 → MEDSG2 04-03 19:54
PROVIDERS: ADMIT Nurse Practitioner Acute Care; ATTEND Nurse Practitioner Acute Care
PROC: 0W993ZX Drainage of Right Pleural Cavity, Percutaneous Approach, Diagnostic (ICD-10-PCS; 2018-03-20)
PROC: 0BC Respiratory System, Extirpation (ICD-10-PCS; 2018-03-24)
PROC: 0BCC4ZZ Extirpation of Matter from Right Upper Lung Lobe, Percutaneous Endoscopic Approach (ICD-10-PCS; 2018-03-24)
PROC: 0BC Respiratory System, Extirpation (ICD-10-PCS; 2018-03-24)
PROC: 07B74ZX Excision of Thorax Lymphatic, Percutaneous Endoscopic Approach, Diagnostic (ICD-10-PCS; 2018-03-24)
PROC: 0W9940Z Drainage of Right Pleural Cavity with Drainage Device, Percutaneous Endoscopic Approach (ICD-10-PCS; 2018-03-24)
PROC: 0BBN4ZX Excision of Right Pleura, Percutaneous Endoscopic Approach, Diagnostic (ICD-10-PCS; 2018-03-24)
PROC: [UNRECOGNIZED PROCEDURE] (2018-03-24)
PROC: 0BCF4ZZ Extirpation of Matter from Right Lower Lung Lobe, Percutaneous Endoscopic Approach (ICD-10-PCS; principal; 2018-03-24 07:30)
DX: C92.10 Chronic myeloid leukemia, BCR/ABL-positive, not having achieved remission (principal); J90 Pleural effusion, not elsewhere classified; E87.1 Hypo-osmolality and hyponatremia; F17.210 Nicotine dependence, cigarettes, uncomplicated; D50.9 Iron deficiency anemia, unspecified; D63.8 Anemia in other chronic diseases classified elsewhere; J98.19 Other pulmonary collapse; J98.11 Atelectasis; J44.9 Chronic obstructive pulmonary disease, unspecified; D47.3 Essential (hemorrhagic) thrombocythemia; I25.10 Atherosclerotic heart disease of native coronary artery without angina pectoris; T45.1X5A Adverse effect of antineoplastic and immunosuppressive drugs, initial encounter; Y92.009 Unspecified place in unspecified non-institutional (private) residence as the place of occurrence of the external cause; Z86.718 Personal history of other venous thrombosis and embolism; Z86.711 Personal history of pulmonary embolism; Z79.01 Long term (current) use of anticoagulants; N40.0 Benign prostatic hyperplasia without lower urinary tract symptoms; E78.5 Hyperlipidemia, unspecified; I10 Essential (primary) hypertension; F41.9 Anxiety disorder, unspecified; K59.00 Constipation, unspecified; E78.00 Pure hypercholesterolemia, unspecified; F31.9 Bipolar disorder, unspecified; E53.8 Deficiency of other specified B group vitamins
CPT/HCPCS: 36415; 71045-TC; 71250-TC; 76604-TC; 76942-TC; 80048-TC; 80053-TC; 80061-TC; 82272-TC; 82728-TC; 82746; 82784; 83540-TC; 83735-TC; 84100-TC; 84153-TC; 84154-TC; 84155; 84165; 84443-TC; 84484-TC; 85025-TC; 85610-TC; 85730-TC; 86334; 86850-TC; 86921-TC; 87070-TC; 87075-TC; 87081-TC; 87116; 87206; 88305-TC; 88312-TC; A4606; A6253; A6402; A6403; C1751; J0690; J1100; J1170; J1885; J2405; J2704; J2710; J3480; J3490; L3908; Z7610

== ENCOUNTER 2018-04-27 13:43 | Inpatient (IN) | payer MEDICARE, OTHER ==
[~2018-04-27] VITALS: Ht 182.9 cm; Wt 88.5 kg
[2018-04-27] VITALS (7 sets, daily range): BP systolic 97–126; BP diastolic 46–69
[~2018-04-27 13:43] MED LIST changes: +BISA5TAB10 PO; -LEVO750T21 PO; +OXYC5CAP18 PO; +PANT40TA2 PO; +TAMS-12 PO
--- NOTE | 2018-04-27 13:45 | NUR ---
FROM DR MUNROE'S OFFICE:SOB, Hgb=7.1. Hx OF HEMORRHAGIC PLEURAL EFFUSION. NAD NOTED. PT AAO X3, RR EVEN AND UNLABORED. PENDING MD RUIZ.
[2018-04-27 14:42] LABS: BASOPHILS # (AUTO) 0.2 /CMM (0.0-0.2); BASOPHILS % (AUTO) 1.3 % (0.0-2.0); EOSINOPHILS % (AUTO) 1.9 % (0.0-6.0); HEMATOCRIT 23 % (39-51); HEMOGLOBIN 7.4 g/dL (13.5-17.5); LYMPHOCYTES # (AUTO) 1.1 /CMM (0.8-4.8); LYMPHOCYTES % (AUTO) 9.5 % (20.0-44.0); MEAN CORPUSCULAR HGB CONC 33 g/dl (31.0-36.0); MEAN CORPUSCULAR VOLUME 73 fL (80-96); MONOCYTES # (AUTO) 0.7 /CMM (0.1-1.30); MONOCYTES % (AUTO) 6.1 % (2.0-12.0); NEUTROPHILS # (AUTO) 9.8 /CMM (1.8-8.9); NEUTROPHILS % (AUTO) 81.2 % (43.0-81.0); PLATELET COUNT (AUTO) 704 /CMM (150-450); RDW COEFFICIENT OF VARIATION 16.8 (11.5-15.0); RED BLOOD CELL COUNT(AUTO) 3.12 MIL/uL (4.5-6.0)
[2018-04-27] MEDS ORDERED: BISA5TAB10 PO (14:44)
[2018-04-27] MEDS ORDERED: RIVA10TA PO (14:44)
[2018-04-27] MEDS ORDERED: PANT40TA2 PO (14:44)
[2018-04-27] MEDS ORDERED: TAMS-12 PO (14:44)
[2018-04-27] MEDS ORDERED: OXYC10TA49 PO (14:44)
[2018-04-27] MEDS ORDERED: ZOLP10TA2 PO (14:45)
[2018-04-27 14:48] LABS: CALCIUM, SERUM 9.2 mg/dL (8.5-10.1); CREATININE 1.1 mg/dL (0.6-1.3); POTASSIUM 4.3 mmol/L (3.5-5.1)
[2018-04-27 14:53] LABS: INR 1.05 (0.85-1.15)
[2018-04-27 14:54] LABS: ALBUMIN 2.5 g/dL (3.4-5.0); BILIRUBIN,DIRECT 0.2 mg/dL (0.0-0.2); BILIRUBIN,TOTAL 0.6 mg/dL (0.2-1.0); TOTAL PROTEIN, SERUM 7.8 g/dL (6.4-8.2)
[2018-04-27 15:52] LABS: EOSINOPHILS % (MANUAL) 2 % (0-4); LYMPHOCYTES % (MANUAL) 14 % (16-48); MONOCYTES % (MANUAL) 11 % (0-11.0); NEUTROPHILS % (MANUAL) 73 (42-76)
--- NOTE | 2018-04-27 17:11 | NUR ---
REPORT GIVEN TO REBECCA MARSH
--- NOTE | 2018-04-27 17:30 | NUR ---
PATIENT ARRIVED TO THE UNIT VIA WHEELCHAIR FROM ER. IN NO APPARENT DISTRESS. NO SHORTNESS OF BREATH AT THIS TIME. IV LINE IS INTACT AND PATENT. PATIENT IS ALERT AND ORIENTED X4. WILL CONTINUE TO MONITOR. INFORMED DR HEREDIA THAT PATIENT HAS ARRIVED TO THE UNIT. AWAITING ORDERS. BEDSIDE RAILS ARE UPX2. BED IS LOCKED AND LOWERED. CALL LIGHT IS WITHIN REACH. WILL CONTINUE TO MONITOR.
[2018-04-27] MEDS ORDERED: MAGNESIUM HYDROXIDE 30 ML UDC PO PRN (18:00)
[2018-04-27] MEDS ORDERED: MAG HYDROX/AL HYDROX/SIMETH 30 ML UDC PO PRN (18:00)
[2018-04-27] MEDS ORDERED: ONDANSETRON HCL/PF 4 MG/2 ML VIAL IVP PRN (18:00)
[2018-04-27] MEDS ORDERED: ZOLPIDEM TARTRATE 5 MG TABLET PO PRN (18:00)
[2018-04-27] MEDS ORDERED: Z GUARD REMEDY 2 OZ OINT TP PRN (18:00)
[2018-04-27] MEDS ORDERED: ACETAMINOPHEN 325 MG TABLET PO PRN (18:00)
[2018-04-27] MEDS: HYDROCODONE/APAP 5/325MG 1 EACH TABLET PO PRN (18:16)
[2018-04-27] MEDS ORDERED: FEE PK DOSING 1 MIN EA MC ONE (18:23)
[2018-04-27] MEDS ORDERED: oxyCODONE IR immediate release 5 MG PO PRN ×2 (18:30)
[2018-04-27 18:37] LABS: BASOPHILS # (AUTO) 0.1 /CMM (0.0-0.2); HEMATOCRIT 22 % (39-51); LYMPHOCYTES # (AUTO) 1.3 /CMM (0.8-4.8); LYMPHOCYTES % (AUTO) 10.7 % (20.0-44.0); MEAN CORPUSCULAR HGB CONC 30 g/dl (31.0-36.0); MEAN CORPUSCULAR VOLUME 76 fL (80-96); MONOCYTES # (AUTO) 1.2 /CMM (0.1-1.30); MONOCYTES % (AUTO) 9.5 % (2.0-12.0); NEUTROPHILS # (AUTO) 9.3 /CMM (1.8-8.9); NEUTROPHILS % (AUTO) 75.8 % (43.0-81.0); PLATELET COUNT (AUTO) 655 /CMM (150-450); RDW COEFFICIENT OF VARIATION 17.9 (11.5-15.0); RED BLOOD CELL COUNT(AUTO) 2.94 MIL/uL (4.5-6.0); WHITE BLOOD COUNT (AUTO) 12.3 K/uL (4.3-11.0)
[2018-04-27 18:59] LABS: HEMOGLOBIN 6.8 g/dL (13.5-17.5)
--- NOTE | 2018-04-27 19:20 | NUR ---
MS RN CLOSING NOTES PATIENT IS IN STABLE CONDITION. IN NO APPARENT DISTRESS. BEDSIDE RAILS ARE UPX2. BED IS LOCKED AND LOWERED. CALL LIGHT IS WITHIN REACH. IV LINE IS INTACT AND PATENT. WILL ENDORSE CARE TO SIGNS CLEANER NURSE FOR KATHIA.
--- NOTE | 2018-04-27 19:30 | NUR ---
MS RN INITIAL NOTES: Patient received sitting up in bed. Alert, oriented x 4. Breathing even and unlabored. Not in any distress. Patient ambulatory; seen walking in the hallway. IV access in R) hand, gauge 20, intact and patent. Patient for blood transfusion x 1PRBC. Patient aware, consent signed. Call church within reach. Bed in low, locked position. Patient stable as endorsed by the AM shift RN.
[2018-04-27] MEDS: BISACODYL (5 MG) 5 MG TABLET.DR PO PRN (19:33)
--- NOTE | 2018-04-27 21:00 | NUR ---
MS RN NOTES: Patient for blood transfusion; Hemoglobin 6.8g/dL. Patient to receive transfusion of PRBC over 4hrs according to orders by Dr. Villegas. Blood bag checked by Martha FERNANDEZ and verified information on blood slip. Baseline vital signs taken and documented. Blood transfusion started at 21:04hrs
--- NOTE | 2018-04-27 21:19 | NUR ---
MS RN NOTES: Patient's blood transfusion ongoing. No reports of flank pain or discomfort, no itchiness. Vital signs taken and documented. Patient tolerating transfusion with no reaction.
--- NOTE | 2018-04-27 21:34 | NUR ---
MS RN NOTES: Patient's blood transfusion still ongoing. No reports of pain, itchiness or SOB. Patient tolerating transfusion with no reaction. Vital signs taken and recorded.
[2018-04-27] MEDS: TAMSULOSIN 0.4 MG CAP.SR.24H PO SCH (21:52)
[2018-04-27] MEDS: ATORVASTATIN 10 MG TABLET PO SCH (21:52)
--- NOTE | 2018-04-27 21:52 | NUR ---
RN NOTES: Patient refused to take atorvastatin and tamsulosin. Explained the risks of not taking the medication, but patient still refused to take it.
[2018-04-27] MEDS: ZOLPIDEM TARTRATE 10 MG TABLET PO PRN (22:07)
--- NOTE | 2018-04-27 23:05 | NUR ---
MS RN NOTES: Patient still in ongoing transfusion. Patient sleeping as of the moment. No signs of distress or reaction noted. Patient tolerating transfusion. Vital signs taken and recorded
[2018-04-28 00:19] VITALS: BP 109/62
--- NOTE | 2018-04-28 00:19 | NUR ---
MS RN NOTES: Blood transfusion done. No distress noted. No complaints voiced. Patient tolerated the transfusion well
[2018-04-28] MEDS: HYDROCODONE/APAP 5/325MG 1 EACH TABLET PO PRN ×4 (04:26→21:10)
[2018-04-28 06:06] LABS: BASOPHILS % (AUTO) 0.3 % (0.0-2.0); EOSINOPHILS % (AUTO) 3.3 % (0.0-6.0); HEMATOCRIT 25 % (39-51); LYMPHOCYTES % (AUTO) 10.2 % (20.0-44.0); MEAN CORPUSCULAR HGB CONC 32 g/dl (31.0-36.0); MEAN CORPUSCULAR VOLUME 77 fL (80-96); MONOCYTES % (AUTO) 10.5 % (2.0-12.0); NEUTROPHILS # (AUTO) 7.3 /CMM (1.8-8.9); NEUTROPHILS % (AUTO) 75.7 % (43.0-81.0); PLATELET COUNT (AUTO) 641 /CMM (150-450); RDW COEFFICIENT OF VARIATION 17.8 (11.5-15.0); RED BLOOD CELL COUNT(AUTO) 3.27 MIL/uL (4.5-6.0); WHITE BLOOD COUNT (AUTO) 9.7 K/uL (4.3-11.0)
[2018-04-28 06:12] LABS: CREATININE 0.8 mg/dL (0.6-1.3); MAGNESIUM 2.3 mg/dL (1.8-2.4); PHOSPHORUS 3.4 mg/dL (2.5-4.9); POTASSIUM 4.4 mmol/L (3.5-5.1)
--- NOTE | 2018-04-28 06:24 | NUR ---
MS RN CLOSING NOTES: Patient in bed, still asleep, but easily arousable. Not in acute distress. Alert, oriented x 4. Breathing even and unlabored. Patient able to make needs known. No complaints of pain or discomfort as of this time. All needs attended to. All due medications given as ordered. Call church within reach. Bed in low locked position. Will endorse KATHIA to AM shift RN.
--- NOTE | 2018-04-28 07:46 | NUR ---
RN OPENING NOTES PATIENT RECEIVED SLEEPING IN BED, EASILY AROUSABLE DURING CARE, A/0 X4 RESPIRATIONS EVEN AND UNLABORED.RESPIRATIONS EVEN AND UNLABORED, DENIES ANY PAIN OR DISCOMFORT AT THIS TIME. DENIES ANY PAIN OR DISCOMFORT AT THIS TIME. IV ACCESS PATENT AND INTACT NO REDNESS OR INFILTRATION NOTED. SAFETY MEASURES IN PLACE, CALL LIGHT WITHIN EASY REACH WILL CONTINUE TO MONITOR
[2018-04-28 08:00] VITALS: BP 120/68
[2018-04-28] MEDS: AMLODIPINE BESYLATE 5 MG TABLET PO SCH (08:23)
[2018-04-28] MEDS: PANTOPRAZOLE 40 MG TABLET.DR PO SCH (08:23)
[2018-04-28] MEDS: FERROUS SULFATE (325 MG) 325 MG/TAB TABLET PO SCH ×2 (08:24→16:44)
[2018-04-28] MEDS: BISACODYL (5 MG) 5 MG TABLET.DR PO PRN (08:27)
--- NOTE | 2018-04-28 15:04 | NUR ---
RN NOTES/XARELTO PER DR. HEREDIA TO REVIEW WITH DR MUNROE REGARDING XARELTO ORDER PT WITH LOW H/H PER DR. MUNROE DC FOR NOW AND WILL REVIEW WHEN IT CAN BE RESTARTED
--- NOTE | 2018-04-28 15:20 | NUR ---
RN DISCHARGED NOTES PATIENT DISCHARGED TO [facility] IN STABLE CONDITION. ALERT AND RESPONSIVE TO TACTILE AND VERBAL STIMULI. [place] SPEAKING, NO C/O PAIN VOICED OR DISCHARGED. PT COOPERATIVE, CALMED AND QUIET MOST OF THE TIME TODAY. V/S TAKEN. PHOTOS OF SKIN TAKEN AND FILED ON CHART. ALL BELONGINGS ACCOUNTED FOR AND SIGNED FORM. MENTAL HEALTH COORDINATOR GREGG OF [facility] REQUESTED TO KEEP STUART IN PLACE, URINE OUT PUT NOTED CLEAR LIGHT YELLOW WITH NO HEMATURIA NOTED TODAY. PT UN-ABLE TO COMPREHEND WHEN HEALTH TEACHINGS AND DISCHARGE INSTRUCTIONS WERE GIVEN. PT LEFT UNIT VIA GURNEY AT 1505 IN NO ACUTE SIGNS OF DISTRESS. MD AND CHARGE NURSE AWARE OF DISCHARGE. Addendum: 04/28/18 at 1534 by WIN DUNNE RN ERROR: DISCHARGE NOTES IS FOR DIFFERENT PATIENT.
--- NOTE | 2018-04-28 15:40 | NUR ---
RN NOTE/ CONSULT ASKED DR. HEREDIA IF WANTS DR. MONSTER HUDDLESTON TO SEE PT WILL AWAIT RESPONSE PER DR. HOOK IF NO REPLY CAN SEE PT TOMORROW
[2018-04-28 16:00] VITALS: BP 115/66
[2018-04-28] MEDS ORDERED: RIVAROXABAN 10 MG TABLET PO SCH (17:00)
--- NOTE | 2018-04-28 18:45 | NUR ---
RN CLOSING NOTES PATIENT AWAKE ALERT AND ORIENTED, A/0 X4 RESPIRATIONS EVEN AND UNLABORED.RESPIRATIONS EVEN AND UNLABORED, DENIES ANY PAIN OR DISCOMFORT AT THIS TIME. DENIES ANY PAIN OR DISCOMFORT AT THIS TIME. IV ACCESS PATENT AND INTACT NO REDNESS OR INFILTRATION NOTED. SAFETY MEASURES IN PLACE, CALL LIGHT WITHIN EASY REACH WILL CONTINUE TO MONITOR AND ENDORSE TO NEXT SHIFT FOR CONTINUITY OF CARE
--- NOTE | 2018-04-28 19:20 | NUR ---
MS RN OPENING NOTE RECEIVE PATIENT AWAKE IN BED, A/O X 3 NO FACIAL GRIMACING NOTED FOR PAIN. NO SOB OR DISTRESS NOTED, CALL LIGHT WITHIN REACH. SAFETY MEASURES IMPLEMENTED. WILL CONTINUE TO MONITOR THROUGHOUT SHIFT.
[2018-04-28 20:00] VITALS: BP 119/73
[2018-04-28] MEDS: TAMSULOSIN 0.4 MG CAP.SR.24H PO SCH (21:09)
[2018-04-28] MEDS: ATORVASTATIN 10 MG TABLET PO SCH (21:09)
[2018-04-28] MEDS: ZOLPIDEM TARTRATE 10 MG TABLET PO PRN (21:10)
--- NOTE | 2018-04-28 21:21 | NUR ---
MS RN NOTES FLOMAX AND LIPITOR DUE AT NIGHT REFUSED BY THE PT NON ADMINISTRATION DESPITE EXPLAINING RISKS AND BENEFITS OFFERED 3 TIMES PT STILL REFUSED MEDICATION HOSPITALIST MADE AWARE PT A/O X 4, PER PT WANTS HIS PAIN PILL AND SLEEPING PILL.
--- NOTE | 2018-04-28 23:50 | NUR ---
MS RN NOTES PATIENT CALLED ME PER PT HE DEFECATED IN THE TOILET ALREADY UNABLE TO OBATIN SPECIMEN EDUCATED THAT I CANNOT GET THE SPECIMEN ANYMORE BECAUSE THE STOOL IS CONTAMINATED, EDUCATED HIM TO PUT THE SPECIMEN IN THE HAT AND CUP VERBALIZED UNDERSTANDING WE WILL TRY AGAIN LATER.
--- NOTE | 2018-04-29 06:17 | NUR ---
MS RN CLOSING NOTES PT COMFORTABLY ASLEEP AND EASILY AWAKEN, ITOLERATING ROOM AIR 98% IN STABLE CONDITION. RESPIRATION EVEN AND UNLABORED. KEPT CLEAN AND DRY AND COMFORTABLE, ALL NURSING CARE RENDERED. NEEDS ATTENDED AND ANTICIPATED, GOOD SKIN CARE PROVIDED. FREQUENT VISUAL CHECK DONE FOR SAFETY EVERY 2 HOURS. ON LOW BED AT ALL TIMES TO ENSURE SAFETY. SAFE HAZARD FREE ENVIRONMENT PROVIDED. NO COMPLAINS OF PAIN.CALL LIGHT WITHIN EASY TO REACH. WILL ENDORSE NEXT SHIFT CONTINUITY OF CARE.
[2018-04-29 06:26] LABS: BASOPHILS % (AUTO) 0.3 % (0.0-2.0); HEMATOCRIT 28 % (39-51); HEMOGLOBIN 8.8 g/dL (13.5-17.5); LYMPHOCYTES % (AUTO) 10.3 % (20.0-44.0); MEAN CORPUSCULAR HGB CONC 32 g/dl (31.0-36.0); MEAN CORPUSCULAR VOLUME 77 fL (80-96); MONOCYTES # (AUTO) 0.8 /CMM (0.1-1.30); MONOCYTES % (AUTO) 7.7 % (2.0-12.0); NEUTROPHILS # (AUTO) 7.9 /CMM (1.8-8.9); NEUTROPHILS % (AUTO) 78.7 % (43.0-81.0); PLATELET COUNT (AUTO) 628 /CMM (150-450); RDW COEFFICIENT OF VARIATION 17.3 (11.5-15.0); RED BLOOD CELL COUNT(AUTO) 3.61 MIL/uL (4.5-6.0)
[2018-04-29 06:53] LABS: CREATININE 0.8 mg/dL (0.6-1.3); POTASSIUM 4.4 mmol/L (3.5-5.1)
[2018-04-29 07:05] LABS: THYROID STIMULATING HORMONE 0.72 uIU/mL (0.358-3.74)
--- NOTE | 2018-04-29 07:30 | NUR ---
RN OPENING NOTES RECEIVED PATIENT SLEEPING IN BED, EASILY AROUSABLE, A/O X4. NO ACUTE DISTRESS, NO SOB. DENIES ANY PAIN OR DISCOMFORT AT THIS TIME. IV ACCESS PATENT AND INTACT. SAFETY MEASURES IN PLACE, BED IN LOW/LOCKED POSITION, SIDERAILS UP, CALL LIGHT WITHIN EASY REACH. WILL CONTINUE TO MONITOR ACCORDINGLY.
[2018-04-29] MEDS: PANTOPRAZOLE 40 MG TABLET.DR PO SCH (07:58)
[2018-04-29] MEDS: HYDROCODONE/APAP 5/325MG 1 EACH TABLET PO PRN ×3 (07:59→20:02)
[2018-04-29 08:00] VITALS: BP 119/71
[2018-04-29] MEDS: FERROUS SULFATE (325 MG) 325 MG/TAB TABLET PO SCH ×2 (08:00→16:40)
[2018-04-29] MEDS: AMLODIPINE BESYLATE 5 MG TABLET PO SCH (08:01)
[2018-04-29 16:00] VITALS: BP 113/68
--- NOTE | 2018-04-29 16:29 | NUR ---
OB SPECIMEN COLLECTED, CALLED LAB FOR PICKED UP
--- NOTE | 2018-04-29 18:46 | NUR ---
RN CLOSING NOTES PATIENT IN STABLE CONDITION. ALL NEEDS ATTENDED AND PROVIDED. KEPT PATIENT SAFE AND COMFORTABLE. BED IN LOW/LOCKED POSITION, SIDERAILS UPX2, CALL LIGHT IN REACH. WILL ENDORSED TO NIGHT RN FOR KATHIA.
--- NOTE | 2018-04-29 19:10 | NUR ---
MS RN OPENING NOTE RECEIVE PATIENT AWAKE IN BED, A/O X 3 STABLE NO FACIAL GRIMACING NOTED FOR PAIN. NO SOB OR DISTRESS NOTED, CALL LIGHT WITHIN REACH. SAFETY MEASURES IMPLEMENTED. WILL CONTINUE TO MONITOR THROUGHOUT SHIFT.
[2018-04-29 20:00] VITALS: BP 111/68
[2018-04-29] MEDS: TAMSULOSIN 0.4 MG CAP.SR.24H PO SCH (21:30)
[2018-04-29] MEDS: ATORVASTATIN 10 MG TABLET PO SCH (21:30)
[2018-04-29] MEDS: ZOLPIDEM TARTRATE 10 MG TABLET PO PRN (21:32)
[2018-04-29 22:43] LABS: OCCULT BLOOD STOOL NEGATIVE (NEGATIVE)
[2018-04-30] MEDS: HYDROCODONE/APAP 5/325MG 1 EACH TABLET PO PRN ×4 (03:29→21:35)
--- NOTE | 2018-04-30 06:28 | NUR ---
MS RN CLOSING NOTES ASLEEP AND EASILY AWAKEN, TOLERATING ROOM AIR 99% NO COMPLAIN OF PAIN, STABLE CONDITION. RESPIRATION EVEN AND UNLABORED. KEPT CLEAN AND DRY AND COMFORTABLE, ALL NURSING CARE RENDERED. NEEDS ATTENDED AND ANTICIPATED, GOOD SKIN CARE PROVIDED. FREQUENT VISUAL CHECK DONE FOR SAFETY EVERY 2 HOURS. ON LOW BED AT ALL TIMES TO ENSURE SAFETY. SAFE HAZARD FREE ENVIRONMENT PROVIDED. CALL LIGHT WITHIN EASY TO REACH. WILL ENDORSE NEXT SHIFT CONTINUITY OF CARE.
[2018-04-30 06:36] LABS: BASOPHILS % (AUTO) 0.5 % (0.0-2.0); EOSINOPHILS % (AUTO) 4.4 % (0.0-6.0); HEMATOCRIT 26 % (39-51); HEMOGLOBIN 8.2 g/dL (13.5-17.5); LYMPHOCYTES # (AUTO) 1.2 /CMM (0.8-4.8); LYMPHOCYTES % (AUTO) 11.9 % (20.0-44.0); MEAN CORPUSCULAR HGB CONC 31 g/dl (31.0-36.0); MEAN CORPUSCULAR VOLUME 77 fL (80-96); MONOCYTES # (AUTO) 0.8 /CMM (0.1-1.30); MONOCYTES % (AUTO) 7.7 % (2.0-12.0); NEUTROPHILS # (AUTO) 7.6 /CMM (1.8-8.9); NEUTROPHILS % (AUTO) 75.5 % (43.0-81.0); PLATELET COUNT (AUTO) 579 /CMM (150-450); RDW COEFFICIENT OF VARIATION 17.5 (11.5-15.0); RED BLOOD CELL COUNT(AUTO) 3.43 MIL/uL (4.5-6.0); WHITE BLOOD COUNT (AUTO) 10.1 K/uL (4.3-11.0)
[2018-04-30 06:49] LABS: CALCIUM, SERUM 9.2 mg/dL (8.5-10.1); CREATININE 0.9 mg/dL (0.6-1.3); POTASSIUM 3.9 mmol/L (3.5-5.1)
[2018-04-30 08:00] VITALS: BP 115/67
[2018-04-30] MEDS: FERROUS SULFATE (325 MG) 325 MG/TAB TABLET PO SCH ×2 (09:24→17:32)
[2018-04-30] MEDS: PANTOPRAZOLE 40 MG TABLET.DR PO SCH (09:24)
[2018-04-30] MEDS: AMLODIPINE BESYLATE 5 MG TABLET PO SCH (09:26)
[2018-04-30] MEDS: FOLIC ACID 1 MG TABLET PO SCH (13:57)
[2018-04-30 16:00] VITALS: BP 120/72
--- NOTE | 2018-04-30 19:42 | NUR ---
MS RN NOTES Patient received in bed, comfortable, easily arousable. Awake and verbally responsive. Not in any type of distress. No complaints of pain at the moment. Will continue to monitor and assess patient.
[2018-04-30 20:00] VITALS: BP 117/74
--- NOTE | 2018-04-30 20:16 | NUR ---
MS RN NOTES: PT WENT DOWN WITH RN, HUAN, TO GET SOMETHING AT VENDING MACHINE.
--- NOTE | 2018-04-30 20:19 | NUR ---
MS RN NOTES: PT BACK IN STABLE CONDITION. PT IN ROOM RESTING.
[2018-04-30] MEDS: ATORVASTATIN 10 MG TABLET PO SCH ×2 (21:04→21:20)
[2018-04-30] MEDS: TAMSULOSIN 0.4 MG CAP.SR.24H PO SCH ×2 (21:04→21:20)
--- NOTE | 2018-04-30 21:21 | NUR ---
MS RN - NON-ADMIN NOTES Patient refused flomax and lipitor. Explained risks vs benefits x3. Patient continue to refused. Patient stated, "I'll take those tomorrow. I just want something for pain and my ambien".
[2018-04-30] MEDS: ZOLPIDEM TARTRATE 10 MG TABLET PO PRN (21:33)
--- NOTE | 2018-05-01 05:30 | NUR ---
MS RN CLOSING NOTES Patient remained in bed, asleep, easily arousable. No complaints shortness of breath or any pain. Not in any type of distress. Patient stable through the night. Safety measures in place. Bed in lowest position with bed alarm on and call light within reach. Will continue to monitor patient
--- NOTE | 2018-05-01 05:50 | NUR ---
MS RN NOTES: PT WENT DOWNSTAIRS TO VENDING MACHINE WITH RN.
--- NOTE | 2018-05-01 06:00 | NUR ---
MS RN NOTES: PT BACK ON FLOOR IN STABLE CONDITION AFTER BUYING DRINK AND SNACK FROM VENDING MACHINE.
[2018-05-01 06:13] LABS: BASOPHILS # (AUTO) 0.1 /CMM (0.0-0.2); BASOPHILS % (AUTO) 0.9 % (0.0-2.0); EOSINOPHILS % (AUTO) 5.7 % (0.0-6.0); HEMATOCRIT 28 % (39-51); HEMOGLOBIN 8.7 g/dL (13.5-17.5); LYMPHOCYTES # (AUTO) 1.3 /CMM (0.8-4.8); LYMPHOCYTES % (AUTO) 14.4 % (20.0-44.0); MEAN CORPUSCULAR HGB CONC 31 g/dl (31.0-36.0); MEAN CORPUSCULAR VOLUME 77 fL (80-96); MONOCYTES # (AUTO) 0.6 /CMM (0.1-1.30); NEUTROPHILS # (AUTO) 6.3 /CMM (1.8-8.9); PLATELET COUNT (AUTO) 587 /CMM (150-450); RDW COEFFICIENT OF VARIATION 17.9 (11.5-15.0); RED BLOOD CELL COUNT(AUTO) 3.64 MIL/uL (4.5-6.0); WHITE BLOOD COUNT (AUTO) 8.7 K/uL (4.3-11.0)
[2018-05-01] MEDS: HYDROCODONE/APAP 5/325MG 1 EACH TABLET PO PRN ×3 (06:17→17:08)
[2018-05-01 06:32] LABS: CALCIUM, SERUM 9.3 mg/dL (8.5-10.1); CREATININE 0.9 mg/dL (0.6-1.3); POTASSIUM 4.4 mmol/L (3.5-5.1)
[2018-05-01 08:00] VITALS: BP 105/71
[2018-05-01] MEDS: FOLIC ACID 1 MG TABLET PO SCH (08:26)
[2018-05-01] MEDS: FERROUS SULFATE (325 MG) 325 MG/TAB TABLET PO SCH ×2 (08:26→17:07)
[2018-05-01] MEDS: PANTOPRAZOLE 40 MG TABLET.DR PO SCH (08:26)
[2018-05-01] MEDS: AMLODIPINE BESYLATE 5 MG TABLET PO SCH (08:27)
[2018-05-01 16:00] VITALS: BP 137/78
[2018-05-01] MEDS: BISACODYL (5 MG) 5 MG TABLET.DR PO PRN (17:07)
--- NOTE | 2018-05-01 19:30 | NUR ---
RN NOTES RECEIVED PT IN BED, ALERT AND ORIENTED X 3, NO SOB, BREATHING EVEN AND UNLABORED, IN NO ACUTE DISTRESS, DENIES PAIN AT THIS TIME. ALL PATIENT'S NEEDS ATTENDED TO. PLACED CALL LIGHT WITHIN EASY REACH. BED IN LOW POSITION AND LOCKED IN PLCAE. WILL CONTINUE TO MONITOR PT.
--- NOTE | 2018-05-01 19:35 | NUR ---
RN CLOSING NOTES PATIENT IN STABLE CONDITION. ALL NEEDS ATTENDED AND PROVIDED. KEPT PATIENT SAFE AND COMFORTABLE. BED IN LOW/LOCKED POSITION, SIDERAILS UPX2, CALL LIGHT IN REACH. ENDORSED TO NIGHT RN FOR KATHIA.
[2018-05-01] MEDS: ZOLPIDEM TARTRATE 10 MG TABLET PO PRN (19:57)
[2018-05-01 20:00] VITALS: BP 120/70
--- NOTE | 2018-05-01 20:41 | NUR ---
RN NOTE RADIOLOGIST AT PATIENT'S BEDSIDE. PT VERBALIZED THAT HE WANTS CXR TO BE DONE IN THE AM. EXPLAINED RISKS AND BENEFITS TO PT. INSISTS ON HAVING CXR IN THE AM. RESPECTED PT'S DECISION. WILL CONTINUE TO MONITOR PT.
[2018-05-01] MEDS: TAMSULOSIN 0.4 MG CAP.SR.24H PO SCH (22:00)
[2018-05-01] MEDS: ATORVASTATIN 10 MG TABLET PO SCH (22:00)
--- NOTE | 2018-05-01 22:32 | NUR ---
RN NOTES PATIENT REFUSED TO TAKE ATORVASTATIN AND FLOMAX, PER PT, HE DOESN'T TAKE THESE MEDICATION AT HOME. EXPLAINED RISKS AND BENEFITS TO PT X 3 BUT PT STILL REFUSED. WILL CONTINUE TO MONITOR PT.
[2018-05-02] MEDS: HYDROCODONE/APAP 5/325MG 1 EACH TABLET PO PRN ×5 (00:01→23:47)
--- NOTE | 2018-05-02 05:20 | NUR ---
RN NOTES PATIENT REQUESTED TO GO DOWN TO [place] TO GET SOMETHING FROM THE VENDING MACHINE. ACCOMPANIED PT. WENT BACK TO UNIT IN STABLE CONDITION.
--- NOTE | 2018-05-02 06:53 | NUR ---
RN CLOSING NOTES PT IN BED, AWAKE, ALERT AND ORIENTED X 4, NO SOB NOTED, BREATHING EVEN AND UNLABORED AND IN NO ACUTE DISTRESS. PT SLEPT WELL WITHIN THE SHIFT. ALL PATIENT'S NEEDS ATTENDED TO THROUGHOUT THE SHIFT. PLACED CALL LIGHT WITHIN EASY REACH. BED IN LOW POSITION AND LOCKED IN PLACE. WILL ENDORSE TO AM SHIFT NURSE FOR CONTINUITY OF CARE.
--- NOTE | 2018-05-02 07:10 | NUR ---
RN OPENING NOTES PT IN BED, AWAKE, ALERT AND ORIENTED X 4, NO SOB NOTED, BREATHING EVEN AND UNLABORED AND IN NO ACUTE DISTRESS, DENIES ANY PAIN OR DISCOMFORT. IV ACCESS PATENT AND INTACT, ALL DUE MEDS GIVEN ORDERED, NO ASE NOTED, ALL PATIENT'S NEEDS ATTENDED TO THROUGHOUT THE SHIFT. PLACED CALL LIGHT WITHIN EASY REACH. BED IN LOW POSITION AND LOCKED IN PLACE. WILL CONTINUE TO MONITOR
[2018-05-02 07:11] LABS: BASOPHILS # (AUTO) 0.1 /CMM (0.0-0.2); BASOPHILS % (AUTO) 0.7 % (0.0-2.0); EOSINOPHILS % (AUTO) 6.1 % (0.0-6.0); HEMATOCRIT 27 % (39-51); HEMOGLOBIN 8.4 g/dL (13.5-17.5); LYMPHOCYTES # (AUTO) 1.4 /CMM (0.8-4.8); LYMPHOCYTES % (AUTO) 15.6 % (20.0-44.0); MEAN CORPUSCULAR HGB CONC 31 g/dl (31.0-36.0); MEAN CORPUSCULAR VOLUME 76 fL (80-96); MONOCYTES # (AUTO) 0.6 /CMM (0.1-1.30); MONOCYTES % (AUTO) 7.4 % (2.0-12.0); NEUTROPHILS # (AUTO) 6.1 /CMM (1.8-8.9); NEUTROPHILS % (AUTO) 70.2 % (43.0-81.0); PLATELET COUNT (AUTO) 519 /CMM (150-450); RDW COEFFICIENT OF VARIATION 17.8 (11.5-15.0); RED BLOOD CELL COUNT(AUTO) 3.54 MIL/uL (4.5-6.0); WHITE BLOOD COUNT (AUTO) 8.7 K/uL (4.3-11.0)
[2018-05-02 07:28] LABS: CALCIUM, SERUM 9.3 mg/dL (8.5-10.1); CREATININE 0.7 mg/dL (0.6-1.3); POTASSIUM 4.3 mmol/L (3.5-5.1)
[2018-05-02 08:00] VITALS: BP 123/73
[2018-05-02] MEDS: FOLIC ACID 1 MG TABLET PO SCH (09:00)
[2018-05-02] MEDS: AMLODIPINE BESYLATE 5 MG TABLET PO SCH (09:00)
[2018-05-02] MEDS: FERROUS SULFATE (325 MG) 325 MG/TAB TABLET PO SCH ×2 (09:01→16:41)
[2018-05-02] MEDS: PANTOPRAZOLE 40 MG TABLET.DR PO SCH (09:01)
[2018-05-02 16:00] VITALS: BP 133/76
--- NOTE | 2018-05-02 18:45 | NUR ---
RN CLOSING NOTES PT IN BED, AWAKE, ALERT AND ORIENTED X 4, NO SOB NOTED, BREATHING EVEN AND UNLABORED AND IN NO ACUTE DISTRESS, DENIES ANY PAIN OR DISCOMFORT. IV ACCESS PATENT AND INTACT, ALL DUE MEDS GIVEN ORDERED, NO ASE NOTED, ALL PATIENT'S NEEDS ATTENDED TO THROUGHOUT THE SHIFT. PLACED CALL LIGHT WITHIN EASY REACH. BED IN LOW POSITION AND LOCKED IN PLACE. WILL CONTINUE TO MONITOR AND ENDORSE TO NEXT SHIFT FOR CONTINUITY OF CARE
--- NOTE | 2018-05-02 19:35 | NUR ---
RN OPENING NOTES RECEIVED REPORT FROM DAYSHIFT REBECCA VELEZ. FOUND Pt AWAKE, RESTING IN BED, WATCHING TV. NO S/S OF ACUTE DISTRESS OR SOB NOTED. Pt IS A/OX4, VERBAL, ABLE TO MAKE NEEDS KNOWN. IV ACCESS ON R HAND #20G, SL. Pt WILL BE NPO EXCEPT MEDS STARTING TONIGHT AT [facility]. SCHEDULED FOR EGD & COLONOSCOPY TOMORROW. WILL START ON GOLYTELY TONIGHT. SAFETY MEASURES IN PLACE. BED LOW, LOCKED, HOB ELEVATED, SIDE RAILS UP, CALL LIGHT AND BEDSIDE TABLE WITHIN REACH. WILL CONTINUE TO MONITOR Pt THROUGHOUT THE NIGHT FOR SAFETY.
[2018-05-02 20:00] VITALS: BP 118/71
[2018-05-02] MEDS ORDERED: PEG 3350/NA SULF,BICARB,CL/KCL 4,000 ML BOTTLE PO ONE (20:00)
[2018-05-02 20:04] VITALS: BP 118/71
[2018-05-02] MEDS: ATORVASTATIN 10 MG TABLET PO SCH (21:58)
[2018-05-02] MEDS: TAMSULOSIN 0.4 MG CAP.SR.24H PO SCH (21:58)
--- NOTE | 2018-05-02 22:00 | NUR ---
RN NOTES CONSENT SIGNED FOR EGD & COLONOSCOPY FOR TOMORROW AM. STARTED ON Proginet.
--- NOTE | 2018-05-03 06:30 | NUR ---
RN NOTES SPOKE WITH Pt SAID HIS BM WAS NOT CLEAR BUT HE DID FINISH THE BOTTLE OF GOLYTELY. WILL CALL [employer] TO INFORM THEM.
--- NOTE | 2018-05-03 06:45 | NUR ---
RN NOTES CALLED [facility] NUMBER TO PAGE THE [facility] WAITING FOR CALL BACK. WILL ENDORSE TO DAYSHIFT RN TO CONTINUE WITH THE Pt's CARE.
--- NOTE | 2018-05-03 07:00 | NUR ---
RN CLOSING NOTES NO SIGNIFICANT CHANGES IN Pt's CONDITION. Pt REMAINS STABLE AT THIS TIME. NO S/S OF ACUTE DISTRESS OR SOB NOTED. ALL NEEDS MET AND ATTENDED TO. SAFETY MEASURES IN PLACE. WILL ENDORSE TO DAYSHIFT RN FOR Pt's KATHIA.
--- NOTE | 2018-05-03 07:30 | NUR ---
RN OPENING NOTES PT IN BED, AWAKE, ALERT AND ORIENTED X 4, NO SOB NOTED, BREATHING EVEN AND UNLABORED AND IN NO ACUTE DISTRESS, DENIES ANY PAIN OR DISCOMFORT. IV ACCESS PATENT AND INTACT, ALL DUE MEDS GIVEN ORDERED, NO ASE NOTED, ALL PATIENT'S NEEDS ATTENDED TO THROUGHOUT THE SHIFT. PLACED CALL LIGHT WITHIN EASY REACH. BED IN LOW POSITION AND LOCKED IN PLACE. WILL CONTINUE TO MONITOR, PT FOR EGD, COLONOSCOPY TODAY MADE OR AWARE THAT PT DOES NOT HAVE CLEAR STOOLS AT THIS TIME, WILL REATTEMPT TO CALL DR. BLUNT TO NOTIFY
[2018-05-03 08:00] VITALS: BP 134/73
[2018-05-03] MEDS ORDERED: SORBITOL SOLUTION 30 ML PO ONE (08:30)
[2018-05-03] MEDS: AMLODIPINE BESYLATE 5 MG TABLET PO SCH (08:37)
[2018-05-03] MEDS: FOLIC ACID 1 MG TABLET PO SCH (08:37)
[2018-05-03] MEDS: PANTOPRAZOLE 40 MG TABLET.DR PO SCH (08:37)
[2018-05-03] MEDS: FERROUS SULFATE (325 MG) 325 MG/TAB TABLET PO SCH ×2 (08:38→16:47)
--- NOTE | 2018-05-03 11:33 | NUR ---
RN NOTES PATIENT TAKEN TO OR FOR EGD, COLONOSCOPY WILL CONTINUE TO MONITOR UPON RETURN TO UNIT
--- NOTE | 2018-05-03 13:00 | NUR ---
RN NOTES PT BACK FROM OR IN STABLE CONDITION WILL CONTINUE TO MONITOR
[2018-05-03] MEDS: HYDROCODONE/APAP 5/325MG 1 EACH TABLET PO PRN (15:29)
[2018-05-03 16:00] VITALS: BP 127/77
== END 2018-05-03 17:56 | DRG 189 ==
LOC: ER 13:44 → MED 17:00
PROVIDERS: ADMIT Family Medicine; ATTEND Family Medicine
PROC: 30233N1 Transfusion of Nonautologous Red Blood Cells into Peripheral Vein, Percutaneous Approach (ICD-10-PCS; principal; 2018-04-27)
PROC: 0DJD8ZZ Inspection of Lower Intestinal Tract, Via Natural or Artificial Opening Endoscopic (ICD-10-PCS; 2018-05-03)
PROC: 0DJ08ZZ Inspection of Upper Intestinal Tract, Via Natural or Artificial Opening Endoscopic (ICD-10-PCS; 2018-05-03 12:00)
DX: J96.00 Acute respiratory failure, unspecified whether with hypoxia or hypercapnia (principal); E44.0 Moderate protein-calorie malnutrition; J90 Pleural effusion, not elsewhere classified; I25.10 Atherosclerotic heart disease of native coronary artery without angina pectoris; D63.8 Anemia in other chronic diseases classified elsewhere; J44.9 Chronic obstructive pulmonary disease, unspecified; E78.5 Hyperlipidemia, unspecified; I10 Essential (primary) hypertension; F41.9 Anxiety disorder, unspecified; Z86.718 Personal history of other venous thrombosis and embolism; Z86.711 Personal history of pulmonary embolism; Z85.6 Personal history of leukemia; Z79.01 Long term (current) use of anticoagulants; Z88.8 Allergy status to other drugs, medicaments and biological substances; Z79.899 Other long term (current) drug therapy; F31.9 Bipolar disorder, unspecified; F17.200 Nicotine dependence, unspecified, uncomplicated; Z98.890 Other specified postprocedural states; D50.9 Iron deficiency anemia, unspecified; D72.829 Elevated white blood cell count, unspecified; N40.0 Benign prostatic hyperplasia without lower urinary tract symptoms; K59.00 Constipation, unspecified; R73.9 Hyperglycemia, unspecified; D17.0 Benign lipomatous neoplasm of skin and subcutaneous tissue of head, face and neck; K44.9 Diaphragmatic hernia without obstruction or gangrene; K57.30 Diverticulosis of large intestine without perforation or abscess without bleeding; E53.8 Deficiency of other specified B group vitamins; K64.8 Other hemorrhoids
CPT/HCPCS: 36415; 71045-TC; 71046; 71250-TC; 76942-TC; 80048-TC; 80061-TC; 80076-TC; 82272-TC; 82728-TC; 82746; 83540-TC; 83735-TC; 84100-TC; 84443-TC; 85025-TC; 85730-TC; 86850-TC; 86921-TC; 87081-TC; A4606; J2405; J3490; P9016-BL; Z7610

== ENCOUNTER 2018-05-25 09:36 | Outpatient (CLI) | payer MEDICARE, OTHER ==
[~2018-05-25 09:36] MED LIST changes: +AMLO5TAB2 PO; -AMLO5TAB7 PO; -CLON0.5T PO; -DULO30CA2 PO; +OXYC10TA49 PO; -OXYC5CAP18 PO
[2018-05-25] MEDS ORDERED: IOHEXOL-300 100 ML VIAL IV ONE (10:06)
[2018-05-25] MEDS ORDERED: IV NS 0.9% 250 ML IV ONE (10:07)
[2018-05-25] MEDS ORDERED: CT SWABBABLE VALVE TRANS SET 1 EA INFUS.SET MC ONE (10:07)
== END 2018-05-25 23:59 | disposition home or self-care (01) ==
LOC: CT 09:36
PROVIDERS: ATTEND Internal Medicine Hematology & Oncology
DX: I25.10 Atherosclerotic heart disease of native coronary artery without angina pectoris (principal); K57.30 Diverticulosis of large intestine without perforation or abscess without bleeding; J90 Pleural effusion, not elsewhere classified; D64.9 Anemia, unspecified; R63.0 Anorexia; R63.4 Abnormal weight loss
CPT/HCPCS: 71270; 74178; J7050; Q9967

== ENCOUNTER 2018-06-18 12:04 | Inpatient (IN) | payer MEDICARE, OTHER ==
[~2018-06-18] VITALS: Ht 180.3 cm; Wt 91.6 kg
--- NOTE | 2018-06-18 12:22 | NUR ---
PT SEEN & EVAL'D BY DR. FREEMAN. C/O ABD PAIN, NAUSEA, VOMITING X 1 WEEK, FEELING LIGHTHEADED.
[2018-06-18 13:03] LABS: CALCIUM, SERUM 9.2 mg/dL (8.5-10.1); CARBON DIOXIDE 28 mmol/L (21-32); CHLORIDE 101 mmol/L (98-107); CREATININE 0.7 mg/dL (0.6-1.3); GLUCOSE 103 mg/dL (74-106); POTASSIUM 4.8 mmol/L (3.5-5.1); SODIUM SERUM 136 mmol/L (136-145); UREA NITROGEN, BLOOD 9 mg/dL (7-18)
[2018-06-18 13:04] LABS: BASOPHILS # (AUTO) 0.1 /CMM (0.0-0.2); BASOPHILS % (AUTO) 0.8 % (0.0-2.0); EOSINOPHILS % (AUTO) 2.2 % (0.0-6.0); HEMATOCRIT 31 % (39-51); HEMOGLOBIN 9.7 g/dL (13.5-17.5); LYMPHOCYTES # (AUTO) 1.4 /CMM (0.8-4.8); MEAN CORPUSCULAR HEMOGLOBIN 25 PG (26.0-33.0); MEAN CORPUSCULAR HGB CONC 31 g/dl (31.0-36.0); MEAN CORPUSCULAR VOLUME 79 fL (80-96); MONOCYTES # (AUTO) 0.6 /CMM (0.1-1.30); MONOCYTES % (AUTO) 7.7 % (2.0-12.0); NEUTROPHILS # (AUTO) 5.4 /CMM (1.8-8.9); NEUTROPHILS % (AUTO) 71.3 % (43.0-81.0); PLATELET COUNT (AUTO) 451 /CMM (150-450); RDW COEFFICIENT OF VARIATION 23.9 (11.5-15.0); RED BLOOD CELL COUNT(AUTO) 3.91 MIL/uL (4.5-6.0); WHITE BLOOD COUNT (AUTO) 7.8 K/uL (4.3-11.0)
[2018-06-18 13:06] LABS: INR 0.94 (0.85-1.15)
[2018-06-18 13:09] LABS: ALANINE AMINOTRANSFERASE 19 U/L (12-78); ALBUMIN 2.9 g/dL (3.4-5.0); ALKALINE PHOSPHATASE 88 U/L (46-116); ASPARTATE AMINOTRANSFERASE 16 U/L (15-37); BILIRUBIN,DIRECT 0.1 mg/dL (0.0-0.2); BILIRUBIN,TOTAL 0.4 mg/dL (0.2-1.0); LIPASE 252 U/L (73-393); TOTAL PROTEIN, SERUM 7.2 g/dL (6.4-8.2)
[2018-06-18 13:14] LABS: TROPONIN I < 0.017 ng/mL (0.00-0.056)
[2018-06-18] MEDS ORDERED: APIX2.5T PO (14:17)
[2018-06-18] MEDS ORDERED: NILO200C PO (14:17)
[2018-06-18] MEDS ORDERED: CLON1TAB5 PO (14:17)
--- NOTE | 2018-06-18 15:31 | NUR ---
UPHOLSTERER ASSEMBLY LINE NOTES PATIENT ARRIVED AT UNIT AT 1450, REPORT RECEIVED FROM ELVER FERNANDEZ. PATIENT AWAKE, ALERT AND ORIENTED X 4, VERBALLY RESPONSIVE AND RESPONDS TO VERBAL AND TACTILE STIMULI. BREATHING EVEN AND UNLABORED. NO SOB OR ACUTE DISTRESS NOTED AT THIS TIME. PATIENT CALM AND RELAXED. NO CHANGES IN LOC NOTED AT THIS TIME. PATIENT AFEBRILE, SKIN DRY AND WARM TO TOUCH. PATIENT ADMITTED UNDER MEDICAL SUPERVISION OF ANGIE TERRAZAS, MADE AWARE OF PATIENT ADMISSION. WILL CONTINUE TO MONITOR. BED LOCKED AND IN LOW POSITION. BILATERAL UPPER SIDE RAILS UP AND LOCKED. CALL LIGHT WITHIN EASY REACH
[2018-06-18 16:00] VITALS: BP 118/79
[2018-06-18] MEDS ORDERED: clonazePAM 1 MG TABLET PO PRN (17:00)
[2018-06-18] MEDS ORDERED: ZOLPIDEM TARTRATE 10 MG TABLET PO PRN (17:00)
[2018-06-18] MEDS ORDERED: IV NS 0.9% 1,000 ML IV PRN (17:06)
[2018-06-18] MEDS ORDERED: ONDANSETRON HCL/PF 4 MG/2 ML VIAL IVP PRN (17:30)
[2018-06-18] MEDS ORDERED: ACETAMINOPHEN 325 MG TABLET PO PRN (17:30)
[2018-06-18] MEDS ORDERED: MORPHINE SULFATE INJ 2 MG/ML DISP.SYRIN IV PRN (17:30)
[2018-06-18] MEDS ORDERED: Z GUARD REMEDY 2 OZ OINT TP PRN (17:30)
[2018-06-18] MEDS ORDERED: APIXABAN 2.5 MG TABLET PO ONE (17:30)
[2018-06-18] MEDS: oxyCODONE IR immediate release 5 MG PO PRN ×2 (18:26→22:49)
--- NOTE | 2018-06-18 18:52 | NUR ---
DRUM HANDLER NOTES PATIENT RESTING INSIDE ROOM. AWAKE, ALERT AND ORIENTED X 4. VERBALLY RESPONSIVE AND RESPONDS TO VERBAL AND TACTILE STIMULI. BREATHING EVEN AND UNLABORED. NO SOB OR ACUTE DISTRESS NOTED AT THIS TIME. PATIENT AFEBRILE, SKIN DRY AND WARM TO TOUCH. NO CHANGES IN LOC NOTED. PATIENT CALM AND RELAXED. IV INTACT AND PATENT, NO SWELLING OR BLEEDING NOTED ON SITE. SCRIPT ARTIST IN PLACE, NSR WITH BBB. WILL ENDORSE TO INCOMING SHIFT FOR KATHIA. BED LOCKED AND IN LOW POSITION. BILATERAL UPPER SIDE RAILS UP AND LOCKED. CALL LIGHT WITHIN EASY REACH
--- NOTE | 2018-06-18 19:30 | NUR ---
PRIMER POWDER BLENDER WET OPENING NOTES RECEIVED PT RESTING IN BED, WATCHING TV, AWAKE, A & O X 4. VERBALLY RESPONSIVE TO VERBAL AND TACTILE STIMULI. BREATHING EVEN AND UNLABORED. NO SOB OR ACUTE DISTRESS NOTED. SKIN DRY AND WARM TO TOUCH. NO CHANGES IN LOC NOTED. AMBULATORY, STEADY WITH STAND BY ASSIST. IV INTACT AND PATENT TO LEFT HAND, RUNNING WITH NS ORDERED. NO S/S OF INFECTION NOTED TO SITE. YARD MANAGER IN PLACE, NSR WITH BBB WITH HR 80. BED LOCKED AND IN LOW POSITION. BILATERAL UPPER SIDE RAILS UP AND LOCKED. CALL LIGHT WITHIN EASY REACH. WILL CONTINUE TO MONITOR CLOSELY.
[2018-06-18 20:00] VITALS: BP 125/72
[2018-06-18 20:01] VITALS: BP 125/72
[2018-06-18] MEDS: ATORVASTATIN 10 MG TABLET PO SCH (21:25)
[2018-06-18] MEDS: ZOLPIDEM TARTRATE 5 MG TABLET PO PRN (21:25)
--- NOTE | 2018-06-18 21:26 | NUR ---
PRN AMBIEN GIVEN PT ASKED TO GET AMBIEN FOR SLEEPLESSNESS @ THIS TIME & HE INSISTED TO TAKE RIGHT NOW. PRN AMBIEN GIVEN ORDERED. WILL REASSESS FOR EFFECTIVENESS.
--- NOTE | 2018-06-18 22:49 | NUR ---
prn oxycodone given pt had c/o abdominal pain 05/16 & preferred to take oxycodone @ this time only. prn med given as ordered. will reassess for effectiveness.
--- NOTE | 2018-06-18 23:50 | NUR ---
REFUSED IVF PT REFUSED TO HAVE IVF @ THIS TIME SAYING THAT HE IS BEEN DRINKING & TOLERATING WELL SO FAR & DOESN'T NEED IVF. EXPLAINED THE PT ABOUT BEING NPO POST MIDNIGHT FOR ABDOMINAL CT IN AM BUT PT CONTINUED REFUSING TO HAVE IVF. WILL RETRY TO ENCOURAGE AGAIN.
--- NOTE | 2018-06-19 00:50 | NUR ---
MS RN NOTE PT IS SLEEPING COMFORTABLY @ THIS TIME, CONTINUED TO REFUSE IVF, DID NOT WANT TO BE CONNECTED TO THE IVF. NPO FOR ABDOMINAL CT DIAGNOSTIC TEST. WILL MONITOR CLOSELY.
[2018-06-19] MEDS: oxyCODONE IR immediate release 5 MG PO PRN ×4 (06:12→20:34)
--- NOTE | 2018-06-19 06:12 | NUR ---
prn oxycodone given pt had c/o abdominal pain 04/16 & preferred to take oxycodone @ this time only. prn med given as ordered. will reassess for effectiveness.
--- NOTE | 2018-06-19 06:52 | NUR ---
SURGICAL ASSIST CLOSING NOTES PT RESTING IN BED, AWAKE, A & O X 4. RESPONSIVE TO VERBAL AND TACTILE STIMULI. BREATHING EVEN AND UNLABORED. NO SOB OR ACUTE DISTRESS NOTED. SKIN DRY AND WARM TO TOUCH. AMBULATORY, STEADY WITH STAND BY ASSIST. IV INTACT AND PATENT TO LEFT HAND, RUNNING WITH NS ORDERED. NO S/S OF INFECTION NOTED TO SITE. REFUSED TO BE CONNECTED TO VIF @ NIGHT. NPO FOR DIAGNOSTIC TEST, CT ABDOMEN IN AM. BED LOCKED AND IN LOW POSITION. BILATERAL UPPER SIDE RAILS UP AND LOCKED. CALL LIGHT WITHIN EASY REACH. WILL ENDORSE TO AM RN FOR CONTINUITY OF CARE.
--- NOTE | 2018-06-19 06:59 | NUR ---
REFUSED IVF AGAIN PT WAS ENCOURAGED & CONNECTED TO IVF FOR A WHILE BUT AGAIN PT WANTED TO BE DISCONNECTED & WANTED TO GO BACK TO SLEEP. NOTED SLIGHT LEAKAGE @ IV SITE, INFORMED THE PT THAT NURSE WAS GOING TO CHECK THE IV SITE BUT PT REFUSED & WANTED TO BE LEFT ALONE TO GO BACK TO SLEEP RIGHT NOW. PT ASKED THE NURSE TO CHECK IV SITE LATER, NOT NOW. WILL ENDORSE TO AM RN TO REASSESS THE IV SITE.
[2018-06-19 07:22] LABS: ALBUMIN 2.8 g/dL (3.4-5.0); BILIRUBIN,TOTAL 0.3 mg/dL (0.2-1.0); CALCIUM, SERUM 8.9 mg/dL (8.5-10.1); CREATININE 0.9 mg/dL (0.6-1.3); MAGNESIUM 2.3 mg/dL (1.8-2.4); PHOSPHORUS 4.1 mg/dL (2.5-4.9); POTASSIUM 4.6 mmol/L (3.5-5.1); TOTAL PROTEIN, SERUM 7.1 g/dL (6.4-8.2)
[2018-06-19 07:26] LABS: THYROID STIMULATING HORMONE 3.671 uIU/mL (0.358-3.74)
[2018-06-19 08:00] VITALS: BP 123/73
--- NOTE | 2018-06-19 08:00 | NUR ---
RN NOTES RECEIVED PATIENT IN THE BED SLEEPING. AROUSE WHEN CALLED NAME OT TOUCHED, V/S STABLE, CALL LIGHT WITHIN TO REACH, NO ACUTE RESPIRATORY DISTRESS, CONTINUED MONITORING.
[2018-06-19] MEDS: AMLODIPINE BESYLATE 5 MG TABLET PO SCH (08:25)
[2018-06-19] MEDS: PANTOPRAZOLE 40 MG TABLET.DR PO SCH (08:26)
[2018-06-19] MEDS ORDERED: IPRATROPIUM NEB FS 0.5 MG/2.5 ML AMPUL.NEB NEB PRN (10:00)
[2018-06-19] MEDS ORDERED: ALBUTEROL HALF STRENGTH 1.25 MG/3 ML VIAL.NEB NEB PRN (10:00)
--- NOTE | 2018-06-19 10:33 | NUR ---
RN NOTES RECEIVED PATIENT IN THE ROOM A/O X3/4, PATIENT STABLE NO ACUTE RESPIRATORY DISTRESS, MEDICATION WERE ADMINISTERED NIGHT NURSE EFFECTIVE. PATIENT NPO AT THIS TIME GOING FOR CT ABD WO CONTRAST. PATIENT AMBULATORY SELF CARE, NEEDS ATTENDED AND ANTICIPATED, CALL LIGHT WITHIN TO REACH. SAFETY PRECAUTION MAINTAINED ALL THE TIME.
[2018-06-19 11:33] LABS: BASOPHILS % (AUTO) 0.4 % (0.0-2.0); EOSINOPHILS % (AUTO) 4.7 % (0.0-6.0); HEMATOCRIT 30 % (39-51); HEMOGLOBIN 9.3 g/dL (13.5-17.5); LYMPHOCYTES # (AUTO) 1.5 /CMM (0.8-4.8); LYMPHOCYTES % (AUTO) 25.7 % (20.0-44.0); MEAN CORPUSCULAR HEMOGLOBIN 26 PG (26.0-33.0); MEAN CORPUSCULAR HGB CONC 31 g/dl (31.0-36.0); MEAN CORPUSCULAR VOLUME 82 fL (80-96); MONOCYTES # (AUTO) 0.6 /CMM (0.1-1.30); MONOCYTES % (AUTO) 9.5 % (2.0-12.0); NEUTROPHILS # (AUTO) 3.6 /CMM (1.8-8.9); NEUTROPHILS % (AUTO) 59.7 % (43.0-81.0); PLATELET COUNT (AUTO) 430 /CMM (150-450); RDW COEFFICIENT OF VARIATION 25.7 (11.5-15.0); RED BLOOD CELL COUNT(AUTO) 3.65 MIL/uL (4.5-6.0); RETICULOCYTE COUNT 3.1 % (0.6-2.5)
--- NOTE | 2018-06-19 14:38 | NUR ---
RN NOTES COLLECTED [facility]A CALLED [facility] FOR ROUTE CLERK.
[2018-06-19] MEDS: APIXABAN 2.5 MG TABLET PO SCH ×2 (15:42→16:56)
--- NOTE | 2018-06-19 15:45 | NUR ---
RN NOTES ADMINISTERED OXY IR 10 MG PO PRN PER PATIENT REQUEST FOR PAIN 04/16, V/S TAKEN BP- 121/ 70, P-66, ENCOURAGED TO INCREASE FLUID INTAKE, CONTINUED MONITORING.
[2018-06-19 16:00] VITALS: BP 121/70
[2018-06-19 16:03] LABS: APPEARANCE,URINE CLEAR (CLEAR); BILIRUBIN,URINE NEGATIVE (NEGATIVE); BLOOD, URINE NEGATIVE Ery/uL (NEGATIVE); COLOR,URINE YELLOW (YELLOW); KETONES,URINE NEGATIVE (NEGATIVE); LEUKOCYTE ESTERASE ,URINE NEGATIVE (NEGATIVE); NITRITE, URINE NEGATIVE (NEGATIVE); PROTEIN,URINE NEGATIVE (NEGATIVE); UGLUCOSE NEGATIVE (NEGATIVE); UROBILINOGEN,URINE 0.2 EU/dL (0.2)
--- NOTE | 2018-06-19 18:00 | NUR ---
RN NOTES PATIENT STABLE , NO C/O PAIN AT THIS TIME, REFUSED IV ACCESS, PATIENT STATE" I WILL INCREASE WATER INTAKE". PATIENT EATING WELL. PATIENT AMBULATORY SELF CARE. CALL LIGHT WITHIN TO REACH. ENDORSED ONCOMING NURSE FOR PLAN OF CARE.
--- NOTE | 2018-06-19 19:20 | NUR ---
MS RN OPENING NOTES RECEIVED PT RESTING IN BED, WATCHING TV, AWAKE, A & O X 4. RESPONSIVE TO VERBAL AND TACTILE STIMULI. BREATHING EVEN AND UNLABORED. NO SOB OR ACUTE DISTRESS NOTED. SKIN DRY AND WARM TO TOUCH. NO C/O PAIN VERBALIZED @ THIS TIME. AMBULATORY, STEADY WITH STAND BY ASSIST. PT REFUSES TO HAVE IV ACCESS, PER AM RN. BED LOCKED AND IN LOW POSITION. BILATERAL UPPER SIDE RAILS UP AND LOCKED. CALL LIGHT WITHIN EASY REACH. WILL CONTINUE TO MONITOR CLOSELY.
[2018-06-19 20:00] VITALS: BP 104/62
--- NOTE | 2018-06-19 20:34 | NUR ---
prn oxycodone given pt had c/o abdominal pain 04/16 & wanted to take oxycodone @ this time only. prn med given as ordered. will reassess for effectiveness.
[2018-06-19] MEDS: ATORVASTATIN 10 MG TABLET PO SCH (21:43)
[2018-06-19] MEDS: ZOLPIDEM TARTRATE 5 MG TABLET PO PRN (21:43)
--- NOTE | 2018-06-19 21:43 | NUR ---
PRN AMBIEN GIVEN PT ASKED TO TAKE AMBIEN FOR SLEEPLESSNESS @ THIS TIME. PRN AMBIEN GIVEN ORDERED. WILL REASSESS FOR EFFECTIVENESS.
--- NOTE | 2018-06-20 06:39 | NUR ---
MS RN CLOSING NOTES PT RESTING IN BED, SLEPT WELL @ NIGHT AFTER TAKING AMBIEN. AWAKE, A & O X 4. RESPONSIVE TO VERBAL AND TACTILE STIMULI. BREATHING EVEN AND UNLABORED. NO SOB OR ACUTE DISTRESS NOTED. SKIN DRY AND WARM TO TOUCH. NO C/O PAIN VERBALIZED @ THIS TIME. AMBULATORY, STEADY WITH STAND BY ASSIST. PT REFUSES TO HAVE IV ACCESS, STATED HE WILL TAKE GOOD PO FLUIDS. BED LOCKED AND IN LOW POSITION. BILATERAL UPPER SIDE RAILS UP AND LOCKED. CALL LIGHT WITHIN EASY REACH. WILL ENDORSE TO AM RN FOR CONTINUITY OF CARE.
--- NOTE | 2018-06-20 07:40 | NUR ---
RN OPENING NOTES RECEIVED PT. IN BED AWAKE, A&OX4. BREATHING UNLABORED, AND EVENLY ON ROOM AIR. NO SOB, NO S/S OF ACUTE DISTRESS. NO IV ACCESS AT THIS TIME, PT. REFUSES A NEW IV INSERTION. PT.'S BED IS IN LOWEST, AND LOCKED POSITION. 2 SIDE RAILS UP, AND INSTRUCTED PT. TO USE CALL LIGHT FOR ASSISTANCE. ALL NEEDS MET. WILL CONTINUE TO ASSESS AND MONITOR.
[2018-06-20 08:00] VITALS: BP 124/72
[2018-06-20] MEDS: PANTOPRAZOLE 40 MG TABLET.DR PO SCH (09:02)
[2018-06-20] MEDS: AMLODIPINE BESYLATE 5 MG TABLET PO SCH (09:03)
[2018-06-20] MEDS: APIXABAN 2.5 MG TABLET PO SCH ×2 (09:09→17:19)
[2018-06-20] MEDS: oxyCODONE IR immediate release 5 MG PO PRN ×3 (09:13→20:06)
[2018-06-20 16:00] VITALS: BP 117/75
--- NOTE | 2018-06-20 18:33 | NUR ---
RN CLOSING NOTES PT. IS IN BED WATCHING TV, AWAKE, A&OX4. BREATHING UNLABORED, AND EVENLY ON ROOM AIR. NO SOB, NO S/S OF ACUTE DISTRESS. PT. REFUSED NEW IV INSERTION. PT.'S BED IS IN LOWEST, AND LOCKED POSITION. 2 SIDE RAILS UP, AND INSTRUCTED PT. TO USE CALL LIGHT FOR ASSISTANCE. ALL NEEDS MET. WILL ENDORSE REPORT TO NURSE.
--- NOTE | 2018-06-20 19:20 | NUR ---
RN INITIAL NOTES Patient received sitting up in bed, alert, oriented x 4. Verbally responsive. No SOB. Not in any distress. No complaints as of this time. Patient stable as endorsed by the morning shift RN. Call churhc within reach. Bed in low locked position. Will monitor accordingly
--- NOTE | 2018-06-20 19:35 | NUR ---
RN NOTES As per morning nurse, patient has the medication [place] at bedside. Informed the patient that all home medications will be kept in the pharmacy. Patient refused to give it. As per patient," No, just leave it with me."
[2018-06-20 20:00] VITALS: BP 112/73
[2018-06-20] MEDS: ATORVASTATIN 10 MG TABLET PO SCH (21:33)
[2018-06-20] MEDS: ZOLPIDEM TARTRATE 5 MG TABLET PO PRN (21:34)
[2018-06-21] MEDS: oxyCODONE IR immediate release 5 MG PO PRN ×3 (02:19→13:05)
--- NOTE | 2018-06-21 02:19 | NUR ---
RN NOTES Patient requesting for medication for abdominal pain 04/16. Oxycodone given as ordered
--- NOTE | 2018-06-21 06:20 | NUR ---
RN CLOSING NOTES Patient remains stable. Not in any distress. No complaints of pain as of this time. Safety precautions in place. Call church within reach. Bed in low, locked position. Will endorse KATHIA to oncoming RN.
--- NOTE | 2018-06-21 07:33 | NUR ---
MS RN OPENING NOTES RECEIVED PATIENT IN STABLE CONDITION. PATIENT IS RESTING IN BED. IN NO APPARENT DISTRESS. BEDSIDE RAILS ARE UPX2. BED IS LOCKED AND LOWERED. CALL LIGHT IS WITHIN REACH. WILL CONTINUE TO MONITOR.
[2018-06-21 08:10] VITALS: BP 108/68
[2018-06-21] MEDS: APIXABAN 2.5 MG TABLET PO SCH (08:54)
[2018-06-21 08:55] VITALS: BP 108/68
[2018-06-21] MEDS: AMLODIPINE BESYLATE 5 MG TABLET PO SCH (08:55)
[2018-06-21] MEDS: PANTOPRAZOLE 40 MG TABLET.DR PO SCH (08:55)
[2018-06-21] MEDS ORDERED: MAGNESIUM HYDROXIDE 30 ML UDC PO PRN (11:30)
[2018-06-21] MEDS ORDERED: DOCU100C36 PO (13:40)
--- NOTE | 2018-06-21 14:46 | NUR ---
GAVE REPORT TO ARIC FERNANDEZ AT [facility] [phone]. PICKED UP PATIENTS HOME MEDICATIONS FROM PHARMACY AND ARE NOW AT PATIENT'S BEDSIDE. REFRIGERATOR CAR ICER TIME FOR PATIENT TO BE TRANSFERRED TO [facility] IS 16:30.
--- NOTE | 2018-06-21 16:30 | NUR ---
PATIENT DISCHARGED IN STABLE CONDITION. PATIENT DID NOT HAVE IV ACCESS. ID BAND WAS REMOVED. ALL NEEDS WERE MET. EXITCARE WAS PROVIDED TO THE PATIENT. BELONGINGS WERE CHECKED AND SENT WITH THE PATIENT. PRESCRIPTION WAS SENT WITH THE PATIENT. REPORT WAS GIVEN TO ARIC FERNANDEZ AT [facility]. PATIENT WAS ESCORTED OUT OF THE FACILITY BY AMBULANCE WITH EMT.
[2018-06-23 04:37] LABS: *SPE A/G RATIO 0.9 (0.7-1.7); *SPE ALBUMIN 2.9 g/dL (2.9-4.4); *SPE ALPHA-1-GLOBULIN 0.3 g/dL (0.0-0.4); *SPE ALPHA-2-GLOBULIN 0.9 g/dL (0.4-1.0); *SPE BETA GLOBULIN 0.9 g/dL (0.7-1.3); *SPE GLOBULIN, TOTAL 3.3 g/dL (2.2-3.9); *SPE M-SPIKE 0.3 g/dL (Not Observed); *SPEGAMMA GLOBULIN 1.1 g/dL (0.4-1.8)
== END 2018-06-21 16:34 | DRG 187 ==
LOC: ER 12:05 → TELE 14:11 → MED 21:18
PROVIDERS: ADMIT Nurse Practitioner Acute Care; ATTEND Nurse Practitioner Acute Care
DX: J90 Pleural effusion, not elsewhere classified (principal); D68.59 Other primary thrombophilia; C92.11 Chronic myeloid leukemia, BCR/ABL-positive, in remission; F32.9 Major depressive disorder, single episode, unspecified; D63.8 Anemia in other chronic diseases classified elsewhere; I25.10 Atherosclerotic heart disease of native coronary artery without angina pectoris; Z86.718 Personal history of other venous thrombosis and embolism; J44.9 Chronic obstructive pulmonary disease, unspecified; Z79.01 Long term (current) use of anticoagulants; Z86.711 Personal history of pulmonary embolism; N40.0 Benign prostatic hyperplasia without lower urinary tract symptoms; Z87.891 Personal history of nicotine dependence; I10 Essential (primary) hypertension; E78.5 Hyperlipidemia, unspecified; R10.9 Unspecified abdominal pain; T45.1X5A Adverse effect of antineoplastic and immunosuppressive drugs, initial encounter; Y92.009 Unspecified place in unspecified non-institutional (private) residence as the place of occurrence of the external cause; D50.9 Iron deficiency anemia, unspecified; D52.9 Folate deficiency anemia, unspecified; D51.3 Other dietary vitamin B12 deficiency anemia; K57.30 Diverticulosis of large intestine without perforation or abscess without bleeding; K59.00 Constipation, unspecified; K64.8 Other hemorrhoids
CPT/HCPCS: 36415; 71045-TC; 80048-TC; 80053-TC; 80061-TC; 80076-TC; 81000-TC; 82728-TC; 82746; 82784; 83540-TC; 83690-TC; 83735-TC; 84100-TC; 84155; 84165; 84443-TC; 84484-TC; 85025-TC; 85045-TC; 85730-TC; 86334; 87081-TC; 93970-TC; A4349; A4606; J2270; J7030; Z7610

== ENCOUNTER 2018-08-02 15:48 | Outpatient (CLI) | payer MEDICARE, OTHER ==
[~2018-08-02 15:48] MED LIST changes: -AMLO5TAB2 PO; +AMLO5TAB7 PO; +APIX2.5T PO; -BISA5TAB10 PO; +CLON1TAB5 PO; +DOCU100C36 PO; -FERR325T23 PO; +NILO200C PO; -PANT40TA2 PO; -RIVA10TA PO; -TAMS-12 PO
[2018-08-02 18:02] LABS: BASOPHILS % (AUTO) 0.4 % (0.0-2.0); HEMATOCRIT 41 % (39-51); HEMOGLOBIN 12.7 g/dL (13.5-17.5); LYMPHOCYTES # (AUTO) 1.7 /CMM (0.8-4.8); LYMPHOCYTES % (AUTO) 15.2 % (20.0-44.0); MEAN CORPUSCULAR HGB CONC 31 g/dl (31.0-36.0); MEAN CORPUSCULAR VOLUME 87 fL (80-96); MONOCYTES # (AUTO) 0.6 /CMM (0.1-1.30); MONOCYTES % (AUTO) 5.8 % (2.0-12.0); NEUTROPHILS # (AUTO) 8.6 /CMM (1.8-8.9); NEUTROPHILS % (AUTO) 76.6 % (43.0-81.0); PLATELET COUNT (AUTO) 465 /CMM (150-450); RDW COEFFICIENT OF VARIATION 23.4 (11.5-15.0); RED BLOOD CELL COUNT(AUTO) 4.72 MIL/uL (4.5-6.0); WHITE BLOOD COUNT (AUTO) 11.2 K/uL (4.3-11.0)
[2018-08-02 18:26] LABS: ALBUMIN 3.3 g/dL (3.4-5.0); BILIRUBIN,TOTAL 0.2 mg/dL (0.2-1.0); CALCIUM, SERUM 8.9 mg/dL (8.5-10.1); CREATININE 0.7 mg/dL (0.6-1.3); POTASSIUM 3.4 mmol/L (3.5-5.1); TOTAL PROTEIN, SERUM 7.4 g/dL (6.4-8.2)
[2018-08-02 18:36] LABS: THYROID STIMULATING HORMONE 1.422 uIU/mL (0.358-3.74)
== END 2018-08-02 23:59 | disposition home or self-care (01) ==
LOC: LAB 15:48
PROVIDERS: ATTEND Internal Medicine Hematology & Oncology
DX: J90 Pleural effusion, not elsewhere classified (principal); J98.4 Other disorders of lung; I10 Essential (primary) hypertension
CPT/HCPCS: 36415; 71046; 80053-TC; 82728-TC; 83540-TC; 84443-TC; 85025-TC; 85378-TC

== ENCOUNTER 2018-08-22 05:53 | Inpatient (IN) | payer MEDICARE, OTHER ==
[~2018-08-22] VITALS: Ht 182.9 cm; Wt 90.7 kg
[~2018-08-22 05:53] MED LIST changes: +CLON1TAB12 PO; -CLON1TAB5 PO
--- NOTE | 2018-08-22 06:20 | NUR ---
[id number] FROM HOME C/C LUQ ABD PAIN X 3 DAYS NON RADIATING, -N/V/D.-HEMATURIA -BLOOD IN STOOL. NORMAL BM'S. PT C/O SOB X "FEW WEEKS", HX COPD. PT DENIES CP. PT IS AAOX4. SKIN WNL. NO S/S OF ACUTE DISTRESS NOTED. RR EVEN AND UNLABORED. PT PLACED ON CERTIFIED ALCOHOL AND DRUG COUNSELOR AND POX. PT SAFETY AND COMFORT MEASURES IN PLACE. BEDSIDE FOR JOSEPH
--- NOTE | 2018-08-22 06:21 | NUR ---
ER MD BRITO AT BEDSIDE FOR EVAL
--- NOTE | 2018-08-22 06:27 | NUR ---
EMT BEDSIDE FOR EKG
[2018-08-22 07:01] LABS: APPEARANCE,URINE CLEAR (CLEAR)
[2018-08-22 07:01] LABS: BASOPHILS % (AUTO) 0.5 % (0.0-2.0); EOSINOPHILS % (AUTO) 2.5 % (0.0-6.0); HEMATOCRIT 42 % (39-51); HEMOGLOBIN 13.8 g/dL (13.5-17.5); LYMPHOCYTES # (AUTO) 1.6 /CMM (0.8-4.8); MEAN CORPUSCULAR HGB CONC 33 g/dl (31.0-36.0); MEAN CORPUSCULAR VOLUME 88 fL (80-96); MONOCYTES # (AUTO) 0.4 /CMM (0.1-1.30); MONOCYTES % (AUTO) 5.6 % (2.0-12.0); NEUTROPHILS # (AUTO) 4.4 /CMM (1.8-8.9); NEUTROPHILS % (AUTO) 67.4 % (43.0-81.0); PLATELET COUNT (AUTO) 287 /CMM (150-450); RDW COEFFICIENT OF VARIATION 20.2 (11.5-15.0); RED BLOOD CELL COUNT(AUTO) 4.73 MIL/uL (4.5-6.0); WHITE BLOOD COUNT (AUTO) 6.5 K/uL (4.3-11.0)
[2018-08-22 07:02] LABS: BILIRUBIN,URINE NEGATIVE (NEGATIVE); BLOOD, URINE NEGATIVE Ery/uL (NEGATIVE); COLOR,URINE YELLOW (YELLOW); KETONES,URINE NEGATIVE (NEGATIVE); LEUKOCYTE ESTERASE ,URINE NEGATIVE (NEGATIVE); NITRITE, URINE NEGATIVE (NEGATIVE); PH,URINE 7.5 (5.0-8.0); PROTEIN,URINE NEGATIVE (NEGATIVE); UGLUCOSE NEGATIVE (NEGATIVE)
[2018-08-22 07:08] LABS: BACTERIA,URINE Few /HPF (None Seen); RBC,URINE 0-2 /HPF (0-2); SQUAMOUS EPITHELIAL CELL,UR Rare /HPF (None Seen); WBC,URINE 0-2 /HPF (0-3)
[2018-08-22 07:12] LABS: CALCIUM, SERUM 9.1 mg/dL (8.5-10.1); CARBON DIOXIDE 28 mmol/L (21-32); CHLORIDE 99 mmol/L (98-107); CREATININE 0.7 mg/dL (0.6-1.3); GLUCOSE 105 mg/dL (74-106); POTASSIUM 3.2 mmol/L (3.5-5.1); SODIUM SERUM 135 mmol/L (136-145); UREA NITROGEN, BLOOD 9 mg/dL (7-18)
[2018-08-22 07:19] LABS: INR 0.93 (0.87-1.13); TROPONIN I < 0.017 ng/mL (0.00-0.056)
--- NOTE | 2018-08-22 07:21 | NUR ---
DR URENA SPEAKING TO DR BRITO FOR ADMISSION
[2018-08-22 07:25] LABS: ALANINE AMINOTRANSFERASE 83 U/L (12-78); ALBUMIN 3.5 g/dL (3.4-5.0); ALKALINE PHOSPHATASE 81 U/L (46-116); ASPARTATE AMINOTRANSFERASE 58 U/L (15-37); B-TYPE NATRIURETIC PEPTIDE 88 PG/ML (0-125); BILIRUBIN,DIRECT 0.2 mg/dL (0.0-0.2); BILIRUBIN,TOTAL 0.5 mg/dL (0.2-1.0)
--- NOTE | 2018-08-22 07:26 | NUR ---
REPORT GIVEN TO REBECCA MEZA FOR KATHIA
--- NOTE | 2018-08-22 07:27 | NUR ---
CALLED RT FOR BREATHING TX. RT EN ROUTE
[2018-08-22] MEDS ORDERED: ALBUTEROL FS 2.5 MG/0.5 ML VIAL.NEB NEB ONE (07:30)
[2018-08-22] MEDS ORDERED: MAG HYDROX/AL HYDROX/SIMETH 30 ML UDC PO ONE (07:30)
[2018-08-22] MEDS ORDERED: ALBUTEROL FS 2.5 MG/0.5 ML VIAL.NEB ONE (07:33)
[2018-08-22] MEDS ORDERED: MAG HYDROX/AL HYDROX/SIMETH 30 ML UDC ONE (07:43)
[2018-08-22] MEDS: MAG HYDROX/AL HYDROX/SIMETH 30 ML UDC PO PRN (07:49)
[2018-08-22] MEDS ORDERED: ACETAMINOPHEN 325 MG TABLET PO PRN (08:00)
[2018-08-22] MEDS ORDERED: MAGNESIUM HYDROXIDE 30 ML UDC PO PRN (08:00)
[2018-08-22] MEDS ORDERED: ONDANSETRON HCL/PF 4 MG/2 ML VIAL IVP PRN (08:00)
[2018-08-22] MEDS ORDERED: Z GUARD REMEDY 2 OZ OINT TP PRN (08:00)
[2018-08-22] MEDS ORDERED: HYDROCODONE/APAP 5/325MG 1 EACH TABLET PO PRN (08:00)
[2018-08-22] MEDS ORDERED: PANTOPRAZOLE 40 MG VIAL ONE (09:21)
[2018-08-22] MEDS: PANTOPRAZOLE 40 MG VIAL IV SCH ×2 (09:24→09:25)
--- NOTE | 2018-08-22 09:35 | NUR ---
Pt going to 308-2 NKE/Hand off to Violet FERNANDEZ pt states "abdominal pain-tolerable not bad" updated with plan of care No acute distress. No acute changes VSS
[2018-08-22 09:45] VITALS: BP 136/88
--- NOTE | 2018-08-22 09:45 | NUR ---
FURNACE COMBUSTION ANALYSTINSTRUCTOR NURSE NOTES ADMITTED PATIENT FOR ER, REPORT GIVEN BY SUSANA. ALERT ORIENTED X 3. NO ACUTE DISTRESS NOTED. BREATHING UNLABORED. NO SOB NOTED. IV ACCESS PATENT AND INTACT, NO REDNESS OR SWELLING NOTED. ORIENTED TO THE ROOM. PLACED ON TELE MONITOR. SAFETY MEASURE IN PLACE. CALL LIGHT WITHIN REACH. WILL CONTINUE TO MONITOR ACCORDINGLY.
[2018-08-22] MEDS: ALBUTEROL HALF STRENGTH 1.25 MG/3 ML VIAL.NEB NEB SCH ×3 (10:30→19:55)
[2018-08-22] MEDS: IPRATROPIUM NEB FS 0.5 MG/2.5 ML AMPUL.NEB NEB SCH ×3 (10:30→19:55)
[2018-08-22] MEDS ORDERED: clonazePAM 1 MG TABLET PO PRN (15:00)
--- NOTE | 2018-08-22 15:45 | NUR ---
DECK ENGINE OPERATOR NOTES INFORMED PATIENT ABOUT HOME MEDICATION BRENDA AND JOSE IF CAN BRING FROM HOME RAUL PER PHARMACY. PATIENT WILL SAID HE WILL SEE WHAT HE CAN TO TO HAVE SOMEONE BRING IT HERE AT THE HOSPITAL.
[2018-08-22] MEDS: APIXABAN 2.5 MG TABLET PO SCH (17:00)
[2018-08-22] MEDS ORDERED: [UNRECOGNIZED DRUG - OTHER] PO SCH (17:00)
--- NOTE | 2018-08-22 18:10 | NUR ---
AREA SUPERVISOR NOTES CLARIFIED IVF ORDERS WITH SALESPERSON MEN'S HATS HOLDEN URENA WITH ORDERS FOR D5 1/2 NS @ 50 MLS /HR PRN, NOTED AND CARRIED OUT.
[2018-08-22] MEDS ORDERED: IV D5/0.45 NACL 1,000 ML IV PRN (18:30)
[2018-08-22] MEDS ORDERED: IV D5/0.45 NACL 1,000 ML IV ONE (18:30)
--- NOTE | 2018-08-22 19:00 | NUR ---
MS RN NOTES PATIENT IN BED ALERT ORIENTED X 3, NO ACUTE DISTRESS NOTED, BREATHING UNLABORED. DENIED ANY PAIN AT THIS TIME. NEEDS ATTENDED AND ANTICIPATED. KEPT CLEAN DRY AND COMFORTABLE. HOB ELEVATED. SAFETY MEASURES IN PLACE. ENDORSED TO NIGHT NURSE FOR CONTINUITY OF CARE..
--- NOTE | 2018-08-22 19:30 | NUR ---
SEAMING INSPECTOR OPENING NOTES RECEIVED PATIENT AWAKE, RESTING IN BED. ALERT ORIENTED X 3. NO ACUTE DISTRESS NOTED. BREATHING UNLABORED. NO SOB NOTED. NO C/O ABDOMINAL PAIN VERBALIZED AT THIS TIME. IV ACCESS PATENT AND INTACT TO RAC, NO REDNESS OR SWELLING NOTED, RUNNING WITH IVF ORDERED. NPO ORDERED. AMBULATORY, STEADY. ON TELE MONITORING WITH SR WITH BBB, HR 72. BED IN LOW LOCKED POSITION. SAFETY MEASURE IN PLACE. CALL LIGHT WITHIN REACH. WILL CONTINUE TO MONITOR ACCORDINGLY.
[2018-08-22 20:00] VITALS: BP 116/74
[2018-08-22 20:32] VITALS: BP 116/74
[2018-08-22] MEDS: ATORVASTATIN 10 MG TABLET PO SCH (22:00)
[2018-08-23] VITALS: BP 132/80
[2018-08-23 00:11] VITALS: BP 132/80
[2018-08-23] MEDS: ALBUTEROL HALF STRENGTH 1.25 MG/3 ML VIAL.NEB NEB SCH ×4 (01:30→20:34)
[2018-08-23] MEDS: IPRATROPIUM NEB FS 0.5 MG/2.5 ML AMPUL.NEB NEB SCH ×4 (01:30→20:33)
--- NOTE | 2018-08-23 04:10 | NUR ---
REFUSED VITALS TO BE CHECKED PATIENT COMPLETELY REFUSED TO GET HIS VITALS SIGNS CHECKED DESPITE OF RISKS & BENEFIT EXPLANATIONS. WILL CONTINUE TO MONITOR.
--- NOTE | 2018-08-23 06:48 | NUR ---
WOOL AND PELT GRADER CLOSING NOTES PATIENT SLEPT WELL AT NIGHT. ALERT ORIENTED X 3. NO ACUTE DISTRESS NOTED. BREATHING UNLABORED. NO SOB NOTED. NO C/O ABDOMINAL PAIN VERBALIZED AT THIS TIME. IV ACCESS PATENT AND INTACT TO RAC, NO REDNESS OR SWELLING NOTED, PT WANTED TO BE DISCONNECTED FROM IV TO TAKE A BREAK. WILL ENDORSE TO AM RN TO CONNECT PATIENT BACK TO IVF WHEN PT AGREES. NPO ORDERED. AMBULATORY, STEADY. ON TELE MONITORING WITH SR WITH BBB, HR 70. BED IN LOW LOCKED POSITION. SAFETY MEASURE IN PLACE. CALL LIGHT WITHIN REACH. WILL ENDORSE TO AM RN FOR CONTINUITY OF CARE.
[2018-08-23 07:34] LABS: BASOPHILS % (AUTO) 0.7 % (0.0-2.0); EOSINOPHILS % (AUTO) 3.1 % (0.0-6.0); HEMATOCRIT 41 % (39-51); HEMOGLOBIN 12.9 g/dL (13.5-17.5); LYMPHOCYTES # (AUTO) 1.5 /CMM (0.8-4.8); LYMPHOCYTES % (AUTO) 28.2 % (20.0-44.0); MEAN CORPUSCULAR HGB CONC 32 g/dl (31.0-36.0); MEAN CORPUSCULAR VOLUME 89 fL (80-96); MONOCYTES # (AUTO) 0.4 /CMM (0.1-1.30); MONOCYTES % (AUTO) 7.9 % (2.0-12.0); NEUTROPHILS # (AUTO) 3.2 /CMM (1.8-8.9); NEUTROPHILS % (AUTO) 60.1 % (43.0-81.0); PLATELET COUNT (AUTO) 253 /CMM (150-450); RDW COEFFICIENT OF VARIATION 19.9 (11.5-15.0); RED BLOOD CELL COUNT(AUTO) 4.53 MIL/uL (4.5-6.0); WHITE BLOOD COUNT (AUTO) 5.4 K/uL (4.3-11.0)
[2018-08-23 07:47] LABS: CALCIUM, SERUM 8.9 mg/dL (8.5-10.1); CREATININE 0.7 mg/dL (0.6-1.3); MAGNESIUM 1.8 mg/dL (1.8-2.4); PHOSPHORUS 3.9 mg/dL (2.5-4.9); POTASSIUM 3.4 mmol/L (3.5-5.1)
[2018-08-23 07:48] LABS: THYROID STIMULATING HORMONE 1.877 uIU/mL (0.358-3.74)
[2018-08-23 08:00] VITALS: BP 104/63
--- NOTE | 2018-08-23 08:00 | NUR ---
RN NOTES RECEIVED PATIENT IN THE BED A/O X3. PER DR BARNHART D/C TELE TO [facility] AT THIS TIME. PATIENT STABLE HAS NO C/O PAIN AT THIS TIME. NO ACUTE RESPIRATORY DISTRESS. V/S STABLE. PATIENT NPO BECAUSE OF PANCREATITIS. HELD BP MEDICATION BECAUSE BP 104/ 65. PATIENT AMBULATORY SELF CARE. IV ACCESS ON RIGHT AC AREA INFUSING D51/2 NS T 75 ML HR.. NEEDS ATTENDED AND ANTICIPATED. CALL LIGHT WITHIN TO REACH. CONTINUED MONITORING.
[2018-08-23] MEDS: AMLODIPINE BESYLATE 5 MG TABLET PO SCH (08:56)
[2018-08-23] MEDS: APIXABAN 2.5 MG TABLET PO SCH (08:56)
[2018-08-23] MEDS ORDERED: POTASSIUM CHLORIDE 20 MEQ TAB.PRT.SR PO ONE (10:30)
--- NOTE | 2018-08-23 10:38 | NUR ---
MS/RN DVT Call received from radiologist - patient positive for DVT in right femoral distal vein. BLENDING PLANT OPERATOR Marni Lu notified.
[2018-08-23] MEDS ORDERED: IV NS 0.9% 1,000 ML IV PRN (11:00)
[2018-08-23] MEDS ORDERED: Potassium Chloride 40 MEQ in IV NS 0.9% 1,000 ML IV PRN (12:30)
--- NOTE | 2018-08-23 13:59 | NUR ---
RN NOTES PATIENT STABLE WALKING AROUND, NO ACUTE DISTRESS. CONTINUED MONITORING.
[2018-08-23] MEDS: APIXABAN 5 MG TABLET PO SCH ×2 (14:19→20:36)
[2018-08-23 16:00] VITALS: BP 131/86
--- NOTE | 2018-08-23 19:50 | NUR ---
RN OPENING NOTES PT IS AWAKE AND ALERT, SITTING IN BED. PT IS IN ROOM AIR, TOLERATING WELL, NO SIGNS OF DISTRESS, NO SIGNS OF LABORED BREATHING, NO SOB. IV ACCESS ON THE RIGHT AC 18G PATENT AND INTACT, KCL RUNNING. PATIENT AMBULATES AROUND THE UNIT, SO THE KCL IS NOT FINISHED BECAUSE IV IS BEING STOPPED EVERY TIME HE WANTS TO WALK. HE IS STEADY, SKIN IS INTACT. PT REPORTS INCREASE WEAKNESS ON THE BLE, HE DENIES PAIN WHEN WALKING, BUT IT IS GETTING DIFFICULT, DR. MUNROE IS AWARE, SHE WAS IN THE ROOM AND ASSESS THE PATIENT'S STRENGTHS. SAFETY MEASURES IN PLACED, CALL LIGHT WITHIN REACH, WILL CONTINUE TO MONITOR AND ASSESS PATIENT.
[2018-08-23 20:00] VITALS: BP 128/83
[2018-08-23] MEDS ORDERED: IV NS 0.9% 250 ML IV ONE (20:12)
[2018-08-23] MEDS ORDERED: CT SWABBABLE VALVE TRANS SET 1 EA INFUS.SET MC ONE (20:12)
[2018-08-23] MEDS ORDERED: IOHEXOL-350 100 ML VIAL IV ONE (20:12)
--- NOTE | 2018-08-23 20:14 | NUR ---
RN NOTES PT WENT TO X-RAY FOR CT PULMONARY ANGIOGRAM PER DR. MUNROE
--- NOTE | 2018-08-23 20:50 | NUR ---
RN NOTES PT CAME BACK FROM X-RAY, EATING FOOD. PT WAS DECLINING BREATHING TX BUT I OFFERED TO GIVE HIS MEDS FIRST THEN HE CAN DO BREATHING TX AND PT AGREED.
[2018-08-23] MEDS: ZOLPIDEM TARTRATE 10 MG TABLET PO PRN (21:04)
[2018-08-23] MEDS: ATORVASTATIN 10 MG TABLET PO SCH (21:04)
--- NOTE | 2018-08-23 21:04 | NUR ---
RN NOTES PT REQUESTED AMBIEN 10MG TO HELP HIM FALL ASLEEP TONIGHT
--- NOTE | 2018-08-23 21:06 | NUR ---
RN NOTES PT REFUSED TO BE CONNECT TO HIS IV FLUIDS KCL NS BECAUSE HE'S "TOSSING AND TURNING AT NIGHT AND IT'S NOT GONNA WORK OUT." I EXPLAINED TO HIM THE IMPORTANCE OF BEING CONNECTED SO THAT HIS LABS DO NOT KEEP GOING DOWN AND HIS ELECTROLYTES ARE PROPERLY REPLACED. PT STATES HE UNDERSTANDS BUT HE STILL DOESN'T WANT IT. HE'LL ASK ME TO CONNECT HIM EARLY IN THE MORNING
[2018-08-24] MEDS: ALBUTEROL HALF STRENGTH 1.25 MG/3 ML VIAL.NEB NEB SCH ×4 (01:30→19:30)
[2018-08-24] MEDS: IPRATROPIUM NEB FS 0.5 MG/2.5 ML AMPUL.NEB NEB SCH ×4 (01:30→19:30)
--- NOTE | 2018-08-24 07:00 | NUR ---
RN OPENING NOTES PT IS AWAKE AND ALERT, LAYING BED. PT IS IN ROOM AIR, TOLERATING WELL, NO SIGNS OF DISTRESS, NO SIGNS OF LABORED BREATHING, NO SOB. IV ACCESS ON THE RIGHT AC 18G PATENT AND INTACT, KCL FLUID IS NOT RUNNING, PT REFUSED, EXPLAINED TO HIM THE IMPORTANCE OF RECEIVING THE FLUID TO REPLACE HIS LOW ELECTROLYTES, HE VERBALIZES UNDERSTANDING BUT STILL REFUSED. SAFETY MEASURES IN PLACED, CALL LIGHT WITHIN REACH, WILL ENDORSE CONTINUITY OF CARE TO THE ONCOMING RN Addendum: 08/24/18 at 0738 by RAISA RIVAS RN RN CLOSING NOTES PT IS AWAKE AND ALERT, LAYING BED. PT IS IN ROOM AIR, TOLERATING WELL, NO SIGNS OF DISTRESS, NO SIGNS OF LABORED BREATHING, NO SOB. IV ACCESS ON THE RIGHT AC 18G PATENT AND INTACT, KCL FLUID IS NOT RUNNING, PT REFUSED, EXPLAINED TO HIM THE IMPORTANCE OF RECEIVING THE FLUID TO REPLACE HIS LOW ELECTROLYTES, HE VERBALIZES UNDERSTANDING BUT STILL REFUSED. SAFETY MEASURES IN PLACED, CALL LIGHT WITHIN REACH, WILL ENDORSE CONTINUITY OF CARE TO THE ONCOMING RN
--- NOTE | 2018-08-24 07:35 | NUR ---
RN NOTES PATIENT A/OX3, BREATHING EVEN AND UNLABORED, NO SOB NOTED, PATIENT REFUSES TO BE CONNECTED TO IV, EXPLAINED RISKS AND BENEFITS, PATIENT STATED, "LATER". WILL INFORM MD. PATIENT'S NEEDS ATTENDED, CALL LIGHT WITHIN REACH, WILL CONTINUE TO MONITOR.
[2018-08-24 08:00] VITALS: BP 150/92
[2018-08-24] MEDS: PANTOPRAZOLE 40 MG VIAL IV SCH (08:29)
[2018-08-24] MEDS: AMLODIPINE BESYLATE 5 MG TABLET PO SCH (08:31)
[2018-08-24] MEDS: APIXABAN 5 MG TABLET PO SCH ×2 (08:32→16:24)
[2018-08-24] MEDS: POTASSIUM CHLORIDE 20 MEQ TAB.PRT.SR PO SCH (09:50)
[2018-08-24] MEDS: MAG HYDROX/AL HYDROX/SIMETH 30 ML UDC PO PRN (13:48)
[2018-08-24 16:00] VITALS: BP 151/90
--- NOTE | 2018-08-24 18:29 | NUR ---
RN NOTES NO SIGNIFICANT CHANGE THIS SHIFT, PATIENT COMPLAIN OF ON AND OFF ABDOMINAL PAIN. WILL BE RELIEVED ON ITS OWN, PATIENT AWARE OF CLEAR LIQUID DIET. NO DISTRESS NOTED. NEEDS ATTENDED AND MET, CALL LIGHT WITHIN REACH, WILL ENDORSE TO HEALTH SERVICES DIRECTOR FOR KATHIA.
[2018-08-24 20:00] VITALS: BP 165/96
[2018-08-24] MEDS ORDERED: hydrALAZINE HCL 25 MG TABLET PO ONE (20:30)
[2018-08-24] MEDS: ATORVASTATIN 10 MG TABLET PO SCH (21:30)
[2018-08-24] MEDS: ZOLPIDEM TARTRATE 10 MG TABLET PO PRN (21:30)
[2018-08-25] MEDS: IPRATROPIUM NEB FS 0.5 MG/2.5 ML AMPUL.NEB NEB SCH ×3 (01:06→13:30)
[2018-08-25] MEDS: ALBUTEROL HALF STRENGTH 1.25 MG/3 ML VIAL.NEB NEB SCH ×3 (01:06→13:30)
[2018-08-25 06:00] VITALS: BP 129/72
--- NOTE | 2018-08-25 06:24 | NUR ---
MS RN NOTES AWAKE & RESPONSIVE. NOT IN ANY DISTRESS. NO SOB NOTED. DENIES ANY PAIN OR DISCOMFORT AT THIS TIME. WITH IV-HL PATENT & INTACT. MONITORED ACCORDINGLY. CALL LIGHT WITHIN REACH. BED IN LOWEST POSITION. SR UP X 2 FOR SAFETY. WILL ENDORSE TO NEXT SHIFT.
[2018-08-25 07:12] LABS: BASOPHILS % (AUTO) 0.8 % (0.0-2.0); EOSINOPHILS % (AUTO) 4.5 % (0.0-6.0); HEMATOCRIT 40 % (39-51); LYMPHOCYTES # (AUTO) 1.3 /CMM (0.8-4.8); LYMPHOCYTES % (AUTO) 22.2 % (20.0-44.0); MEAN CORPUSCULAR HGB CONC 33 g/dl (31.0-36.0); MEAN CORPUSCULAR VOLUME 89 fL (80-96); MONOCYTES # (AUTO) 0.7 /CMM (0.1-1.30); NEUTROPHILS # (AUTO) 3.5 /CMM (1.8-8.9); NEUTROPHILS % (AUTO) 60.5 % (43.0-81.0); PLATELET COUNT (AUTO) 235 /CMM (150-450); RED BLOOD CELL COUNT(AUTO) 4.48 MIL/uL (4.5-6.0); WHITE BLOOD COUNT (AUTO) 5.7 K/uL (4.3-11.0)
--- NOTE | 2018-08-25 07:20 | NUR ---
MSRN. PT RECEIVED A&0X3 TOLERATING ROOM AIR AND DENIES SOB OR PAIN AT THIS TIME. PT REPORTING POOR NIGHTS SLEEP AND REQUESTING MORE REST. PT WITH IVC INTACT AND SALINE FLUSH PATENT, NO IVF RUNNING AT THIS TIME. PT WITH CLEAR LIQUID DIET BUT ATE/TOLERATED A SANDWICH DURING PM SHIFT, WILL FOLLOW UP WITH MD. PT BED IN LOWEST LOCKED POSITION WITH HNADRAILSX2 AND CALL BARTH WITHIN REACH. PT BREIFED ON TODAY'S POC AND IS WITHOUT CONCERN OR COMPLAINT AT THIS TIME.
[2018-08-25 07:25] LABS: ALBUMIN 3.3 g/dL (3.4-5.0); BILIRUBIN,TOTAL 0.5 mg/dL (0.2-1.0); CALCIUM, SERUM 9.5 mg/dL (8.5-10.1); CREATININE 0.8 mg/dL (0.6-1.3); MAGNESIUM 1.9 mg/dL (1.8-2.4); PHOSPHORUS 4.3 mg/dL (2.5-4.9); POTASSIUM 4.2 mmol/L (3.5-5.1); TOTAL PROTEIN, SERUM 6.9 g/dL (6.4-8.2)
[2018-08-25 07:31] LABS: THYROID STIMULATING HORMONE 2.662 uIU/mL (0.358-3.74); URIC ACID 3.3 mg/dL (2.6-7.2)
[2018-08-25 08:00] VITALS: BP 131/89
[2018-08-25 08:58] VITALS: BP 131/89
[2018-08-25] MEDS: POTASSIUM CHLORIDE 20 MEQ TAB.PRT.SR PO SCH (08:58)
[2018-08-25] MEDS: AMLODIPINE BESYLATE 5 MG TABLET PO SCH (08:58)
[2018-08-25] MEDS: APIXABAN 5 MG TABLET PO SCH (08:58)
[2018-08-25] MEDS: PANTOPRAZOLE 40 MG VIAL IV SCH (08:59)
--- NOTE | 2018-08-25 10:53 | NUR ---
CHANNEL SUPERVISOR NN, CM AND SNF MADE AWARE PT DOES NOT HAVE CHEMO DURG TASIGNA. SNF AND CM TO FOLLOW UP AND ORGANIZE KATHIA. PT AWARE OF NEEDS AND IS CONTACTING MD MUNROE NOW.
--- NOTE | 2018-08-25 14:17 | NUR ---
MSRN. PT PREPARED FOR D/C PER OUTREACH CONSULTANT NN. PT TOLERATING ROOM AIR WITH SOB AND DENIES PAIN. PT IVC REMOVED AND NAD AT SITE. PT WITH ALL BELONGINGS AND DOCUMENT SIGNED. PT BRIEFED ON SO DC PACKET AND VERBALIZING UNDERSTANDING. D/C PACKET PROVIDED TO EMT CREW FOR SNF RN. PT ENDORSED TO LISHA MARK, LABS, HEALTH STATUS, NEEDS AND MEDS REVIEWED. DEEDEE TO FOLLOW UP WITH MD MUNROE R/T TO OUTSTANDING ONC MED. PT ALSO CONTACT AND REPORTS [facility] WILL PROVIDE. ALL NURSE DUTIES ATTENDED TO AND PT LEFT WITH EMT CREW WITHOUT CONCERN OR COMPLAINT.
== END 2018-08-25 13:00 | DRG 299 ==
LOC: ER 05:54 → TELE 08:57 → MED 08-23 08:14
PROVIDERS: ADMIT Registered Nurse; ATTEND Registered Nurse
DX: I82.411 Acute embolism and thrombosis of right femoral vein (principal); K85.20 Alcohol induced acute pancreatitis without necrosis or infection; E87.1 Hypo-osmolality and hyponatremia; K86.0 Alcohol-induced chronic pancreatitis; J44.1 Chronic obstructive pulmonary disease with (acute) exacerbation; D68.59 Other primary thrombophilia; C92.11 Chronic myeloid leukemia, BCR/ABL-positive, in remission; J90 Pleural effusion, not elsewhere classified; E87.6 Hypokalemia; Z86.711 Personal history of pulmonary embolism; I10 Essential (primary) hypertension; N40.0 Benign prostatic hyperplasia without lower urinary tract symptoms; D63.8 Anemia in other chronic diseases classified elsewhere; F32.9 Major depressive disorder, single episode, unspecified; R74.0 Nonspecific elevation of levels of transaminase and lactic acid dehydrogenase [LDH]; F17.210 Nicotine dependence, cigarettes, uncomplicated; E78.5 Hyperlipidemia, unspecified; Z86.718 Personal history of other venous thrombosis and embolism; I25.10 Atherosclerotic heart disease of native coronary artery without angina pectoris; F41.9 Anxiety disorder, unspecified
CPT/HCPCS: 36415; 71045-TC; 74018; 80048-TC; 80053-TC; 80061-TC; 80076-TC; 81000-TC; 83690-TC; 83735-TC; 83880; 84100-TC; 84443-TC; 84484-TC; 84550-TC; 85025-TC; 85652-TC; 85730-TC; 87081-TC; 93970-TC; A4606; C9113; G0378; J3480; J3490; J7030; J7050; Q9967; Z7610

== ENCOUNTER 2018-10-06 12:46 | Outpatient (CLI) | payer MEDICARE, OTHER ==
[~2018-10-06 12:46] MED LIST changes: -DOCU100C36 PO
[2018-10-06 14:41] LABS: BASOPHILS % (AUTO) 0.4 % (0.0-2.0); EOSINOPHILS % (AUTO) 1.2 % (0.0-6.0); HEMATOCRIT 41 % (39-51); HEMOGLOBIN 13.2 g/dL (13.5-17.5); LYMPHOCYTES # (AUTO) 1.4 /CMM (0.8-4.8); LYMPHOCYTES % (AUTO) 15.2 % (20.0-44.0); MEAN CORPUSCULAR HGB CONC 33 g/dl (31.0-36.0); MEAN CORPUSCULAR VOLUME 91 fL (80-96); MONOCYTES # (AUTO) 0.4 /CMM (0.1-1.30); MONOCYTES % (AUTO) 4.7 % (2.0-12.0); NEUTROPHILS # (AUTO) 7.2 /CMM (1.8-8.9); NEUTROPHILS % (AUTO) 78.5 % (43.0-81.0); PLATELET COUNT (AUTO) 241 /CMM (150-450); RED BLOOD CELL COUNT(AUTO) 4.45 MIL/uL (4.5-6.0); WHITE BLOOD COUNT (AUTO) 9.1 K/uL (4.3-11.0)
[2018-10-06 15:04] LABS: ALBUMIN 3.6 g/dL (3.4-5.0); BILIRUBIN,TOTAL 0.4 mg/dL (0.2-1.0); CALCIUM, SERUM 9.1 mg/dL (8.5-10.1); CREATININE 0.8 mg/dL (0.6-1.3); TOTAL PROTEIN, SERUM 7.6 g/dL (6.4-8.2)
[2018-10-06 15:40] LABS: THYROID STIMULATING HORMONE 0.51 uIU/mL (0.358-3.74)
== END 2018-10-06 23:59 | disposition home or self-care (01) ==
LOC: LAB 12:46
PROVIDERS: ATTEND Internal Medicine Hematology & Oncology
DX: I70.0 Atherosclerosis of aorta (principal); J90 Pleural effusion, not elsewhere classified; C92.11 Chronic myeloid leukemia, BCR/ABL-positive, in remission; E87.6 Hypokalemia; E78.5 Hyperlipidemia, unspecified; I25.10 Atherosclerotic heart disease of native coronary artery without angina pectoris; D50.9 Iron deficiency anemia, unspecified; D52.9 Folate deficiency anemia, unspecified; D51.8 Other vitamin B12 deficiency anemias; I11.9 Hypertensive heart disease without heart failure
CPT/HCPCS: 36415; 71046; 80053-TC; 82728-TC; 83540-TC; 84443-TC; 85025-TC; 85378-TC

== ENCOUNTER 2018-11-05 23:17 | Inpatient (IN) | payer MEDICARE, OTHER ==
[~2018-11-05] VITALS: Ht 182.9 cm; Wt 89.8 kg
[~2018-11-05 23:17] MED LIST changes: -AMLO5TAB7 PO; +AMLO5TAB9 PO
[2018-11-05] MEDS ORDERED: IV NS 0.9% 1,000 ML BAG IV ONE (23:30)
[2018-11-05 23:42] LABS: BASOPHILS # (AUTO) 0.1 /CMM (0.0-0.2); BASOPHILS % (AUTO) 0.8 % (0.0-2.0); EOSINOPHILS % (AUTO) 1.6 % (0.0-6.0); HEMATOCRIT 43 % (39-51); HEMOGLOBIN 14.1 g/dL (13.5-17.5); LYMPHOCYTES # (AUTO) 1.7 /CMM (0.8-4.8); LYMPHOCYTES % (AUTO) 20.7 % (20.0-44.0); MEAN CORPUSCULAR HGB CONC 33 g/dl (31.0-36.0); MEAN CORPUSCULAR VOLUME 96 fL (80-96); MONOCYTES # (AUTO) 0.7 /CMM (0.1-1.30); MONOCYTES % (AUTO) 8.9 % (2.0-12.0); NEUTROPHILS # (AUTO) 5.5 /CMM (1.8-8.9); PLATELET COUNT (AUTO) 228 /CMM (150-450); RED BLOOD CELL COUNT(AUTO) 4.44 MIL/uL (4.5-6.0); WHITE BLOOD COUNT (AUTO) 8.1 K/uL (4.3-11.0)
[2018-11-05 23:51] LABS: CALCIUM, SERUM 9.1 mg/dL (8.5-10.1); CARBON DIOXIDE 25 mmol/L (21-32); CHLORIDE 100 mmol/L (98-107); CREATININE 0.7 mg/dL (0.6-1.3); GLUCOSE 91 mg/dL (74-106); POTASSIUM 3.3 mmol/L (3.5-5.1); SODIUM SERUM 139 mmol/L (136-145); UREA NITROGEN, BLOOD 16 mg/dL (7-18)
[2018-11-06 00:03] LABS: B-TYPE NATRIURETIC PEPTIDE 13 PG/ML (0-125)
[2018-11-06] MEDS ORDERED: IV D5W 1,000 ML IV PRN (02:24)
[2018-11-06] MEDS ORDERED: IV NS 0.9% 1,000 ML IV PRN (02:24)
[2018-11-06] MEDS ORDERED: Z GUARD REMEDY 2 OZ OINT TP PRN (02:30)
[2018-11-06] MEDS ORDERED: MAG HYDROX/AL HYDROX/SIMETH 30 ML UDC PO PRN (02:30)
[2018-11-06] MEDS ORDERED: clonazePAM 1 MG TABLET PO PRN (02:30)
[2018-11-06] MEDS ORDERED: ACETAMINOPHEN 325 MG TABLET PO PRN (02:30)
[2018-11-06] MEDS ORDERED: MAGNESIUM HYDROXIDE 30 ML UDC PO PRN (02:30)
[2018-11-06] MEDS ORDERED: Folic acid 1 MG in IV D5W 50 ML IV SCH (02:30)
[2018-11-06] MEDS ORDERED: ONDANSETRON HCL/PF 4 MG/2 ML VIAL IVP PRN (02:30)
[2018-11-06] MEDS ORDERED: Thiamine 100 MG in IV D5W 50 ML IV SCH (02:30)
[2018-11-06] MEDS ORDERED: POTASSIUM CHLORIDE 20 MEQ TAB.PRT.SR PO ONE (02:30)
[2018-11-06] MEDS ORDERED: Folic acid 1 MG/0.2 ML VIAL ONE (03:59)
[2018-11-06] MEDS ORDERED: Thiamine 100 MG/ML VIAL ONE (03:59)
[2018-11-06] MEDS: HYDROCODONE/APAP 5/325MG 1 EACH TABLET PO PRN ×2 (04:08→12:48)
[2018-11-06 08:00] VITALS: BP 147/83
[2018-11-06] MEDS: AMLODIPINE BESYLATE 5 MG TABLET PO SCH (09:51)
[2018-11-06] MEDS: APIXABAN 2.5 MG TABLET PO SCH ×2 (09:52→17:43)
[2018-11-06 12:00] VITALS: BP 169/90
[2018-11-06 16:00] VITALS: BP 144/83
[2018-11-06] MEDS: oxyCODONE IR immediate release 5 MG PO PRN (19:36)
[2018-11-06 20:00] VITALS: BP 139/87
[2018-11-06] MEDS: [UNRECOGNIZED DRUG - OTHER] PO SCH (22:03)
[2018-11-06] MEDS: ATORVASTATIN 10 MG TABLET PO SCH (22:03)
[2018-11-06] MEDS: Thiamine 100 MG in IV D5W 50 ML IV SCH (22:03)
[2018-11-06] MEDS: Folic acid 1 MG in IV D5W 50 ML IV SCH (22:28)
[2018-11-06] MEDS: ZOLPIDEM TARTRATE 5 MG TABLET PO PRN (23:27)
[2018-11-07] MEDS: oxyCODONE IR immediate release 5 MG PO PRN ×4 (04:54→23:27)
[2018-11-07 08:00] VITALS: BP 129/79
[2018-11-07] MEDS: APIXABAN 2.5 MG TABLET PO SCH ×2 (08:34→16:39)
[2018-11-07] MEDS: AMLODIPINE BESYLATE 5 MG TABLET PO SCH (08:34)
[2018-11-07 16:00] VITALS: BP 139/91
[2018-11-07 16:12] LABS: ALBUMIN 4.4 g/dL (3.4-5.0); CALCIUM, SERUM 9.5 mg/dL (8.5-10.1); CREATININE 1.1 mg/dL (0.6-1.3); MAGNESIUM 2.1 mg/dL (1.8-2.4); PHOSPHORUS 3.5 mg/dL (2.5-4.9); POTASSIUM 3.8 mmol/L (3.5-5.1); TOTAL PROTEIN, SERUM 8.1 g/dL (6.4-8.2)
[2018-11-07 16:23] LABS: BASOPHILS # (AUTO) 0.1 /CMM (0.0-0.2); BASOPHILS % (AUTO) 0.7 % (0.0-2.0); EOSINOPHILS % (AUTO) 2.8 % (0.0-6.0); HEMATOCRIT 45 % (39-51); HEMOGLOBIN 14.9 g/dL (13.5-17.5); LYMPHOCYTES # (AUTO) 1.6 /CMM (0.8-4.8); LYMPHOCYTES % (AUTO) 19.2 % (20.0-44.0); MEAN CORPUSCULAR HGB CONC 33 g/dl (31.0-36.0); MEAN CORPUSCULAR VOLUME 97 fL (80-96); MONOCYTES # (AUTO) 1.1 /CMM (0.1-1.30); MONOCYTES % (AUTO) 13.1 % (2.0-12.0); NEUTROPHILS # (AUTO) 5.4 /CMM (1.8-8.9); NEUTROPHILS % (AUTO) 64.2 % (43.0-81.0); PLATELET COUNT (AUTO) 227 /CMM (150-450); RED BLOOD CELL COUNT(AUTO) 4.66 MIL/uL (4.5-6.0); WHITE BLOOD COUNT (AUTO) 8.4 K/uL (4.3-11.0)
[2018-11-07] MEDS: HYDROCODONE/APAP 5/325MG 1 EACH TABLET PO PRN (19:56)
[2018-11-07] MEDS: [UNRECOGNIZED DRUG - OTHER] PO SCH (19:56)
[2018-11-07 20:00] VITALS: BP 103/69
[2018-11-07] MEDS: ATORVASTATIN 10 MG TABLET PO SCH (20:37)
[2018-11-07] MEDS: ZOLPIDEM TARTRATE 5 MG TABLET PO PRN (20:37)
[2018-11-07] MEDS: Thiamine 100 MG in IV D5W 50 ML IV SCH (20:39)
[2018-11-07] MEDS: Folic acid 1 MG in IV D5W 50 ML IV SCH (20:39)
[2018-11-08] VITALS: BP 114/70
[2018-11-08 04:00] VITALS: BP 92/60
[2018-11-08] MEDS: HYDROCODONE/APAP 5/325MG 1 EACH TABLET PO PRN (04:44)
[2018-11-08] MEDS: oxyCODONE IR immediate release 5 MG PO PRN ×2 (05:25→11:29)
[2018-11-08 08:00] VITALS: BP 104/70
[2018-11-08 08:23] VITALS: BP 104/70
[2018-11-08] MEDS: AMLODIPINE BESYLATE 5 MG TABLET PO SCH (08:23)
[2018-11-08] MEDS: APIXABAN 2.5 MG TABLET PO SCH (08:24)
[2018-11-08] MEDS ORDERED: TEMAZEPAM 15 MG CAPSULE PO PRN (12:30)
[2018-11-08] MEDS ORDERED: THIAMINE HCL 100 MG TABLET PO SCH (13:00)
[2018-11-08] MEDS ORDERED: FOLIC ACID 1 MG TABLET PO SCH (13:00)
[2018-11-08] MEDS ORDERED: APIXABAN 2.5 MG TABLET PO SCH (17:00)
[2019-01-01] MEDS ORDERED: METH4TAB17 PO (13:04)
== END 2018-11-08 13:27 | disposition left against medical advice (07) | DRG 894 ==
LOC: ER 23:18 → TELE1 11-06 02:25
PROVIDERS: ADMIT Nurse Practitioner Acute Care; ATTEND Internal Medicine
DX: F10.229 Alcohol dependence with intoxication, unspecified (principal); G92 Toxic encephalopathy; C92.11 Chronic myeloid leukemia, BCR/ABL-positive, in remission; Y90.7 Blood alcohol level of 200-239 mg/100 ml; Z86.711 Personal history of pulmonary embolism; I10 Essential (primary) hypertension; I25.10 Atherosclerotic heart disease of native coronary artery without angina pectoris; E78.5 Hyperlipidemia, unspecified; J44.9 Chronic obstructive pulmonary disease, unspecified; N40.0 Benign prostatic hyperplasia without lower urinary tract symptoms; Z86.718 Personal history of other venous thrombosis and embolism; E78.00 Pure hypercholesterolemia, unspecified; Z79.01 Long term (current) use of anticoagulants; F41.9 Anxiety disorder, unspecified; F31.9 Bipolar disorder, unspecified; F17.210 Nicotine dependence, cigarettes, uncomplicated
CPT/HCPCS: 36415; 71045-TC; 80048-TC; 80053-TC; 80061-TC; 80305; 83735-TC; 83880; 84100-TC; 84484-TC; 85025-TC; 85378-TC; 85730-TC; 87081-TC; 93307-TC; G0378; G0480; J3411; J3490; J7030; J7060; J7070

== ENCOUNTER 2018-11-27 03:13 | Emergency (ER) | payer MEDICARE, MEDICAID ==
[~2018-11-27] VITALS: Ht 182.9 cm; Wt 90.7 kg
--- NOTE | 2018-11-27 03:23 | NUR ---
TO ER BED 14 C/C OF ETOH. AA/OX4. SKIN PINK, WARM, DRY. NO S/S OF SOB. AMBULATED TO BED WITH STABLE GAIT. MOVES ALL EXTREMITIES WELL. PT DENIES ANY COMPLAINTS OF N/V/D. VSS. NAD. STABLE CONDITION. WILL CONTINUE TO MONITOR. Addendum: 11/27/18 at 0329 by OMAR "CAN I HAVE A BED NOW, I JUST WANT TO GO TO SLEEP." "I HAVE BEEN ON THE STREETS."
[2018-11-27 03:41] LABS: BASOPHILS # (AUTO) 0.1 /CMM (0.0-0.2); BASOPHILS % (AUTO) 0.6 % (0.0-2.0); EOSINOPHILS % (AUTO) 0.3 % (0.0-6.0); HEMATOCRIT 43 % (39-51); HEMOGLOBIN 14.5 g/dL (13.5-17.5); LYMPHOCYTES # (AUTO) 1.5 /CMM (0.8-4.8); LYMPHOCYTES % (AUTO) 17.9 % (20.0-44.0); MEAN CORPUSCULAR HGB CONC 34 g/dl (31.0-36.0); MEAN CORPUSCULAR VOLUME 96 fL (80-96); MONOCYTES # (AUTO) 0.4 /CMM (0.1-1.30); MONOCYTES % (AUTO) 5.2 % (2.0-12.0); NEUTROPHILS # (AUTO) 6.4 /CMM (1.8-8.9); PLATELET COUNT (AUTO) 330 /CMM (150-450); RED BLOOD CELL COUNT(AUTO) 4.47 MIL/uL (4.5-6.0); WHITE BLOOD COUNT (AUTO) 8.4 K/uL (4.3-11.0)
[2018-11-27 03:51] LABS: CALCIUM, SERUM 8.8 mg/dL (8.5-10.1); CARBON DIOXIDE 26 mmol/L (21-32); CHLORIDE 103 mmol/L (98-107); CREATININE 0.9 mg/dL (0.6-1.3); GLUCOSE 89 mg/dL (74-106); POTASSIUM 3.6 mmol/L (3.5-5.1); SODIUM SERUM 142 mmol/L (136-145); UREA NITROGEN, BLOOD 10 mg/dL (7-18)
--- NOTE | 2018-11-27 03:53 | NUR ---
RESTING COMFORTABLY IN BED. EASILY AROUSED. STABLE CONDITION. NAD. VSS. WILL CONTINUE TO MONITOR.
[2018-11-27 04:03] LABS: ALANINE AMINOTRANSFERASE 31 U/L (12-78); ALBUMIN 3.8 g/dL (3.4-5.0); ALKALINE PHOSPHATASE 90 U/L (46-116); ASPARTATE AMINOTRANSFERASE 29 U/L (15-37); B-TYPE NATRIURETIC PEPTIDE 16 PG/ML (0-125); BILIRUBIN,DIRECT 0.1 mg/dL (0.0-0.2); BILIRUBIN,TOTAL 0.4 mg/dL (0.2-1.0); TOTAL PROTEIN, SERUM 7.4 g/dL (6.4-8.2)
--- NOTE | 2018-11-27 04:33 | NUR ---
US AT BEDSIDE
--- NOTE | 2018-11-27 05:58 | NUR ---
Patient discharged to home in stable condition. Written and verbal after care instructions given. Patient verbalizes understanding of instruction. AMBULATED WITH STABLE GAIT. SARTHAK. DARIAN.
[2018-11-27 06:01] VITALS: BP 132/76
[2019-01-01] MEDS ORDERED: METH4TAB17 PO (13:04)
== END 2018-11-27 06:02 | disposition home or self-care (01) ==
LOC: ER 03:16
DX: I45.10 Unspecified right bundle-branch block (principal); I25.2 Old myocardial infarction; I10 Essential (primary) hypertension; F17.200 Nicotine dependence, unspecified, uncomplicated; Z86.718 Personal history of other venous thrombosis and embolism; Z98.890 Other specified postprocedural states; Z60.2 Problems related to living alone; Z88.8 Allergy status to other drugs, medicaments and biological substances
CPT/HCPCS: 36415; 71045-TC; 80048-TC; 80076-TC; 83880; 84484-TC; 85025-TC; 85730-TC; 93971-TC

== ENCOUNTER 2018-12-25 03:03 | Emergency (ER) | payer MEDICARE, MEDICAID ==
[~2018-12-25] VITALS: Ht 185.4 cm; Wt 90.7 kg
[2018-12-25 03:11] VITALS: BP 150/84
[2019-01-01] MEDS ORDERED: METH4TAB17 PO (13:04)
== END 2018-12-25 06:08 | disposition home or self-care (01) ==
LOC: ER 03:05
DX: F10.10 Alcohol abuse, uncomplicated (principal); I10 Essential (primary) hypertension; Z88.8 Allergy status to other drugs, medicaments and biological substances; Z60.2 Problems related to living alone; Z79.899 Other long term (current) drug therapy; Y90.9 Presence of alcohol in blood, level not specified
CPT/HCPCS: 99283; A4606

== ENCOUNTER 2018-12-31 02:47 | Inpatient (IN) | payer MEDICARE, MEDICAID ==
[~2018-12-31] VITALS: Ht 182.9 cm; Wt 85.7 kg
--- NOTE | 2018-12-31 02:51 | NUR ---
PT BIBRA FROM MOT FOR ETOH. AOX3. NAD NOTED. RESP EVEN AND UNLABORED. PT ON MONITOR IN BED 12. VSS. WILL CONTINUE TO MONITOR.
[2018-12-31] MEDS ORDERED: IV NS 0.9% 1,000 ML BAG IV ONE ×2 (03:00→04:00)
--- NOTE | 2018-12-31 03:15 | NUR ---
BLOOD DRAWN AND GIVEN TO LAB
--- NOTE | 2018-12-31 03:18 | NUR ---
TECH AT BEDSIDE FOR EKG
--- NOTE | 2018-12-31 03:22 | NUR ---
RADIOLOGY AT BEDSIDE FOR XRAY
[2018-12-31 03:40] LABS: CALCIUM, SERUM 8.8 mg/dL (8.5-10.1); CARBON DIOXIDE 26 mmol/L (21-32); CHLORIDE 101 mmol/L (98-107); GLUCOSE 120 mg/dL (74-106); POTASSIUM 3.5 mmol/L (3.5-5.1); SODIUM SERUM 143 mmol/L (136-145); UREA NITROGEN, BLOOD 10 mg/dL (7-18)
[2018-12-31 03:43] LABS: BASOPHILS # (AUTO) 0.1 /CMM (0.0-0.2); BASOPHILS % (AUTO) 1.5 % (0.0-2.0); EOSINOPHILS % (AUTO) 1.3 % (0.0-6.0); HEMATOCRIT 43 % (39-51); HEMOGLOBIN 14.5 g/dL (13.5-17.5); LYMPHOCYTES # (AUTO) 1.4 /CMM (0.8-4.8); LYMPHOCYTES % (AUTO) 31.3 % (20.0-44.0); MEAN CORPUSCULAR HGB CONC 34 g/dl (31.0-36.0); MEAN CORPUSCULAR VOLUME 97 fL (80-96); MONOCYTES # (AUTO) 0.3 /CMM (0.1-1.30); MONOCYTES % (AUTO) 6.2 % (2.0-12.0); NEUTROPHILS # (AUTO) 2.7 /CMM (1.8-8.9); NEUTROPHILS % (AUTO) 59.7 % (43.0-81.0); PLATELET COUNT (AUTO) 295 /CMM (150-450); RED BLOOD CELL COUNT(AUTO) 4.45 MIL/uL (4.5-6.0); SERUM AMMONIA 13 umol/L (11-32); WHITE BLOOD COUNT (AUTO) 4.6 K/uL (4.3-11.0)
[2018-12-31 03:46] LABS: ALANINE AMINOTRANSFERASE 31 U/L (12-78); ALBUMIN 3.8 g/dL (3.4-5.0); ALKALINE PHOSPHATASE 83 U/L (46-116); ASPARTATE AMINOTRANSFERASE 32 U/L (15-37); BILIRUBIN,DIRECT 0.1 mg/dL (0.0-0.2); BILIRUBIN,TOTAL 0.5 mg/dL (0.2-1.0); LIPASE 447 U/L (73-393); TOTAL PROTEIN, SERUM 7.2 g/dL (6.4-8.2)
[2018-12-31] MEDS ORDERED: MORPHINE SULFATE INJ 4 MG/ML DISP.SYRIN ONE (03:59)
[2018-12-31] MEDS ORDERED: ONDANSETRON HCL/PF 4 MG/2 ML VIAL ONE (03:59)
[2018-12-31] MEDS ORDERED: PIPERACILLIN /TAZOBACTAM 3.375 G VIAL IV ONE (03:59)
[2018-12-31] MEDS ORDERED: IPRATROPIUM NEB FS 0.5 MG/2.5 ML AMPUL.NEB NEB ONE (04:00)
[2018-12-31] MEDS ORDERED: ONDANSETRON HCL/PF 4 MG/2 ML VIAL IVP ONE (04:00)
[2018-12-31] MEDS ORDERED: ALBUTEROL FS 2.5 MG/3 ML VIAL.NEB NEB ONE (04:00)
[2018-12-31] MEDS ORDERED: PIPERACILLIN /TAZOBACTAM 3.375 G in IV D5W 50 ML IV ONE (04:00)
[2018-12-31] MEDS ORDERED: MORPHINE SULFATE INJ 2 MG/ML DISP.SYRIN IV ONE (04:00)
[2018-12-31] MEDS ORDERED: CT SWABBABLE VALVE TRANS SET 1 EA INFUS.SET MC ONE (04:01)
[2018-12-31] MEDS ORDERED: IV NS 0.9% 250 ML IV ONE (04:01)
[2018-12-31] MEDS ORDERED: IOHEXOL-350 100 ML VIAL IV ONE (04:01)
--- NOTE | 2018-12-31 04:11 | NUR ---
PT TAKEN TO RADIOLOGY VIA FRIDA
[2018-12-31] MEDS ORDERED: ALBUTEROL FS 2.5 MG/3 ML VIAL.NEB ONE (04:45)
[2018-12-31] MEDS ORDERED: IPRATROPIUM NEB FS 0.5 MG/2.5 ML AMPUL.NEB ONE (04:45)
[2018-12-31] MEDS ORDERED: methylPREDNISolone SOD SUCC 125 MG/2ML VIAL ONE (05:15)
[2018-12-31] MEDS ORDERED: methylPREDNISolone SOD SUCC 125 MG/2ML VIAL IV ONE (05:30)
--- NOTE | 2018-12-31 05:48 | NUR ---
BED 315-1
--- NOTE | 2018-12-31 05:57 | NUR ---
REPORT GIVEN TO REBECCA PNOCE FOR KATHIA
[2018-12-31] MEDS ORDERED: MAGNESIUM HYDROXIDE 30 ML UDC PO PRN (06:00)
[2018-12-31] MEDS ORDERED: ACETAMINOPHEN 325 MG TABLET PO PRN (06:00)
[2018-12-31] MEDS ORDERED: IV NS 0.9% 1,000 ML IV PRN (06:00)
[2018-12-31] MEDS ORDERED: IPRATROPIUM NEB FS 0.5 MG/2.5 ML AMPUL.NEB NEB PRN (06:00)
[2018-12-31] MEDS ORDERED: HYDROCODONE/APAP 5/325MG 1 EACH TABLET PO PRN (06:00)
[2018-12-31] MEDS ORDERED: MAG HYDROX/AL HYDROX/SIMETH 30 ML UDC PO PRN (06:00)
[2018-12-31] MEDS ORDERED: ALBUTEROL FS 2.5 MG/0.5 ML VIAL.NEB NEB PRN (06:00)
[2018-12-31] MEDS ORDERED: ONDANSETRON HCL/PF 4 MG/2 ML VIAL IVP PRN (06:00)
--- NOTE | 2018-12-31 06:43 | NUR ---
REPORT RECEIVED FROM ER, ROOM CLEAN AND READY
[2018-12-31] MEDS ORDERED: PANTOPRAZOLE 40 MG TABLET.DR PO SCH (07:30)
[2018-12-31 08:00] VITALS: BP 145/84
--- NOTE | 2018-12-31 08:05 | NUR ---
MS RN RECEIVED A NEW ADMISSION, AWAKE,ALERT,ORIENTED X4,CAME IN FROM ER W/ DX OF PANCREATITIS AND COPD EXACERBATION, COMPLAINING OF ABD PAIN WILL MONITOR PATIENT'S CONDITION.
--- NOTE | 2018-12-31 08:45 | NUR ---
MS FERNANDEZ BREAKFAST SERVED,DUE MEDS GIVEN,TOLERATED WELL.
[2018-12-31] MEDS ORDERED: IPRA4AER INH (09:11)
--- NOTE | 2018-12-31 11:35 | NUR ---
MS REBECCA WAS SEEN BY GEOFF PUENTES W/ ORDERS MADE AND CARRIED OUT.
[2018-12-31] MEDS: PANTOPRAZOLE 40 MG VIAL IV SCH (12:48)
[2018-12-31] MEDS: methylPREDNISolone SOD SUCC 40 MG/ML VIAL IV SCH ×2 (12:49→20:44)
[2018-12-31] MEDS: AMLODIPINE BESYLATE 5 MG TABLET PO SCH (12:49)
[2018-12-31] MEDS: MORPHINE SULFATE INJ 2 MG/ML DISP.SYRIN IV PRN ×3 (12:50→20:45)
[2018-12-31 16:00] VITALS: BP 144/91
--- NOTE | 2018-12-31 18:46 | NUR ---
MS RN ON BED, NO DISTRESS NOTED.
--- NOTE | 2018-12-31 19:30 | NUR ---
RN NOTES RECEIVED PT. AWAKE ON BED, A/OX3 , SR WITH PAC ON TELE MONITOR HR-86, PT. REFUSED HIS IV FLUID, NO PAIN NOTED, AT THIS TIME, NO SOB, CALL LIGHT WITHIN REACH, [id number], CONTINUE TO MONITOR
[2018-12-31 20:00] VITALS: BP 151/94
--- NOTE | 2018-12-31 20:58 | NUR ---
RN NOTES COMPALINED OF ABDOMINAL PAIN- MORPHINE 2 MG IV GIVEN ORDERED. V/S STABLE
[2018-12-31] MEDS: TEMAZEPAM 7.5 MG CAPSULE PO PRN (21:55)
--- NOTE | 2018-12-31 21:58 | NUR ---
RN NOTES PT. ASKED FOR SLEEPING PILL- RESTORIL 7.5MG PO GIVEN ORDERED, V/S STABLE
[2019-01-01] VITALS: BP 155/93
[2019-01-01] MEDS: PANTOPRAZOLE 40 MG VIAL IV SCH ×3 (00:27→23:03)
--- NOTE | 2019-01-01 00:40 | NUR ---
RN NOTES COMPLAINED OF ABDOMINAL PAIN- MORPHINE 2 MG IV GIVEN ORDERED
[2019-01-01] MEDS: MORPHINE SULFATE INJ 2 MG/ML DISP.SYRIN IV PRN ×6 (00:48→21:25)
[2019-01-01 04:00] VITALS: BP 157/98
[2019-01-01] MEDS: methylPREDNISolone SOD SUCC 40 MG/ML VIAL IV SCH ×3 (04:29→21:24)
--- NOTE | 2019-01-01 04:30 | NUR ---
RN NOTES COMPLAINED OF ABDOMINAL APIN- [id number] IV GIVEN ORDERED, V/S STABLE
--- NOTE | 2019-01-01 06:11 | NUR ---
RN NOTES AWAKE, WATCHING TV, DENIES PAIN AT THIS TIME, NO SOB, MORNING CARE RENDERED, CALLLIGHT WITHIN REACH, [id number], PT. NEEDS ATTENDED
[2019-01-01 07:38] LABS: HEMATOCRIT 41 % (39-51); HEMOGLOBIN 13.7 g/dL (13.5-17.5); LYMPHOCYTES % (AUTO) 5.8 % (20.0-44.0); MEAN CORPUSCULAR HGB CONC 34 g/dl (31.0-36.0); MEAN CORPUSCULAR VOLUME 96 fL (80-96); MONOCYTES % (AUTO) 5.7 % (2.0-12.0); NEUTROPHILS % (AUTO) 88.4 % (43.0-81.0); PLATELET COUNT (AUTO) 275 /CMM (150-450); WHITE BLOOD COUNT (AUTO) 6.6 K/uL (4.3-11.0)
[2019-01-01 07:39] LABS: BASOPHILS % (AUTO) 0.1 % (0.0-2.0); LYMPHOCYTES # (AUTO) 0.4 /CMM (0.8-4.8); MONOCYTES # (AUTO) 0.4 /CMM (0.1-1.30); NEUTROPHILS # (AUTO) 5.8 /CMM (1.8-8.9)
[2019-01-01 07:50] LABS: CALCIUM, SERUM 9.2 mg/dL (8.5-10.1); CREATININE 1.2 mg/dL (0.6-1.3); MAGNESIUM 1.8 mg/dL (1.8-2.4); PHOSPHORUS 3.5 mg/dL (2.5-4.9); POTASSIUM 4.2 mmol/L (3.5-5.1)
--- NOTE | 2019-01-01 07:50 | NUR ---
RN NOTES PATIENT A/OX4, WALKING AROUND THE HALLWAY, ASKING FOR PAIN MEDICATION. INFORMED PATIENT ITS DUE AT 0830. PATIENT VERBALIZED UNDERSTANDING. REFUSING TO BE CONNECTED TO IVF. NEEDS ATTENDED, CALL LIGHT WITHIN REACH, WILL CONTINUE TO MONITOR.
[2019-01-01 08:00] VITALS: BP 135/95
[2019-01-01] MEDS: AMLODIPINE BESYLATE 5 MG TABLET PO SCH (08:25)
[2019-01-01] MEDS ORDERED: METH4TAB17 PO (13:04)
[2019-01-01 16:00] VITALS: BP 150/94
[2019-01-01] MEDS ORDERED: AMLODIPINE BESYLATE 5 MG TABLET PO SCH (16:00)
[2019-01-01] MEDS ORDERED: clonazePAM 1 MG TABLET PO PRN (16:00)
[2019-01-01] MEDS: APIXABAN 5 MG TABLET PO SCH (16:41)
--- NOTE | 2019-01-01 19:00 | NUR ---
RN MS OPENING NOTES RECEIVED PATIENT IN BED, AWAKE ALERT AND ORIENTED X3, ABLE TO MAKE NEEDS KNOWN, RESPIRATIONS EVEN AND UNLABORED WITH EQUAL RISE AND FALL OF CHEST, DENIES ANY PAIN OR DISCOMFORT AT THIS TIME, IVF TO RIGHT AC #20 G INTACT AND PATENT, NO REDNESS, NO INFILTRATION PRESENT, REFUSING IVF AT THIS TIME. FLUIDS OFFERED, ORIENTED TO STAFF AND CALL LIGHT AND KEPT WITHIN REACH, SAFETY PRECAUTIONS IN PLACE, LOW BED AND LOCKED, ALL NEEDS ATTENDED WILL CONTINUE TO MONITOR AND ADDRESS NEEDS.
--- NOTE | 2019-01-01 19:30 | NUR ---
RN NOTES PATIENT IN NO DISTRESS, TOLERATING CURRENT DIET, PATIENT ABLE TO AMBULATE IN THE HALLWAY, ALL NEEDS ATTENDED, CALL LIGHTW ITHINR EACH, NEEDS ATTENDED, ENDORSED TO BODY RECALL INSTRUCTOR FOR KATHIA.
[2019-01-01 20:00] VITALS: BP 147/86
--- NOTE | 2019-01-01 21:25 | NUR ---
RN MS NOTES PATIENT COMPLAINT OF PAIN TO ABDOMEN AREA 06/16 STATES " ACHY PAIN, CONSTANTLY THERE" REQUESTING FOR MORPHINE VS TAKEN WNL 147/86,77,20,98.7,97% RA MORPHINE PRN GIVEN ORDERED WILL CONTINUE TO MONITOR FOR EFFECTIVENESS
[2019-01-01] MEDS: TEMAZEPAM 7.5 MG CAPSULE PO PRN (23:00)
--- NOTE | 2019-01-01 23:00 | NUR ---
RN MS NOTES PATIENT COMPLAINT UNABLE TO SLEEP REQUESTING FOR RESTORIL SLEEP AID, PRN GIVEN WILL CONTINUE TO MONITOR FOR EFFECTIVENESS.
[2019-01-02] MEDS: MORPHINE SULFATE INJ 2 MG/ML DISP.SYRIN IV PRN ×5 (04:10→20:24)
--- NOTE | 2019-01-02 04:10 | NUR ---
RN MS NOTES PATIENT COMPLAINT OF PAIN 8/10 ABDOMEN REQUESTING FOR MORPHINE VS WNL 147/84,76,18,98%. PRN MORPHINE GIVEN ORDERED WILL CONTINUE TO MONITOR FOR EFFECTIVENESS
[2019-01-02] MEDS: methylPREDNISolone SOD SUCC 40 MG/ML VIAL IV SCH ×3 (04:17→20:23)
--- NOTE | 2019-01-02 06:38 | NUR ---
RN MS CLOSING NOTES PATIENT IN BED, AWAKE ALERT AND ORIENTED X3, ABLE TO MAKE NEEDS KNOWN, RESPIRATIONS EVEN AND UNLABORED WITH EQUAL RISE AND FALL OF CHEST, DENIES ANY PAIN OR DISCOMFORT AT THIS TIME, IVF TO RIGHT AC #20 G INTACT AND PATENT, NO REDNESS, NO INFILTRATION PRESENT, REFUSED IVF THROUGHOUT THROUGHOUT SHIFT. FLUIDS OFFERED, CALL LIGHT AND KEPT WITHIN REACH, SAFETY PRECAUTIONS IN PLACE, LOW BED AND LOCKED, ALL NEEDS ATTENDED WILL CONTINUE TO MONITOR AND ADDRESS NEEDS AND ENDORSE TO NEXT SHIFT.
--- NOTE | 2019-01-02 07:30 | NUR ---
RN MS NOTES PT IN BED, AWAKE, ALERT AND ORIENTED, NO COMPLAINT AT THIS TIME, RESPIRATIONS NORMAL, PT WALKING ALONG THE HALLWAY, REFUSING IV FLUIDS, CALL LIGHT WITHIN REACH, NEEDS ATTENDED.
[2019-01-02 08:00] VITALS: BP 132/86
[2019-01-02] MEDS: AMLODIPINE BESYLATE 5 MG TABLET PO SCH (08:09)
[2019-01-02] MEDS: APIXABAN 5 MG TABLET PO SCH ×2 (11:40→16:09)
[2019-01-02] MEDS: PANTOPRAZOLE 40 MG VIAL IV SCH ×2 (12:01→23:57)
[2019-01-02 12:02] LABS: CALCIUM, SERUM 9.2 mg/dL (8.5-10.1); POTASSIUM 4.2 mmol/L (3.5-5.1)
[2019-01-02 16:00] VITALS: BP 144/87
--- NOTE | 2019-01-02 18:52 | NUR ---
RN MS NOTES PT AWAKE, WALKING AROUND HIS ROOM AND HALLWAY, PAIN MEDICATION GIVEN ORDERED FOR ABDOMINAL PAIN, NO COMPLAINT OF NAUSEA, NO VOMITING NOTED, WITH STEADY GAIT, TOLERATING CURRENT DIET WELL, CALL LIGHT WITHIN REACH, ALL NEEDS ATTENDED.
--- NOTE | 2019-01-02 19:20 | NUR ---
MS RN NOTE RECEIVED PT IN STABLE CONDITION A&O X4, ABLE TO MAKE NEEDS KNOWN. NO SIGNS OF SOB OR DISTRESS. PT CURRENTLY WALKING WITH STEADY GAIT AROUND FLOOR. NO C/O PAIN. NO C/O OF N/V. SAFETY PRECAUTIONS IN PLACE: BED LOW, LOCKED, UPPER RAILS UP, AND CALL LIGHT WITHIN REACH WILL CONT TO MONITOR.
[2019-01-02 20:54] VITALS: BP 132/76
[2019-01-02] MEDS: TEMAZEPAM 7.5 MG CAPSULE PO PRN (22:12)
[2019-01-03] MEDS: MORPHINE SULFATE INJ 2 MG/ML DISP.SYRIN IV PRN ×5 (01:32→14:53)
[2019-01-03] MEDS: methylPREDNISolone SOD SUCC 40 MG/ML VIAL IV SCH ×2 (04:13→13:48)
--- NOTE | 2019-01-03 06:19 | NUR ---
MS RN NOTE PT IN STABLE CONDITION A&O X4, ABLE TO MAKE NEEDS KNOWN. NO SIGNS OF SOB OR DISTRESS. PAIN MANAGED WITH MORPHINE 2 MG Q4H ORDERED BY MD. NO C/O OF N/V. SAFETY PRECAUTIONS IN PLACE: BED LOW, LOCKED, UPPER RAILS UP, AND CALL LIGHT WITHIN REACH WILL CONT TO MONITOR AND ENDORSE TO NEXT SHIFT FOR KATHIA.
--- NOTE | 2019-01-03 07:30 | NUR ---
RN MS NOTES PT IN BED, AWAKE, ALERT AND ORIENTED, NO COMPLAINT AT THIS TIME, RESPIRATIONS NORMAL, CALL LIGHT WITHIN REACH, AMBULATES IN THE ROOM WITH STEADY GAIT.
[2019-01-03 07:37] LABS: BASOPHILS % (AUTO) 0.2 % (0.0-2.0); HEMATOCRIT 38 % (39-51); HEMOGLOBIN 12.8 g/dL (13.5-17.5); LYMPHOCYTES # (AUTO) 0.3 /CMM (0.8-4.8); LYMPHOCYTES % (AUTO) 5.1 % (20.0-44.0); MEAN CORPUSCULAR HGB CONC 34 g/dl (31.0-36.0); MEAN CORPUSCULAR VOLUME 96 fL (80-96); MONOCYTES # (AUTO) 0.3 /CMM (0.1-1.30); MONOCYTES % (AUTO) 4.1 % (2.0-12.0); NEUTROPHILS # (AUTO) 6.1 /CMM (1.8-8.9); NEUTROPHILS % (AUTO) 90.6 % (43.0-81.0); PLATELET COUNT (AUTO) 212 /CMM (150-450); RED BLOOD CELL COUNT(AUTO) 3.91 MIL/uL (4.5-6.0); WHITE BLOOD COUNT (AUTO) 6.8 K/uL (4.3-11.0)
[2019-01-03 08:00] VITALS: BP 139/83
[2019-01-03 08:16] LABS: ALBUMIN 3.6 g/dL (3.4-5.0); BILIRUBIN,TOTAL 0.7 mg/dL (0.2-1.0); CREATININE 0.8 mg/dL (0.6-1.3); MAGNESIUM 2.2 mg/dL (1.8-2.4); PHOSPHORUS 3.3 mg/dL (2.5-4.9); POTASSIUM 4.1 mmol/L (3.5-5.1); TOTAL PROTEIN, SERUM 6.7 g/dL (6.4-8.2)
[2019-01-03 09:00] VITALS: BP 139/83
[2019-01-03] MEDS: AMLODIPINE BESYLATE 5 MG TABLET PO SCH (09:00)
[2019-01-03] MEDS: APIXABAN 5 MG TABLET PO SCH ×2 (09:01→16:01)
[2019-01-03] MEDS: PANTOPRAZOLE 40 MG VIAL IV SCH (12:00)
--- NOTE | 2019-01-03 12:34 | NUR ---
RN MS NOTES PT INSIDE HIS ROOM, PAIN MEDICATION GIVEN FOR PAIN MANAGEMENT ORDERED, REASSESSED NEEDED, CALL LIGHT WITHIN REACH, NEEDS ATTENDED.
--- NOTE | 2019-01-03 13:50 | NUR ---
SW was informed by case cuca Rawls that pt. is interested in alcohol treatment programs. Pt. is being discharged to [facility] today. SABINA and top case assembler Curly met with pt. bedside. Pt. is alert and oriented x 4. SW gave pt. list of Alcohol rehabilitation programs and informed him to speak with the SW at [facility] to initiate the referral process for an alcohol treatment program. SABINA informed pt. next time he is admitted to [facility] and wants to attend an alcohol rehab program to inform his RN, doctor or SW during his initial day of hospitalization so SW can start the referral process while he is admitted to the hospital. Pt. understood. surgical services manager Curly to arrange transportation to [facility].
[2019-01-03] MEDS ORDERED: SERTRALINE HCL 25 MG TABLET PO SCH (15:00)
--- NOTE | 2019-01-03 16:50 | NUR ---
RN MS NOTES PT AWAKE, ALERT AND ORIENTED, NO COMPLAINT OF PAIN OR ANY DISCOMFORT, RESPIRATIONS NORMAL, DISCHARGE ORDER GIVEN BY DR. TERRAZAS, PT INFORMED, DISCHARGE AND MEDICATION INSTRUCTIONS PROVIDED TO PT, VERBALIZED UNDERSTANDING, BELONGINGS ACCOUNTED FOR, REPORT GIVEN TO KENN FERNANDEZ OF [facility], PICKED UP BY 2 AMBULANCE PERSONNEL, LEFT VIA GUERNEY IN STABLE CONDITION.
== END 2019-01-03 16:55 | DRG 438 ==
LOC: ER 02:47 → TELE 05:45 → MED 01-01 12:43
PROVIDERS: ADMIT Nurse Practitioner Acute Care; ATTEND Nurse Practitioner Acute Care
DX: K85.90 Acute pancreatitis without necrosis or infection, unspecified (principal); G92 Toxic encephalopathy; E44.0 Moderate protein-calorie malnutrition; J44.1 Chronic obstructive pulmonary disease with (acute) exacerbation; E87.2 Acidosis; J90 Pleural effusion, not elsewhere classified; F33.2 Major depressive disorder, recurrent severe without psychotic features; I25.10 Atherosclerotic heart disease of native coronary artery without angina pectoris; I10 Essential (primary) hypertension; E78.5 Hyperlipidemia, unspecified; F10.20 Alcohol dependence, uncomplicated; Z86.711 Personal history of pulmonary embolism; Z79.01 Long term (current) use of anticoagulants; N40.0 Benign prostatic hyperplasia without lower urinary tract symptoms; I45.10 Unspecified right bundle-branch block; F17.210 Nicotine dependence, cigarettes, uncomplicated; Z85.6 Personal history of leukemia; F19.90 Other psychoactive substance use, unspecified, uncomplicated
CPT/HCPCS: 36415; 71045-TC; 76705-TC; 80048-TC; 80053-TC; 80061-TC; 80076-TC; 82140-TC; 83605-TC; 83690-TC; 83735-TC; 84100-TC; 84484-TC; 85025-TC; 85730-TC; 87040-TC; 87081-TC; C9113; G0378; G0480; J2270; J2405; J2543; J2920; J2930; J7030; J7040; J7050; J7060; Q9967

== ENCOUNTER 2019-02-22 12:35 | Outpatient (CLI) | payer MEDICARE, MEDICAID ==
[~2019-02-22 12:35] MED LIST changes: -ATOR10TA PO; +IPRA4AER INH; +METH4TAB17 PO
== END 2019-02-22 23:59 | disposition home or self-care (01) ==
LOC: WOU 12:35
PROVIDERS: ATTEND Surgery
DX: L72.3 Sebaceous cyst (principal); C92.10 Chronic myeloid leukemia, BCR/ABL-positive, not having achieved remission; I10 Essential (primary) hypertension; Z79.899 Other long term (current) drug therapy
CPT/HCPCS: G0463

== ENCOUNTER 2019-03-01 08:06 | Day surgery (SDC) | payer MEDICARE, MEDICAID ==
[2019-03-01] MEDS ORDERED: LIDOCAINE HCL/PF 1% 30 ML SDV ONE (09:27)
[2019-03-01] MEDS ORDERED: BUPIVACAINE MPF 0.5% W/EPI INJ 30 ML VIAL ONE (09:27)
[2019-03-01] MEDS ORDERED: BACITRACIN ZINC OINT (15 GM) 15 GM TUBE TP ONE (10:12)
== END 2019-03-01 10:47 | disposition home or self-care (01) ==
LOC: DS 08:06
PROVIDERS: ATTEND Surgery
DX: L72.0 Epidermal cyst (principal); R22.1 Localized swelling, mass and lump, neck; I10 Essential (primary) hypertension; E78.5 Hyperlipidemia, unspecified; F31.9 Bipolar disorder, unspecified; Z90.89 Acquired absence of other organs; Z83.3 Family history of diabetes mellitus; N40.0 Benign prostatic hyperplasia without lower urinary tract symptoms; F41.9 Anxiety disorder, unspecified; Z88.8 Allergy status to other drugs, medicaments and biological substances; Z79.899 Other long term (current) drug therapy
CPT/HCPCS: 11424; A6209; A6402; J0690; J3490 ×2; J7030; 88304-TC

== ENCOUNTER 2019-03-14 14:14 | Outpatient (CLI) | payer MEDICARE, MEDICAID | END 2019-03-14 23:59 | disposition home or self-care (01) | LOC: CARD 14:14 | DX: I82.411 Acute embolism and thrombosis of right femoral vein (principal); J84.10 Pulmonary fibrosis, unspecified; I51.7 Cardiomegaly; I70.0 Atherosclerosis of aorta; J90 Pleural effusion, not elsewhere classified; J92.9 Pleural plaque without asbestos | CPT/HCPCS: 71045-TC; 93971-TC ==

== ENCOUNTER 2019-04-09 13:25 | Outpatient (CLI) | payer MEDICARE, MEDICAID | END 2019-04-09 23:59 | disposition home or self-care (01) | LOC: WOU 13:25 | PROVIDERS: ATTEND Surgery | DX: Z09 Encounter for follow-up examination after completed treatment for conditions other than malignant neoplasm (principal); Z87.2 Personal history of diseases of the skin and subcutaneous tissue; I10 Essential (primary) hypertension; C92.10 Chronic myeloid leukemia, BCR/ABL-positive, not having achieved remission; Z79.899 Other long term (current) drug therapy | CPT/HCPCS: G0463 ==

== ENCOUNTER 2019-06-06 15:34 | Outpatient (CLI) | payer MEDICARE, MEDICAID | END 2019-06-06 23:59 | disposition home or self-care (01) | LOC: RAD 15:34 | DX: M47.812 Spondylosis without myelopathy or radiculopathy, cervical region (principal); G62.9 Polyneuropathy, unspecified | CPT/HCPCS: 72040-TC ==

== ENCOUNTER 2020-01-30 13:28 | Outpatient (CLI) | payer MEDICAID, MEDICARE ==
[2020-01-30 14:53] LABS: BASOPHILS # (AUTO) 0.1 /CMM (0.0-0.2); BASOPHILS % (AUTO) 1.4 % (0.0-2.0); EOSINOPHILS % (AUTO) 3.1 % (0.0-6.0); HEMATOCRIT 40 % (39-51); HEMOGLOBIN 13.3 g/dL (13.5-17.5); LYMPHOCYTES # (AUTO) 1.6 /CMM (0.8-4.8); MEAN CORPUSCULAR HGB CONC 33 g/dl (31.0-36.0); MEAN CORPUSCULAR VOLUME 91 fL (80-96); MONOCYTES # (AUTO) 0.5 /CMM (0.1-1.30); MONOCYTES % (AUTO) 5.6 % (2.0-12.0); NEUTROPHILS # (AUTO) 6.2 /CMM (1.8-8.9); NEUTROPHILS % (AUTO) 70.9 % (43.0-81.0); PLATELET COUNT (AUTO) 358 /CMM (150-450); RED BLOOD CELL COUNT(AUTO) 4.39 MIL/uL (4.5-6.0); WHITE BLOOD COUNT (AUTO) 8.7 K/uL (4.3-11.0)
[2020-01-30 15:27] LABS: CHOLESTEROL 191 mg/dL (<200); HDL CHOLESTEROL 31 mg/dL (40-60); LDL 126 mg/dL (0-99); TRIGLYCERIDES 129 mg/dL (30-150)
[2020-01-30 15:41] LABS: ALBUMIN 3.8 g/dL (3.4-5.0); BILIRUBIN,TOTAL 0.3 mg/dL (0.2-1.0); CALCIUM, SERUM 9.2 mg/dL (8.5-10.1); POTASSIUM 4.1 mmol/L (3.5-5.1); TOTAL PROTEIN, SERUM 7.4 g/dL (6.4-8.2)
== END 2020-01-30 23:59 | disposition home or self-care (01) ==
LOC: LAB 13:28
PROVIDERS: ATTEND Internal Medicine Hematology & Oncology
DX: C92.10 Chronic myeloid leukemia, BCR/ABL-positive, not having achieved remission (principal); I82.409 Acute embolism and thrombosis of unspecified deep veins of unspecified lower extremity; E78.5 Hyperlipidemia, unspecified
CPT/HCPCS: 36415; 80053-TC; 80061-TC; 85025-TC; 85378-TC

== ENCOUNTER 2020-02-27 09:50 | Outpatient (CLI) | payer MEDICARE ==
[2020-02-27 10:56] LABS: ALBUMIN 3.7 g/dL (3.4-5.0); BILIRUBIN,TOTAL 0.6 mg/dL (0.2-1.0); CALCIUM, SERUM 9.1 mg/dL (8.5-10.1); TOTAL PROTEIN, SERUM 7.4 g/dL (6.4-8.2)
[2020-02-27 11:10] LABS: BASOPHILS % (AUTO) 0.6 % (0.0-2.0); HEMATOCRIT 38 % (39-51); HEMOGLOBIN 12.7 g/dL (13.5-17.5); LYMPHOCYTES # (AUTO) 1.5 /CMM (0.8-4.8); LYMPHOCYTES % (AUTO) 20.9 % (20.0-44.0); MEAN CORPUSCULAR HGB CONC 33 g/dl (31.0-36.0); MEAN CORPUSCULAR VOLUME 91 fL (80-96); MONOCYTES # (AUTO) 0.6 /CMM (0.1-1.30); MONOCYTES % (AUTO) 8.5 % (2.0-12.0); NEUTROPHILS # (AUTO) 4.9 /CMM (1.8-8.9); PLATELET COUNT (AUTO) 339 /CMM (150-450); RED BLOOD CELL COUNT(AUTO) 4.16 MIL/uL (4.5-6.0); WHITE BLOOD COUNT (AUTO) 7.3 K/uL (4.3-11.0)
== END 2020-02-27 23:59 | disposition home or self-care (01) ==
LOC: LAB 09:50
PROVIDERS: ATTEND Internal Medicine Hematology & Oncology
DX: C92.10 Chronic myeloid leukemia, BCR/ABL-positive, not having achieved remission (principal); E78.5 Hyperlipidemia, unspecified; I82.409 Acute embolism and thrombosis of unspecified deep veins of unspecified lower extremity
CPT/HCPCS: 80053-TC; 80061-TC; 85025-TC; 85378-TC

== ENCOUNTER 2020-03-26 14:44 | Outpatient (CLI) | payer MEDICARE ==
[2020-03-26 15:16] LABS: BASOPHILS # (AUTO) 0.1 /CMM (0.0-0.2); BASOPHILS % (AUTO) 0.7 % (0.0-2.0); EOSINOPHILS % (AUTO) 2.9 % (0.0-6.0); HEMATOCRIT 42 % (39-51); HEMOGLOBIN 14.1 g/dL (13.5-17.5); LYMPHOCYTES # (AUTO) 1.8 /CMM (0.8-4.8); LYMPHOCYTES % (AUTO) 20.4 % (20.0-44.0); MEAN CORPUSCULAR HGB CONC 33 g/dl (31.0-36.0); MEAN CORPUSCULAR VOLUME 94 fL (80-96); MONOCYTES # (AUTO) 0.6 /CMM (0.1-1.30); MONOCYTES % (AUTO) 6.5 % (2.0-12.0); NEUTROPHILS # (AUTO) 6.3 /CMM (1.8-8.9); NEUTROPHILS % (AUTO) 69.5 % (43.0-81.0); PLATELET COUNT (AUTO) 409 /CMM (150-450); RED BLOOD CELL COUNT(AUTO) 4.52 MIL/uL (4.5-6.0)
[2020-03-26 16:08] LABS: ALBUMIN 3.9 g/dL (3.4-5.0); BILIRUBIN,TOTAL 0.2 mg/dL (0.2-1.0); CALCIUM, SERUM 9.5 mg/dL (8.5-10.1); POTASSIUM 3.7 mmol/L (3.5-5.1); TOTAL PROTEIN, SERUM 7.9 g/dL (6.4-8.2)
[2020-03-26 16:17] LABS: FREE T4 (FREE THYROXINE) 1.44 ng/dL (0.76-1.46); PROSTATE SPECIFIC ANTIGEN SCR 1.41 ng/mL (0.00-4.00); THYROID STIMULATING HORMONE 0.632 uIU/mL (0.358-3.74)
== END 2020-03-26 23:59 | disposition home or self-care (01) ==
LOC: LAB 14:44 → MERGE 14:44 → LAB 23:59
PROVIDERS: ATTEND Internal Medicine Hematology & Oncology
DX: C92.11 Chronic myeloid leukemia, BCR/ABL-positive, in remission (principal); J90 Pleural effusion, not elsewhere classified; D64.9 Anemia, unspecified
CPT/HCPCS: 36415; 80053-TC; 82728-TC; 83540-TC; 84153-TC; 84439-TC; 84443-TC; 85025-TC